=== PATIENT | female | born 1975 | race Caucasian/White ===

== ENCOUNTER 2018-11-29 12:35 | Emergency (ER) | payer SELFPAY ==
[~2018-11-29] VITALS: Ht 162.6 cm; Wt 76.2 kg
--- OUTSIDE RECORDS SUMMARY | 2018-11-29 12:41 | XMS REPORT | Referral Summary ---
Author Author [facility] Organization [facility] Address Unknown Phone Unavailable Care Team Providers Care Power Plant Supervisor Name Role Phone No PCP, Pt States PCP Encounter VC Date(s): 12/06/17 - 12/06/17 [facility] [address] [place] [address] Discharge Disposition: 07-Left Without Being Seen Vital Signs No data available for this section Problem List Condition Effective Dates Status Health Status Informant Diabetes(Confirmed) Active Hyperlipidemia(Confi Active rmed) Allergies, Adverse Reactions, Alerts No Known Allergies Medications Aleve mg, Oral, q8hr, 0 Refill(s) Start Date: 04/30/14 Status: Ordered Ativan 1 mg oral tablet 1 mg 1 tabs, Oral, TID, as needed for anxiety, # 10 tabs, 0 Refill(s) Start Date: 12/06/17 Stop Date: 12/15/17 Status: Ordered gabapentin Oral, 0 Refill(s) Start Date: 08/29/17 Status: Ordered ibuprofen 800 mg, 0 Refill(s) Start Date: 04/30/14 Status: Ordered methadone Oral, 0 Refill(s) Start Date: 08/29/17 Status: Ordered Naprosyn 250 mg oral tablet 250 mg 1 tabs, Oral, BID, as needed for pain, # 20 tabs, 0 Refill(s) Start Date: 03/09/17 Status: Ordered promethazine 25 mg oral tablet 25 mg 1 tabs, Oral, q6hr, # 12 Each, 0 Refill(s) Start Date: 03/09/17 Status: Ordered promethazine 25 mg oral tablet 25 mg 1 tabs, Oral, QID, as needed for nausea/vomiting, # 15 tabs, 0 Refill(s) Start Date: 08/29/17 Status: Ordered Results No data available for this section Immunizations No data available for this section Procedures Procedure Date Related Diagnosis Body Site Status Cholecystectomy Completed Hysterectomy Completed Left lumpectomy - cancerous Completed Melanoma Removals - several Completed Social History Social History Type Response Smoking Status Never (less than 100 in lifetime) entered on: 11/08/17 Assessment and Plan No data available for this section
--- OUTSIDE RECORDS SUMMARY | 2018-11-29 12:41 | XMS REPORT | Referral Summary ---
Author Author [facility] Organization Via [facility] Address Unknown Phone Unavailable Care Team Providers Care Aquatics Instructor Name Role Phone No PCP, Pt States PCP Encounter VC Date(s): 03/09/18 - 03/09/18 [facility] [address] [place] [address]- Encounter Diagnosis Anxiety (Discharge Diagnosis) - 03/09/18 Discharge Disposition: 01-Home or Self Care Attending Physician: Devin Zamora DO Admitting Physician: Devin Zamora DO Vital Signs Most recent to 1 oldest [Reference Range]: Temperature Oral 37 degC [35.8-37.3 degC] (03/09/18 2:02 AM) Peripheral Pulse 83 bpm Rate [60-100 bpm] (03/09/18 4:05 AM) Respiratory Rate 18 br/min [14-20 br/min] (03/09/18 4:05 AM) Blood Pressure 121/72 mmHg [90-140/60-90 mmHg] (03/09/18 4:05 AM) SpO2 98 % (03/09/18 4:05 AM) Problem List Condition Effective Dates Status Health Status Informant Diabetes(Confirmed) Active Hyperlipidemia(Confi Active rmed) Allergies, Adverse Reactions, Alerts No Known Allergies Medications Aleve mg, Oral, q8hr, 0 Refill(s) Start Date: 04/30/14 Status: Ordered gabapentin Oral, 0 Refill(s) Start [...]
--- OUTSIDE RECORDS SUMMARY | 2018-11-29 12:41 | XMS REPORT | Referral Summary ---
Author Author [facility] Organization [facility] Address Unknown Phone Unavailable Care Team Providers Care Alcohol Law Enforcement Agent Name Role Phone No PCP, Pt States PCP Encounter VC Date(s): 08/29/17 - 08/29/17 [facility] [address] [place] [address] Discharge Diagnosis: Viral illness Discharge Diagnosis: Myalgia Discharge Disposition: 01-Home or Self Care Attending Physician: Mario Starkey MD Admitting Physician: Mario Starkey MD Vital Signs Most recent to 1 oldest [Reference Range]: Temperature Oral 36.1 degC [35.8-37.3 degC] (08/29/17 6:50 AM) Peripheral Pulse 75 bpm Rate [60-100 bpm] (08/29/17 6:50 AM) Heart Rate Monitored 56 bpm [60-100 bpm] *LOW* (08/29/17 12:30 PM) Respiratory Rate 16 br/min [14-20 br/min] (08/29/17 12:30 PM) Blood Pressure 99/63 mmHg [90-140/60-90 mmHg] (08/29/17 1:00 PM) Mean Arterial 79 mmHg Pressure, Cuff (08/29/17 1:00 PM) SpO2 94 % (08/29/17 12:30 PM) Problem List Condition Effective Dates Status Health Status Informant Diabetes(Confirmed) Active Hyperlipidemia(Confi Active rmed) Allergies, Adverse Reactions, Alerts No Known Allergies Medications Aleve mg, Oral, q8hr, 0 Refill(s) Start Date: 04/30/14 Status: Ordered gabapentin Oral, 0 Refill(s) Start Date: 08/29/17 Status: Ordered ibuprofen 800 mg, 0 Refill(s) Start Date: 8/13/14 Status: Ordered methadone Oral, 0 Refill(s) Start Date: 08/29/17 Status: Ordered Naprosyn 250 mg oral tablet 250 mg 1 tabs, Oral, BID, as needed for pain, # 20 tabs, 0 Refill(s) Start Date: 03/09/17 Status: Ordered Naprosyn 500 mg oral tablet 500 mg 1 tabs, Oral, BID, # 20 tabs, 0 Refill(s) Start Date: 08/29/17 Stop Date: 09/16/17 Status: Ordered promethazine 25 mg oral tablet 25 mg 1 tabs, Oral, q6hr, # 12 Each, 0 Refill(s) Start Date: 03/09/17 Status: Ordered promethazine 25 mg oral tablet 25 mg 1 tabs, Oral, QID, as needed for nausea/vomiting, # 15 tabs, 0 Refill(s) Start Date: 08/29/17 Status: Ordered Results Hematology Most recent to 1 oldest [Reference Range]: WBC [4.8-10.8 6.1 10*3/uL 10*3/uL] (08/29/17 7:21 AM) RBC [4.00-5.20] 4.74 (08/29/17 7:21 AM) Hgb [12.0-16.0 13.3 gm/dL gm/dL] (08/29/17 7:21 AM) Hct [37.0-47.0 %] 38.8 % (08/29/17 7:21 AM) MCV [82.0-99.0 fL] 81.9 fL *LOW* (08/29/17 7:21 AM) MCH [27.0-32.0 pg] 28.1 pg (08/29/17 7:21 AM) MCHC [32.0-36.0 34.3 gm/dL gm/dL] (08/29/17 7:21 AM) RDW [11.5-14.5 %] 12.7 % (08/29/17 7:21 AM) Platelet [150-400 260 10*3/uL 10*3/uL] (08/29/17 7:21 AM) MPV [9.4-12.4 fL] 9.1 fL *LOW* (08/29/17 7:21 AM) Immature 0.2 % Granulocytes (08/29/17 AM) [0.0-1.0 %] Neutrophils [51-75 63 % %] (08/29/17 AM) Lymphocytes [20-46 27 % %] (08/29/17 AM) Monocytes [4-11 %] 7 % (08/29/17 AM) Eosinophils [0-4 %] 2 % (08/29/17) Basophils [0-2 %] 0 % (08/29/17 AM) Neutro Absolute 3.87 [1.90-7.00] (08/29/17 AM) Lymph Absolute 1.67 [0.80-3.30] (08/29/17 AM) Shack[place]ord Absolute 0.44 [0.30-1.00] (08/29/17 AM) Eos Absolute 0.10 [0.00-0.50] (08/29/17 AM) Baso Absolute 0.02 [0.00-0.20] (08/29/17 AM) Nucleated RBC 0.0 /100 WBC Automated [0 /100 (08/29/17) WBC] Chemistry Most recent to 1 oldest [Reference Range]: Sodium Lvl [136-144 137 mEq/L mEq/L] (08/29/17 AM) Potassium Lvl 3.4 mEq/L [3.6-5.1 mEq/L] *LOW* (08/29/17 AM) Chloride [99-109 101 mEq/L mEq/L] (08/29/17 AM) CO2 [22-32 mEq/L] 26 mEq/L (08/29/17 AM) AGAP [3-20 mEq/L] 10 mEq/L (08/29/17 AM) BUN [4-20 mg/dL] 11 mg/dL (08/29/17 AM) Glucose Lvl [70-100 125 mg/dL mg/dL] *HI* (08/29/17 AM) Creatinine Lvl 0.82 mg/dL [0.44-1.03 mg/dL] (12/12/17 7:21 AM) eGFR [>60 mL/min] >60 mL/min 1 (08/29/17 7:21 AM) Calcium Lvl 9.5 mg/dL [8.6-10.0 mg/dL] (08/29/17 7:21 AM) Albumin Lvl [3.5-4.8 3.9 gm/dL gm/dL] (08/29/17 7:21 AM) Total Protein 7.3 gm/dL [6.1-7.9 gm/dL] (08/29/17 7:21 AM) Globulin [1.9-4.3 3.4 gm/dL gm/dL] (08/29/17 7:21 AM) ALT [14-54 U/L] 110 U/L *HI* (08/29/17 7:21 AM) AST [15-41 U/L] 70 U/L *HI* (08/29/17 7:21 AM) Alk Phos [26-104 99 U/L U/L] (08/29/17 7:21 AM) Bili Total [0.2-1.2 1.7 mg/dL 2 mg/dL] *HI* (08/29/17 7:21 AM) Lipase Lvl [8-48 27 U/L U/L] (08/29/17 7:21 AM) 1Result Comment: Multiply eGFR results by 1.21 for race. 2Result Comment: Naproxen, specifically the metabolite O-desmethylnaproxen, may cause spurious elevation in Total Bilirubin levels. Urinalysis Most recent to 1 oldest [Reference Range]: UA Color Anju *ABN* (08/29/17 7:21 AM) UA Appear Sl Cloudy (08/29/17 7:21 AM) UA pH [5.0-8.0] 5.0 (08/29/17 7:21 AM) UA Leuk Est Pos 1+ [Negative] *ABN* (08/29/17 7:21 AM) UA Nitrite Negative [Negative] (08/29/17 7:21 AM) UA Protein Pos 1+ [Negative] *ABN* (08/29/17 7:21 AM) UA Glucose Negative [Negative] (08/29/17 7:21 AM) UA Ketones Negative [Negative] (08/29/17 7:21 AM) UA Urobilinogen >=4.0 mg/dL [<1.0 mg/dL] (08/29/17 7:21 AM) UA Bili [Negative] Negative (08/29/17 7:21 AM) UA Blood [Negative] Negative (08/29/17 7:21 AM) UA Spec Grav 1.030 [1.003-1.030] (08/29/17 7:21 AM) Type Catheter (08/29/17 7:21 AM) UA WBC [0-4] 5-10 *ABN* (08/29/17 7:21 AM) Epithelial Cells 0-2 (08/29/17 7:21 AM) UA Bacteria Occasional *ABN* (08/29/17 7:21 AM) UA Mucous Present (08/29/17 7:21 AM) Microbiology Reports TEST: Cerebrospinal Fluid Culture and Smear STATUS: Order in Progress BODY SITE: SOURCE: Cerebrospinal Fluid COLLECTED DATE/TIME: 08/29/17 11:09 AM Gram Smear No white blood cells No microorganisms observed OIF=Oil Immersion Field LPF=Low Power Field TEST: Rapid Strep Group A STATUS: Auth (Verified) BODY SITE: SOURCE: Throat COLLECTED DATE/TIME: 08/29/17 7:53 AM Rapid Strep Group A Negative Immunizations No data available for this section Procedures Procedure Date Related Diagnosis Body Site Cholecystectomy Hysterectomy Left lumpectomy - cancerous Melanoma Removals - several Social History Social History Type Response Smoking Status Never smoker entered on: 02/05/16 Assessment and Plan No data available for this section
--- OUTSIDE RECORDS SUMMARY | 2018-11-29 12:41 | XMS REPORT | Referral Summary ---
Author Author [facility] Organization [facility] Address Unknown Phone Unavailable Care Team Providers Care It Specialist Name Role Phone No PCP, Pt States PCP Encounter VC Date(s): 03/09/17 - 03/09/17 [facility] [address] [place] [address] [phone] Discharge Diagnosis: Cough Discharge Diagnosis: Body aches Discharge Disposition: 01-Home or Self Care Attending Physician: Doni Mike MD Admitting Physician: Doni Mike MD Vital Signs Most recent to 1 oldest [Reference Range]: Temperature Oral 36.9 degC [35.8-37.3 degC] (03/09/17 9:47 AM) Peripheral Pulse 88 bpm Rate [60-100 bpm] (03/09/17 9:47 AM) Respiratory Rate 20 br/min [14-20 br/min] (03/09/17 9:47 AM) Blood Pressure 127/85 mmHg [90-140/60-90 mmHg] (03/09/17 9:47 AM) SpO2 94 % (03/09/17 9:47 AM) Problem List Condition Effective Dates Status Health Status Informant Diabetes(Confirmed) Active Hyperlipidemia(Confi Active rmed) Allergies, Adverse Reactions, Alerts No Known Allergies Medications Aleve mg, Oral, q8hr, 0 Refill(s) Start Date: 04/30/14 Status: Ordered ibuprofen 800 mg, 0 Refill(s) Start Date: 04/30/14 Status: Ordered Naprosyn 250 mg oral tablet 250 mg 1 tabs, Oral, BID, as needed for pain, # 20 tabs, 0 Refill(s) Start Date: 03/09/17 Status: Ordered promethazine 25 mg oral tablet 25 mg 1 tabs, Oral, q6hr, # 12 Each, 0 Refill(s) Start Date: 03/09/17 Status: Ordered Results Chemistry Most recent to 1 oldest [Reference Range]: Sodium Venous 141 mEq/L [136-144 mEq/L] (03/09/17 10:34 AM) Potassium Venous 3.9 mEq/L 1 [3.6-5.1 mEq/L] (03/09/17 10:34 AM) Calcium Ionized 1.15 mmol/L Venous [1.19-1.41 *LOW* mmol/L] (03/09/17 10:34 AM) Total CO2 Venous 27 mEq/L [25-29 mEq/L] (03/09/17 10:34 AM) HGB Venous NPT 13.3 gm/dL [12.0-16.0 gm/dL] (03/09/17 10:34 AM) HCT Venous 39.0 % [37.0-47.0 %] (03/09/17 10:34 AM) Glucose Venous 113 mg/dL [70-100 mg/dL] *HI* (03/09/17 10:34 AM) BUN Venous [4-20] 6 (03/09/17 10:34 AM) Creatinine Venous 0.7 mg/dL [0.4-1.0 mg/dL] (03/09/17 10:34 AM) Venous CL [99-109 105 mEq/L mEq/L] (03/09/17 10:34 AM) Anion [place], Camilo [3-20 9 mEq/L mEq/L] (03/09/17 10:34 AM) Screen, Negative Urine NPT (03/09/17 10:23 AM) 1Result Comment: This test was performed on a whole blood specimen. The presence or absence of hemolysis cannot be assessed. Hemolysis can falsely elevate potassium levels. Normals are for venous specimens only. Urinalysis Most recent to 1 oldest [Reference Range]: UA Color Straw (03/09/17 10:33 AM) UA Appear Clear (03/09/17 10:33 AM) UA pH [5.0-8.0] 5.0 (03/09/17 10:33 AM) UA Leuk Est Negative [Negative] (03/09/17 10:33 AM) UA Nitrite Negative [Negative] (03/09/17 10:33 AM) UA Protein Negative [Negative] (03/09/17 10:33 AM) UA Glucose Negative [Negative] (03/09/17 10:33 AM) UA Ketones Negative [Negative] (03/09/17 10:33 AM) UA Urobilinogen Negative [<1.0] (03/09/17 10:33 AM) UA Bili [Negative] Negative (03/09/17 10:33 AM) UA Blood [Negative] Negative (03/09/17 10:33 AM) UA Spec Grav 1.010 [1.003-1.030] (03/09/17 10:33 AM) Type Voided (03/09/17 10:33 AM) Immunizations No data available for this section Procedures Procedure Date Related Diagnosis Body Site Cholecystectomy Hysterectomy Left lumpectomy - cancerous Melanoma Removals - several Social History Social History Type Response Smoking Status Never smoker Assessment and Plan No data available for this section
--- OUTSIDE RECORDS SUMMARY | 2018-11-29 12:41 | XMS REPORT | Referral Summary ---
Author Author [facility] Organization [facility] Address Unknown Phone Unavailable Care Team Providers Care Ground Crew Supervisor Name Role Phone No PCP, Pt States PCP Encounter VC Date(s): 12/06/17 - 12/06/17 [facility] [address] [place] [address] Encounter Diagnosis Panic disorder (Discharge Diagnosis) - 12/06/17 Discharge Disposition: 01-Home or Self Care Attending Physician: Mario Starkey MD Admitting Physician: Mario Starkey MD Vital Signs Most recent to 1 oldest [Reference Range]: Temperature Oral 36.5 degC [35.8-37.3 degC] (12/06/17 5:48 AM) Peripheral Pulse 112 bpm Rate [60-100 bpm] *HI* (12/06/17 5:48 AM) Respiratory Rate 26 br/min [14-20 br/min] *HI* (12/06/17 5:48 AM) Blood Pressure 122/80 mmHg [90-140/60-90 mmHg] (12/06/17 5:48 AM) SpO2 99 % (12/06/17 5:48 AM) Problem List Condition Effective Dates Status [...] lifetime) entered on: 11/08/17 Assessment and Plan Extracted from: Title: TCC - TCM Referral Author: Antoinette Cary RN Date: 12/06/17 Referral to [facility] Referral Source: ED Patient Information: D/C Date: 12/06/17 Primary Diagnosis: Panic attack Initial TCM Appointment/Provider: Clinic deferred TCM Phone Calls:Date Attempted Contacted: Yes/No Comments 12/06/17 Yes Spoke with patient's daughter Kimmy [phone] per voice mail request. Advised we do not treat mental health d/o, advised [facility], offered to send information. She stated that would be good, confirmed street address.
--- OUTSIDE RECORDS SUMMARY | 2018-11-29 12:41 | XMS REPORT | Referral Summary ---
Author Author [facility] Organization [facility] Address Unknown Phone Unavailable Care Team Providers Care Indian Nanny Name Role Phone No PCP, Pt States PCP Encounter VC Date(s): 11/08/17 - 11/08/17 [facility] [address] [place] [address] Encounter Diagnosis Panic attacks (Discharge Diagnosis) - 11/08/17 Anxiety (Discharge Diagnosis) - 11/08/17 Discharge Disposition: 01-Home or Self Care Attending Physician: Ryan Ruvalcaba DO Admitting Physician: Ryan Ruvalcaba DO Vital Signs Most recent to 1 oldest [Reference Range]: Temperature Oral 37.4 degC [35.8-37.3 degC] *HI* (11/08/17 5:58 AM) Temperature Tympanic 36.4 degC [36.6-38.1 degC] *LOW* (11/08/17 9:49 AM) Peripheral Pulse 106 bpm Rate [60-100 bpm] *HI* (11/08/17 5:58 AM) Heart Rate Monitored 50 bpm [60-100 bpm] *LOW* (11/08/17 9:40 AM) Respiratory Rate 24 br/min [14-20 br/min] *HI* (11/08/17 5:58 AM) Blood Pressure 126/82 mmHg [90-140/60-90 mmHg] (11/08/17 6:20 AM) Mean Arterial 98 mmHg Pressure, Cuff (11/08/17 6:20 AM) SpO2 93 % (11/08/17 9:40 AM) Problem List Condition Effective Dates Status Health Status Informant Diabetes(Confirmed) Active Hyperlipidemia(Confi Active rmed) Allergies, Adverse Reactions, Alerts No Known Allergies Medications Aleve mg, Oral, q8hr, 0 Refill(s) Start Date: 8/13/14 Status: Ordered gabapentin Oral, 0 Refill(s) Start [...]
--- OUTSIDE RECORDS SUMMARY | 2018-11-29 12:42 | XMS REPORT ---
Author Author MIGRATION, PROVIDER Organization Unknown Address Unknown Phone Unavailable Care Team Providers Care Envelope Sealer Name Role Phone MIGRATION, PROVIDER Unavailable Unavailable PROBLEMS Unknown Problems ALLERGIES No Information ENCOUNTERS Encounter Location Date Diagnosis [facility] [address] [place] [address] [id number] Mar, [facility] [address] [place] [address] [id number] Feb, [facility] [address] [place] [address] [id number] January, [facility] [address] [place] [address] [phone] Dec, [facility] [address] [place] [address] [id number] Nov, [facility] [address] [place] [address] [phone] Oct, [facility] [address] [place] [address] [id number] Sep, [facility] [address] [place] [address] [phone] Sep, [facility] [address] [place] [address] [id number] Aug, [facility] [address] [place] [address] [id number] Jun, [facility] [address] [place] [address] [id number] May, [facility] [address] [place] [address] [phone] May, [facility] [address] [place] [address] [phone] Apr, [facility] [address] [place] [address] [phone] Mar, IMMUNIZATIONS No Known Immunizations SOCIAL HISTORY Never Assessed REASON FOR VISIT [place] [place] CARE VITAL SIGNS MEDICATIONS Unknown Medications RESULTS No Results PROCEDURES Procedure Date Ordered Result Body Site [facility] [place] 2014-10-15 N/A INSTRUCTIONS MEDICATIONS ADMINISTERED No Known Medications
--- OUTSIDE RECORDS SUMMARY | 2018-11-29 12:42 | XMS REPORT ---
Author Author MIGRATION, PROVIDER Organization Unknown Address Unknown Phone Unavailable Care Team Providers Care Fisher Oyster Name Role Phone MIGRATION, PROVIDER Unavailable Unavailable PROBLEMS Unknown Problems ALLERGIES No Information ENCOUNTERS Encounter Location Date Diagnosis [facility] [address] [place] [address] [id number] Mar, [facility] [address] [place] [address] [id number] Feb, [facility] [address] [place] [address] [id number] January, [facility] [address] [place] [address] [phone] Dec, [facility] [address] [place] [address] [id number] Nov, [facility] [address] [place] [address] [id number] Oct, [facility] [address] [place] [address] [id number] Sep, [facility] [address] [place] [address] [id number] Sep, [facility] [address] [place] [address] [id number] Aug, [facility] [address] [place] [address] [id number] Jun, [facility] [address] [place] [address] [id number] May, [facility] [address] [place] [address] [id number] May, [facility] [address] [place] [address] [id number] Apr, [facility] [address] [place] [address] [id number] Mar, IMMUNIZATIONS No Known Immunizations SOCIAL HISTORY Never Assessed [place] [place] VITAL SIGNS MEDICATIONS Unknown Medications RESULTS No Results PROCEDURES Procedure Date Ordered Result Body Site [facility] [place] 2014-09-22 N/A INSTRUCTIONS MEDICATIONS ADMINISTERED No Known Medications
--- OUTSIDE RECORDS SUMMARY | 2018-11-29 12:42 | XMS REPORT ---
Author Author MIGRATION, PROVIDER Organization Unknown Address Unknown Phone Unavailable Care Team Providers Care Crossing Watchman Name Role Phone MIGRATION, PROVIDER Unavailable Unavailable PROBLEMS Unknown Problems ALLERGIES No Information ENCOUNTERS Encounter Location Date Diagnosis [facility] [address] [place] [address] [id number] Mar, [facility] [address] [place] [address] [id number] Feb, [facility] [address] [place] [address] [id number] January, [facility] [address] [place] [address] [id number] Dec, [facility] [address] [place] [address] [id number] Nov, [facility] [address] [place] [address] [id number] Oct, [facility] [address] [place] [address] [id number] Sep, [facility] [address] [place] [address] [id number] Sep, [facility] [address] [place] [address] [id number] Aug, [facility] [address] [place] [address] [id number] Jun, [facility] [address] [place] [address] [phone] May, [facility] [address] [place] [address] [id number] May, [facility] [address] [place] [address] [id number] Apr, [facility] [address] [place] [address] [phone] Mar, IMMUNIZATIONS No Known Immunizations SOCIAL HISTORY Never Assessed REASON FOR VISIT [place] [place] CARE VITAL SIGNS MEDICATIONS Unknown Medications RESULTS No Results PROCEDURES Procedure Date Ordered Result Body Site [facility] [place] 2015-01-09 N/A INSTRUCTIONS MEDICATIONS ADMINISTERED No Known Medications
--- OUTSIDE RECORDS SUMMARY | 2018-11-29 12:42 | XMS REPORT ---
Author Author MIGRATION, PROVIDER Organization Unknown Address Unknown Phone Unavailable Care Team Providers Care Meat Soaker Name Role Phone MIGRATION, PROVIDER Unavailable Unavailable PROBLEMS Unknown Problems ALLERGIES No Information ENCOUNTERS Encounter Location Date Diagnosis [facility] [address] [place] [address] [id number] Mar, [facility] [address] [place] [address] [id number] Feb, [facility] [address] [place] [address] [id number] January, [facility] [address] [place] [address] [id number] Dec, [facility] [address] [place] [address] [id number] Nov, [facility] [address] [place] [address] [phone] Oct, [facility] [address] [place] [address] [id number] Sep, [facility] [address] [place] [address] [id number] Sep, [facility] [address] [place] [address] [id number] Aug, [facility] [address] [place] [address] [id number] Jun, [facility] [address] [place] [address] [id number] May, [facility] [address] [place] [address] [id number] May, [facility] [address] [place] [address] [phone] Apr, [facility] [address] [place] [address] [id number] Mar, IMMUNIZATIONS No Known Immunizations SOCIAL HISTORY Never Assessed REASON FOR VISIT [facility] [place] PLAN OF CARE VITAL SIGNS MEDICATIONS Unknown Medications RESULTS No Results PROCEDURES Procedure Date Ordered Result Body Site [facility] 2014-06-16 N/A INSTRUCTIONS MEDICATIONS ADMINISTERED No Known Medications
--- OUTSIDE RECORDS SUMMARY | 2018-11-29 12:42 | XMS REPORT ---
Author Author MIGRATION, PROVIDER Organization Unknown Address Unknown Phone Unavailable Care Team Providers Care Turnaround Engineer Name Role Phone MIGRATION, PROVIDER Unavailable Unavailable PROBLEMS Unknown Problems ALLERGIES No Information ENCOUNTERS Encounter Location Date Diagnosis [facility] [address] [place] [address] [phone] Mar, [facility] [address] [place] [address] [phone] Feb, [facility] [address] [place] [address] [phone] January, [facility] [address] [place] [address] [phone] Dec, [facility] [address] [place] [address] [phone] Nov, [facility] [address] [place] [address] [phone] Oct, [facility] [address] [place] [address] [id number] Sep, [facility] [address] [place] [address] [id number] Sep, [facility] [address] [place] [address] [id number] Aug, [facility] [address] [place] [address] [phone] Jun, [facility] [address] [place] [address] [phone] May, [facility] [address] [place] [address] [phone] May, [facility] [address] [place] [address] [phone] Apr, [facility] [address] [place] [address] [phone] Mar, IMMUNIZATIONS No Known Immunizations SOCIAL HISTORY Never Assessed REASON FOR VISIT [facility] [place] PLAN OF CARE VITAL SIGNS MEDICATIONS Unknown Medications RESULTS No Results PROCEDURES Procedure Date Ordered Result Body Site [facility]ICAL [facility], [facility] 2015-03-25 N/A INSTRUCTIONS MEDICATIONS ADMINISTERED No Known Medications
--- OUTSIDE RECORDS SUMMARY | 2018-11-29 12:42 | XMS REPORT | Continuity of Care Document ---
Author Author Rosario Kemp MD Organization [facility] [address] [facility] [place] [address] Phone Care Team Providers Care Guest Relations Receptionist Name Role Phone [facility], . PP Unavailable Payers Payer name Insurance type Covered libertarian ID Authorization(s) Unknown Problems Condition Effective Dates (start - stop) Clinical Status Carpal Tunnel Syndrome - *[place] Family History Family Member Diagnosis Age At Onset Status Sister (Unknown) Diabetes Yes Mother (Unknown) Cancer - thyroid Yes Sister (Unknown) Heart disease Yes Mother (Unknown) Hypertension Yes Social History Social History Element Description Quantity Unknown Allergies, Adverse Reactions, Alerts Substance Reaction Severity Status Unknown Medications Medication Instructions Dosage Effective Dates (start - stop) Status Lortab 5 mg-500 mg tablet take 1 tablet by oral route every 4 - 6 hours as needed for pain 0 - Active Immunizations Vaccine Date Status Comments Unknown Results Test Name Date and Time Measure Units Reference Range Abnormal Flag Comments Unknown Vital Signs Date / Time: Height Weight Pulse Rate Blood Pressure Temperature /14:15:00 64.00 in 158.00 lbs Procedures Procedure Date Unknown Encounters Encounter Location Date Patient Visit [facility] Advance Directives Directive Effective Date Unknown
--- OUTSIDE RECORDS SUMMARY | 2018-11-29 12:42 | XMS REPORT ---
Author Author MIGRATION, PROVIDER Organization Unknown Address Unknown Phone Unavailable Care Team Providers Care Observer Gravity Prospecting Name Role Phone MIGRATION, PROVIDER Unavailable Unavailable PROBLEMS Unknown Problems ALLERGIES No Information ENCOUNTERS Encounter Location Date Diagnosis [facility] [address] [place] [address] [phone] Mar, [facility] [address] [place] [address] [id number] Feb, [facility] [address] [place] [address] [phone] January, [facility] [address] [place] [address] [phone] Dec, [facility] [address] [place] [address] [id number] Nov, [facility] [address] [place] [address] [id number] Oct, [facility] [address] [place] [address] [phone] Sep, [facility] [address] [place] [address] [phone] Sep, [facility] [address] [place] [address] [phone] Aug, [facility] [address] [place] [address] [phone] Jun, [facility] [address] [place] [address] [phone] May, [facility] [address] [place] [address] [phone] May, [facility] [address] [place] [address] [phone] Apr, [facility] [address] [place] [address] [phone] Mar, IMMUNIZATIONS No Known Immunizations SOCIAL HISTORY Never Assessed REASON FOR VISIT EMR-[facility] [place] PLAN OF CARE VITAL SIGNS MEDICATIONS Unknown Medications RESULTS No Results PROCEDURES Procedure Date Ordered Result Body Site [facility], [facility] 2014-07-10 N/A INSTRUCTIONS MEDICATIONS ADMINISTERED No Known Medications
--- OUTSIDE RECORDS SUMMARY | 2018-11-29 12:42 | XMS REPORT ---
Author Author MIGRATION, PROVIDER Organization Unknown Address Unknown Phone Unavailable Care Team Providers Care Physical Chemistry Professor Name Role Phone MIGRATION, PROVIDER Unavailable Unavailable PROBLEMS Unknown Problems ALLERGIES No Information ENCOUNTERS Encounter Location Date Diagnosis [facility] [address] [place] [address] [id number] Mar, [facility] [address] [place] [address] [phone] Feb, [facility] [address] [place] [address] [phone] January, [facility] [address] [place] [address] [phone] Dec, [facility] [address] [place] [address] [phone] Nov, [facility] [address] [place] [address] [phone] Oct, [facility] [address] [place] [address] [phone] Sep, [facility] [address] [place] [address] [phone] Sep, [facility] [address] [place] [address] [phone] Aug, [facility] [address] [place] [address] [phone] Jun, [facility] [address] [place] [address] [phone] May, [facility] [address] [place] [address] [phone] May, [facility] [address] [place] [address] [phone] Apr, [facility] [address] [place] [address] [phone] Mar, IMMUNIZATIONS No Known Immunizations SOCIAL HISTORY Never Assessed REAS[place] FOR VISIT [place] [place] VITAL SIGNS MEDICATIONS Unknown Medications RESULTS No Results PROCEDURES Procedure Date Ordered Result Body Site [facility], [facility] 2014-11-14 N/A INSTRUCTIONS MEDICATIONS ADMINISTERED No Known Medications
--- OUTSIDE RECORDS SUMMARY | 2018-11-29 12:42 | XMS REPORT ---
Author Author MIGRATION, PROVIDER Organization Unknown Address Unknown Phone Unavailable Care Team Providers Care City Distribution Clerk Name Role Phone MIGRATION, PROVIDER Unavailable Unavailable PROBLEMS Unknown Problems ALLERGIES No Information ENCOUNTERS Encounter Location Date Diagnosis [facility] [address] [place] [address] [phone] Mar, [facility] [address] [place] [address] [id number] Feb, [facility] [address] [place] [address] [phone] January, [facility] [address] [place] [address] [id number] Dec, [facility] [address] [place] [address] [phone] Nov, [facility] [address] [place] [address] [phone] Oct, [facility] [address] [place] [address] [phone] Sep, [facility] [address] [place] [address] [phone] Sep, [facility] [address] [place] [address] [phone] Aug, [facility] [address] [place] [address] [phone] Jun, [facility] [address] [place] [address] [phone] May, [facility] [address] [place] [address] [phone] May, [facility] [address] [place] [address] [phone] Apr, [facility] [address] [place] [address] [phone] Mar, IMMUNIZATIONS No Known Immunizations SOCIAL HISTORY Never Assessed REAS[place] FOR V[place]IT [place] [place] VITAL SIGNS MEDICATIONS Unknown Medications RESULTS No Results PROCEDURES Procedure Date Ordered Result Body Site [facility] [place] 2014-06-17 N/A INSTRUCTIONS MEDICATIONS ADMINISTERED No Known Medications
--- OUTSIDE RECORDS SUMMARY | 2018-11-29 12:42 | XMS REPORT ---
Author Author MIGRATION, PROVIDER Organization Unknown Address Unknown Phone Unavailable Care Team Providers Care Coke Loader Name Role Phone MIGRATION, PROVIDER Unavailable Unavailable PROBLEMS Unknown Problems ALLERGIES No Information ENCOUNTERS Encounter Location Date Diagnosis [facility] [address] [place] [address] [id number] Mar, [facility] [address] [place] [address] [phone] Feb, [facility] [address] [place] [address] [phone] January, [facility] [address] [place] [address] [phone] Dec, [facility] [address] [place] [address] [phone] Nov, [facility] [address] [place] [address] [phone] Oct, [facility] [address] [place] [address] [phone] Sep, [facility] [address] [place] [address] [phone] Sep, [facility] [address] [place] [address] [phone] Aug, [facility] [address] [place] [address] [phone] Jun, [facility] [address] [place] [address] [phone] May, [facility] [address] [place] [address] [phone] May, [facility] [address] [place] [address] [phone] Apr, [facility] [address] [place] [address] [phone] Mar, IMMUNIZATIONS No Known Immunizations SOCIAL HISTORY Never Assessed REASON FOR VISIT EMR-[facility] PLAN OF CARE VITAL SIGNS MEDICATIONS Unknown Medications RESULTS No Results PROCEDURES Procedure Date Ordered Result Body Site [facility]ICAL [facility], [facility] 2014-09-08 N/A INSTRUCTIONS MEDICATIONS ADMINISTERED No Known Medications
--- OUTSIDE RECORDS SUMMARY | 2018-11-29 12:43 | XMS REPORT | Continuity of Care Document ---
Author Author [facility] Address Unknown Phone Unavailable Allergies Active Description Code Type Severity Reaction Onset Reported/Identified Relationship to Patient Clinical Status Yes No Known Allergies Drug Allergy N/A N/A 05/04/2013 Yes No Known Drug Allergies Drug Allergy N/A N/A 05/04/2013 Yes No Known Food Allergies Food Allergy N/A N/A 05/04/2013 Yes No Known Allergies NKMA N/A N/A 04/30/2014 Yes No Known Allergies No Known Allergies Drug Allergy Unknown N/A 2015 Medications Medication Packaging Start Date Stop Date Route Dosage Sig ibuprofen(ibuprofen) 04/30/2014 800 mg 800 mg naproxen(Aleve) 04/30/2014 Oral mg mg, Oral, q8hr ondansetron(Zofran) 2 mL 201603/09/2017 IV Push 4 mg 4 mg=2 mL, IV Push, Once ketorolac(Toradol) 1 mL 03/09/2017 03/09/2017 IV Push 15 mg 15 mg=1 mL, IV Push, Once promethazine(promethazine 25 mg oral tablet) 1 tabs 03/09/2017 Oral 25 mg 25 mg=1 tabs, Oral, q6hr, 12 Each, 0 Refill(s) naproxen(Naprosyn 250 mg oral tablet) 1 tabs 03/09/2017 Oral 250 mg 250 mg=1 tabs, Oral, BID, PRN: as needed for pain, 20 tabs, 0 Refill(s) ondansetron(Zofran) 2 mL 201608/29/2017 IV Push 4 mg 4 mg=2 mL, IV Push, q30min, PRN: Nausea or Vomiting methadone(methadone) 08/29/2017 Oral Oral, 0 Refill( s) gabapentin(gabapentin) 2016 Oral Oral, 0 Refill(s) metoclopramide(metoclopramide) 2 mL 08/29/2017 08/29/2017 IV Push 10 mg 10 mg=2 mL, IV Push, Once diphenhydrAMINE(diphenhydrAMINE) 0.5 mL 08/29/2017 08/29/2017 IV Push 25 mg 25 mg=0.5 mL, IV Push, Once HYDROmorphone(Dilaudid) 1 mL 201608/29/2017 IV Push 1 mg 1 mg=1 mL, IV Push, Once, PRN: Pain promethazine(promethazine 25 mg oral tablet) 1 tabs 08/29/2017 Oral 25 mg 25 mg=1 tabs, Oral, QID, PRN: as needed for nausea/vomiting, 15 tabs, 0 Refill(s) naproxen(Naprosyn 500 mg oral tablet) 1 tabs 08/29/2017 09/16/2017 Oral 500 mg 500 mg=1 tabs, Oral, BID, 20 tabs, 0 Refill(s) LORazepam(Ativan) 1 mL 12/06/2017 12/06/2017 IntraMuscular 2 mg 2 mg=1 mL, IntraMuscular, Once LORazepam(Ativan 1 mg oral tablet) 1 tabs 12/06/2017 12/15/2017 Oral 1 mg 1 mg=1 tabs, Oral, TID, PRN: as needed for anxiety, 10 tabs, 0 Refill(s) acetaminophen(acetaminophen) 2 tabs 05/27/2018 05/27/2018 Oral 1,000 mg 1,000 mg=2 tabs, Oral, Once albuterol(ProAir HFA 90 mcg/inh inhalation aerosol) 1 puffs 05/27/2018 Inhalation 1 puffs, Inhalation, q4hr, use with spacer chamber , PRN: as needed for wheezing, 8.5 g, 0 Refill(s) azithromycin(azithromycin 250 mg oral tablet) 1 tabs 05/27/2018 06/01/2018 Oral 250 mg 250 mg=1 tabs, Oral, Daily, for 5 days, 2 tabs PO day 1, 1 tab/day after that, 6 tabs, 0 Refill(s) acetaminophen(acetaminophen 500 mg oral tablet) 2 tabs 05/27/2018 06/01/2018 Oral 1,000 mg max 4 grams/ 24 hours, X 5 days, # 24 tabs, 0 Refill(s) 1,000 mg=2 tabs, Oral, TID, for 5 days, PRN: Pain max 4 grams/ 24 hours, 24 tabs, 0 Refill(s) ipratropium-albuterol(DuoNeb 0.5 mg-2.5 mg/3 mL inhalation solution ) 3 mL 05/27/2018 05/27/2018 NEB 3 mL, NEB, Once HYDROcodone-acetaminophen([place] 5 mg-325 mg oral tablet) 1 tabs 05/27/2018 05/27/2018 Oral 1 tabs, Oral, Once Problems Date Dx Coded Attending Type Code Diagnosis Diagnosed By 03/20/2013 Riki Presley DO Final 079.99 VIRAL INFECTION NOS 03/20/2013 Riki Presley DO Final 250.00 DM2/NOS UNCOMP NSU 03/20/2013 Riki Presley DO Admitting 786.2 COUGH 05/04/2013 Devin Zamora DO Final 250.00 DM2/NOS UNCOMP NSU 05/04/2013 Devin Zamora DO Final 338.19 ACUTE PAIN NEC 05/04/2013 Devin Zamora DO Final 338.29 CHRONIC PAIN NEC 05/04/2013 Devin Zamora DO Final 724.2 LUMBAGO 05/04/2013 Devin Zamora DO 724.5 BACKACHE NOS 08/30/2013 Festus PUCKETT, Catherine Y A 729.5 PAIN IN LIMB 08/02/2014 Jones Gan MD 008.45 INTESTINAL INFECTION DUE TO CLOSTRIDIUM DIFFICILE 08/02/2014 Jones Gan MD 272.1 PURE HYPERGLYCERIDEMIA 08/02/2014 Jones Gan MD 272.4 HYPERLIPIDEMIA NEC/NOS 08/02/2014 Jones Gan MD 789.09 08/02/2014 Jones Gan MD V10.90 PERSONAL HISTORY OF UNSPECIFIED MALIGNANT NEOPLASM 09/08/2014 [employer], [id number] V71.09 OBSERVATION OF OTHER SUSPECTED MENTAL CONDITION 03/14/2017 Mike Howard Final E11.9 Type 2 diabetes mellitus without complications 03/14/2017 Mike Howard Final K50.90 Crohn''s disease, unspecified, without complications 03/14/2017 Mike Howard Final R05 Cough 03/14/2017 Mike Howard Reason R50.9 Fever, unspecified 03/14/2017 Mike Howard Final R52 Pain, unspecified 03/14/2017 Rashid,Doni Final Z90.49 Acquired absence of other specified parts of digestive tract 03/14/2017 Rashid,Doni Final Z90.710 Acquired absence of both cervix and uterus 08/30/2017 Vayda,, Mario Final B34.9 Viral infection, unspecified 08/30/2017 Vayda,, Mario Final E11.9 Type 2 diabetes mellitus without complications 08/30/2017 Vayda,, Mario Final E78.5 Hyperlipidemia, unspecified 08/30/2017 Vayda,, Mario Final M79.1 Myalgia 08/30/2017 Vayda,, Mario Reason R68.83 Chills (without fever) 08/30/2017 Vayda,, Mario Final Z79.891 jail (current) use of opiate analgesic 08/30/2017 Vayda,, Mario Final Z90.49 Acquired absence of other specified parts of digestive tract 11/09/2017 Ryan Ruvalcaba Final E11.9 Type 2 diabetes mellitus without complications 11/09/2017 Ryan Ruvalcaba Final E78.5 Hyperlipidemia, unspecified 11/09/2017 Ryan Ruvalcaba Reason F41.0 Panic disorder [episodic paroxysmal anxiety] 11/09/2017 Ryan Ruvalcaba Final Z85.820 Personal history of malignant melanoma of skin 11/09/2017 Ryan Ruvalcaba Final Z90.49 Acquired absence of other specified parts of digestive tract 11/09/2017 Ryan Ruvalcaba Final Z90.710 Acquired absence of both cervix and uterus 12/07/2017 Mike Howard Reason R69 Illness, unspecified 12/14/2017 Vayda,, Mario Final E11.9 Type 2 diabetes mellitus without complications 12/14/2017 Vayda,, Mario Final E78.5 Hyperlipidemia, unspecified 12/14/2017 Vayda,, Mario Reason F41.0 Panic disorder [episodic paroxysmal anxiety] 12/14/2017 Vayda,, Mario Final I10 Essential (primary) hypertension 12/14/2017 Vayda,, Mario Final Z90.49 Acquired absence of other specified parts of digestive tract 12/14/2017 Vayda,, Mario Final Z90.710 Acquired absence of both cervix and uterus 03/12/2018 Zamora Jacob Final E11.9 Type 2 diabetes mellitus without complications 03/12/2018 Zamora Jacob Reason F41.9 Anxiety disorder, unspecified 05/30/2018 Rashid,Doni Final E11.9 Type 2 diabetes mellitus without complications 05/30/2018 Rashid,Doni Final E78.5 Hyperlipidemia, unspecified 05/30/2018 Rashid,Doni Final I10 Essential (primary) hypertension 05/30/2018 Rashid,Doni Final J18.9 Pneumonia, unspecified organism 05/30/2018 Rashid,Doni Final J20.9 Acute bronchitis, unspecified 05/30/2018 Rashid,, Doni Final J32.9 Chronic sinusitis, unspecified 05/30/2018 Rashid,Doni Reason R05 Cough 05/30/2018 Rashid,Doni Final Z90.49 Acquired absence of other specified parts of digestive tract 05/30/2018 Rashid,Doni Final Z90.710 Acquired absence of both cervix and uterus Procedures Code Description Performed By Performed On 86.59 CLOSURE SKIN SUBCUTANEOUS NEC [employer]pilart Flo [place] B 08/01/2013 [id number] [facility], MAINTENANCE 09/13/2014 <section xmlns="urn:hl7-org:v3" xmlns:xsi="http://www.w3.org/2001/ XMLSchema-instance"> <templateId root="[id number]" /> < templateId root="[id number]" /> <code codeSystemName= "LOINC" codeSystem="[id number]" code="88080-3" displayName="Results" /> <title>Results</title> <text> <table> <thead> <tr> <th>Test</th> <th>Result</th> <th>Range</th> </tr> </thead> <tbody> <tr> <th colspan="10">CBC W/DIFF - 08/02 10:45</th> </tr> <tr> <td>EOSINOPHIL #</td> <td>0.2 k/cumm</td> <td>0.1-0.5</td> </tr> <tr> <td>EOSINOPHIL %</td> <td>2 %</td> <td>2-4</td> </tr> <tr> <td>GRANULOCYTE #</td> <td>5.0 k/cumm</td > <td>2.0-9.0</td> </tr> <tr> <td>GRANULOCYTE &# 37;</td> <td>58 %</td> <td>50-75</td> </tr> <tr> <td>LYMPHOCYTE #</td> <td>2.9 k/cumm</td> <td> 1.0-4.0</td> </tr> <tr> <td>LYMPHOCYTE %</td> <td>34 %</td> <td>20-30</td> </tr> <tr> < td>MEAN CELL HGB</td> <td>28.0 pg</td> <td>27.0-33.0</td> </tr> <tr> <td>MEAN CELL HGB CONCENTRATION</td> <td >34.3 g/dL</td> <td>32.0-37.0</td> </tr> <tr> < td>MEAN CELL VOLUME</td> <td>81.5 fl</td> <td>80.0-100.0</td> </tr> <tr> <td>MONOCYTE #</td> <td>0.6 k/cumm</ td> <td>0.1-1.0</td> </tr> <tr> <td>MONOCYTE &# 37;</td> <td>6 %</td> <td>4-6</td> </tr> <tr > <td>RED BLOOD CELL</td> <td>4.65 m/cumm</td> <td> 4.00-6.00</td> </tr> <tr> <td>RED CELL DISTRIBUTION WIDTH </td> <td>13.1 %</td> <td>11.0-15.6</td> </tr> <tr> <td>WHITE BLOOD CELL</td> <td>8.6 k/cumm</td> <td>5.0-10.0</td> </tr> <tr> <td>HEMOGLOBIN</td> <td>13.0 gm/dL</td> <td>12.0-16.0</td> </tr> <tr> <td>HEMATOCRIT</td> <td>37.9 %</td> <td>37.0-47.0< /td> </tr> <tr> <td>PLATELET COUNT</td> <td>252 k/cumm</td> <td>150-450</td> </tr> <tr> < colspan="10">URINALYSIS, ROUTINE - 08/02/14 10:45</th> </tr> <tr> <td>UA LEUKOCYTE ESTERASE DIPSTICK</td> <td>NEGATIVE </td> <td>NEGATIVE</td> </tr> <tr> <td>UA NITRITE DIPSTICK</td> <td>NEGATIVE </td> <td>NEGATIVE</td> </tr > <tr> <td>UA PROTEIN DIPSTICK</td> <td>NEGATIVE </td> <td>NEGATIVE</td> </tr> <tr> <td>UA GLUCOSE DIPSTICK</td> <td>NEGATIVE </td> <td>NEGATIVE</td> </tr > <tr> <td>UA KETONE DIPSTICK</td> <td>NEGATIVE </td> <td>NEGATIVE</td> </tr> <tr> <td>UA UROBILINOGEN DIPSTICK</td> <td>NORMAL </td> <td>NORMAL</td> </tr> <tr> <td>UA BILIRUBIN DIPSTICK</td> <td> NEGATIVE </td> <td>NEGATIVE</td> </tr> <tr> <td> UA BLOOD DIPSTICK</td> <td>NEGATIVE </td> <td>NEGATIVE</td> </tr> <tr> <td>UA SPECIFIC GRAVITY</td> <td> 1.020 </td> <td>1.015-1.025</td> </tr> <tr> <td> UR PH</td> <td>5.0 </td> <td>5.0-7.0</td> </tr> <tr> <th colspan="10">METABOLIC PANEL, COMPREHN - 08/02/14 10:45</th> </tr> <tr> <td>POTASSIUM</td> <td>3.7 mmol/L</td > <td>3.5-5.3</td> </tr> <tr> <td>EST GFR (MDRD) </td> <td>> 60 mL/min</td> <td>> 59</td> </tr> <tr> <td>ANION GAP</td> <td>12 mmol/L</td> <td> 5-15</td> </tr> <tr> <td>EST CrCl (CG)</td> <td> > 60 mL/min</td> <td>> 59</td> </tr> <tr> <td>GLUCOSE</td> <td>146 mg/dL</td> <td>70-99</td> </tr > <tr> <td>CALCIUM</td> <td>8.6 mg/dL</td> <td >8.5-10.1</td> </tr> <tr> <td>BLOOD UREA NITROGEN</td> <td>7 mg/dL</td> <td>7-20</td> </tr> <tr> <td>CREATININE</td> <td>1.0 mg/dL</td> <td>0.6-1.0</td> </tr> <tr> <td>SODIUM</td> <td>142 mmol/L</td> <td>135-148</td> </tr> <tr> <td>CHLORIDE</td> <td>104 mmol/L</td> <td>98-110</td> </tr> <tr> <td>AST/SGOT</td> <td>30 Units/L</td> <td>10-37</td> </tr> <tr> <td>ALT/SGPT</td> <td>53 Units/L</td> <td>< 66</td> </tr> <tr> <td>CARBON DIOXIDE</ td> <td>26 mmol/L</td> <td>21-32</td> </tr> <tr > <td>TOTAL PROTEIN</td> <td>6.7 gm/dL</td> <td>6.4- 8.2</td> </tr> <tr> <td>ALBUMIN</td> <td>3.3 gm/ dL</td> <td>3.4-5.0</td> </tr> <tr> <td>BILI TOTAL</td> <td>0.7 mg/dL</td> <td>0.0-1.0</td> </tr> <tr> <td>ALKALINE PHOSPHATASE TOTAL</td> <td>96 IU/L</td > <td>45-117</td> </tr> <tr> <th colspan="10"> LIPASE - 08/02/14 10:45</th> </tr> <tr> <td>LIPASE</td> <td>107 Units/L</td> <td>73-393</td> </tr> <tr> <th colspan="10">C REACTIVE PROTEIN - 08/02/14 10:45</th> </tr > <tr> <td>C REACTIVE PROTEIN</td> <td>2.8 mg/L</td> <td>< 8.0</td> </tr> <tr> <th colspan="10"> CAMPYLOBACTER ANTIGEN - 08/02/14 10:50</th> </tr> <tr> < td>Microbiology</td> <td> </td> <td /> </tr> <tr > <th colspan="10">STOOL LEUKOCYTES - 08/02/14 10:50</th> </tr> <tr> <td>Microbiology</td> <td> </td> <td /> </tr> <tr> <th colspan="10">CLOSTRIDIUM DIFFICILE DNA - 08/02/14 10:50</th> </tr> <tr> <td>Microbiology</td> <td> </td> <td /> </tr> <tr> <th colspan= "10">THYROID STIM HORMONE (TSH) - 08/02/14 10:54</th> </tr> <tr> <td>THYROID STIM HORMONE (TSH)</td> <td>1.56 uIU/mL</td> <td>0.34-4.82</td> </tr> <tr> <th colspan="10">SED RATE - 08/02/14 10:54</th> </tr> <tr> <td>SED RATE</td> <td>11 mm/hr</td> <td>0-15</td> </tr> <tr> <th colspan="10">CBC W/DIFF - 08/03/14 05:48</th> </tr> <tr> <td>COMMENT</td> <td>REVIEWED </td> <td /> </ tr> <tr> <td>GRANULOCYTE #</td> <td>8.8 k/cumm</td> <td>2.0-9.0</td> </tr> <tr> <td>GRANULOCYTE %< /td> <td>77 %</td> <td>50-75</td> </tr> <tr > <td>LYMPHOCYTE #</td> <td>1.9 k/cumm</td> <td>1.0- 4.0</td> </tr> <tr> <td>LYMPHOCYTE %</td> < td>16 %</td> <td>20-30</td> </tr> <tr> <td> MEAN CELL HGB</td> <td>27.1 pg</td> <td>27.0-33.0</td> </tr> <tr> <td>MEAN CELL HGB CONCENTRATION</td> <td> 33.0 g/dL</td> <td>32.0-37.0</td> </tr> <tr> <td >MEAN CELL VOLUME</td> <td>82.0 fl</td> <td>80.0-100.0</td> </tr> <tr> <td>MONOCYTE #</td> <td>0.7 k/cumm</td > <td>0.1-1.0</td> </tr> <tr> <td>MONOCYTE % </td> <td>6 %</td> <td>4-6</td> </tr> <tr> <td>RED BLOOD CELL</td> <td>4.51 m/cumm</td> <td>4.00 -6.00</td> </tr> <tr> <td>RED CELL DISTRIBUTION WIDTH</td > <td>12.8 %</td> <td>11.0-15.6</td> </tr> < tr> <td>WHITE BLOOD CELL</td> <td>11.5 k/cumm</td> < td>5.0-10.0</td> </tr> <tr> <td>HEMOGLOBIN</td> <td>12.2 gm/dL</td> <td>12.0-16.0</td> </tr> <tr> <td>HEMATOCRIT</td> <td>37.0 %</td> <td>37.0-47.0</td> </tr> <tr> <td>PLATELET COUNT</td> <td>255 k/ cumm</td> <td>150-400</td> </tr> <tr> <th colspan="10">RENAL FUNCTION PANEL - 08/03/14 05:48</th> </tr> <tr > <td>POTASSIUM</td> <td>4.8 mmol/L</td> <td>3.5-5.3< /td> </tr> <tr> <td>EST GFR (MDRD)</td> <td>&gt ; 60 mL/min</td> <td>> 59</td> </tr> <tr> <td >ANION GAP</td> <td>7 mmol/L</td> <td>5-15</td> </tr> <tr> <td>EST CrCl (CG)</td> <td>> 60 mL/min</td> <td>> 59</td> </tr> <tr> <td>GLUCOSE</td> <td>135 mg/dL</td> <td>70-99</td> </tr> <tr> <td>CALCIUM</td> <td>8.8 mg/dL</td> <td>8.5-10.1</td> </tr> <tr> <td>BLOOD UREA NITROGEN</td> <td>4 mg/dL< /td> <td>7-20</td> </tr> <tr> <td>CREATININE</td > <td>0.8 mg/dL</td> <td>0.6-1.0</td> </tr> <tr > <td>SODIUM</td> <td>143 mmol/L</td> <td>135-148</td > </tr> <tr> <td>CHLORIDE</td> <td>110 mmol/L</ td> <td>98-110</td> </tr> <tr> <td>CARBON DIOXIDE</td> <td>26 mmol/L</td> <td>21-32</td> </tr> <tr> <td>ALBUMIN</td> <td>3.0 gm/dL</td> <td> 3.4-5.0</td> </tr> <tr> <td>PHOSPHORUS</td> <td> 2.5 mg/dL</td> <td>2.5-4.9</td> </tr> <tr> <th colspan="10">MAGNESIUM - 08/03/14 05:48</th> </tr> <tr> < td>MAGNESIUM</td> <td>1.5 mg/dL</td> <td>1.8-2.4</td> < /tr> <tr> <th colspan="10">AB SACCHAROMYCES CEREVISIAE - 05:48</th> </tr> <tr> <td>INTERPRETATION</td> <td>TEST NOT PERFORMED </td> <td /> </tr> <tr> <td>AB SACCHAROMYCES CEREVISIAE</td> <td>TEST NOT PERFORMED </td> <td>< 20</td> </tr> <tr> <td>AB SACCHAROMYCES CEREVISIAE</td> <td>TEST NOT PERFORMED </td> <td>< 20</td> </tr> <tr> < colspan="10">MRSA SURVEILLANCE SCREEN - 08/04/14 14:05</th> </tr> <tr> <td>Microbiology</td> <td> </td> <td /> </tr> <tr> < colspan= "10"> Screen, Urine NPT - 03/09/17 10:23</th> </tr> <tr> <td> Screen, Urine NPT</td> <td>Negative NA</td> <td /> </tr> <tr> <th colspan="10">Urinalysis with reflex microscopic - 03/09/17 10:33</th> </tr> <tr> <td>Appearance</td> <td>Clear NA</td> <td /> </tr> <tr> <td>Bilirubin</td> <td>Negative NA</td> <td> Negative</td> </tr> <tr> <td>Blood</td> <td> Negative NA</td> <td>Negative</td> </tr> <tr> < td>Color</td> <td>Straw NA</td> <td /> </tr> <tr > <td>Glucose, Urine</td> <td>Negative </td> <td> Negative</td> </tr> <tr> <td>Ketones</td> <td> Negative </td> <td>Negative</td> </tr> <tr> <td> Leukocyte Esterase</td> <td>Negative NA</td> <td>Negative</td > </tr> <tr> <td>Nitrites</td> <td>Negative NA</ td> <td>Negative</td> </tr> <tr> <td>pH</td> <td>5.0 NA</td> <td>5.0-8.0</td> </tr> <tr> <td>Protein</td> <td>Negative NA</td> <td>Negative</td> </tr> <tr> <td>Specific [place]</td> <td>1.010 NA </td> <td>1.003-1.030</td> </tr> <tr> <td>UA Collection type</td> <td>Voided NA</td> <td /> </tr> <tr> <td>Urobilinogen</td> <td>Negative mg/dL</td> <td><1.0</td> </tr> <tr> <th colspan="10">Chem 8 NPT - 03/09/17 10:34</th> </tr> <tr> <td>Anion Gap</td> <td>9 mEq/L</td> <td>3-20</td> </tr> <tr> <td>BUN Venous</td> <td>6 mg/dl</td> <td>4-20</td> </tr> <tr> <td>Calcium Ionized Venous</td> <td>1.15 mmol/L</td> <td>1.19-1.41</td> </tr> <tr> <td> Creatinine Venous</td> <td>0.7 mg/dL</td> <td>0.4-1.0</td> </tr> <tr> <td>Glucose Venous</td> <td>113 mg/dL</ td> <td>70-100</td> </tr> <tr> <td>Potassium, WB </td> <td>3.9 mEq/L</td> <td>3.6-5.1</td> </tr> <tr> <td>Sodium Venous</td> <td>141 mEq/L</td> <td> 136-144</td> </tr> <tr> <td>Total CO2 Venous</td> <td>27 mEq/L</td> <td>25-29</td> </tr> <tr> < td>Venous CL</td> <td>105 mEq/L</td> <td>99-109</td> </ tr> <tr> <td>HCT Venous</td> <td>39.0 %</td> <td>37.0-47.0</td> </tr> <tr> <td>HGB Venous NPT</td > <td>13.3 g/dL</td> <td>12.0-16.0</td> </tr> < tr> <th colspan="10">CBC With Platelet and Differential - 08/29/17 07: 21</th> </tr> <tr> <td>Absolute Basophils</td> < td>0.02 10*3/uL</td> <td>0.00-0.20</td> </tr> <tr> <td>Absolute Eosinophils</td> <td>0.10 10*3/uL</td> <td> 0.00-0.50</td> </tr> <tr> <td>Absolute Lymphocytes</td> <td>1.67 10*3/uL</td> <td>0.80-3.30</td> </tr> < tr> <td>Absolute Monocytes</td> <td>0.44 10*3/uL</td> <td>0.30-1.00</td> </tr> <tr> <td>Absolute Neutrophils< /td> <td>3.87 10*3/uL</td> <td>1.90-7.00</td> </tr> <tr> <td>Basophils</td> <td>0 %</td> <td>0-2 </td> </tr> <tr> <td>Eosinophils</td> <td>2 &#37 ;</td> <td>0-4</td> </tr> <tr> <td>HCT</td> <td>38.8 %</td> <td>37.0-47.0</td> </tr> <tr> <td>HGB</td> <td>13.3 g/dL</td> <td>12.0-16.0</td> </tr> <tr> <td>Immature Granulocytes</td> <td> 0.2 %</td> <td>0.0-1.0</td> </tr> <tr> <td> Lymphocytes</td> <td>27 %</td> <td>20-46</td> </tr > <tr> <td>MCH</td> <td>28.1 pg</td> <td>27.0- 32.0</td> </tr> <tr> <td>MCHC</td> <td>34.3 g/dL </td> <td>32.0-36.0</td> </tr> <tr> <td>MCV</td > <td>81.9 fL</td> <td>82.0-99.0</td> </tr> <tr > <td>Monocytes</td> <td>7 %</td> <td>4-11</td> </tr> <tr> <td>MPV</td> <td>9.1 fL</td> <td>9.4-12.4</td> </tr> <tr> <td>Neutrophils</td> <td>63 %</td> <td>51-75</td> </tr> <tr> <td>Nucleated RBC Automated</td> <td>0.0 /100 WBC</td> <td / > </tr> <tr> <td>Platelet Count</td> <td>260 K/ uL</td> <td>150-400</td> </tr> <tr> <td>RBC</td > <td>4.74 10*6/uL</td> <td>4.00-5.20</td> </tr> <tr> <td>RDW</td> <td>12.7 %</td> <td>11.5-14.5 </td> </tr> <tr> <td>WBC</td> <td>6.1 K/uL</td> <td>4.8-10.8</td> </tr> <tr> < colspan="10"> Urinalysis with reflex microscopic - 08/29/17 07:21</th> </tr> <tr > <td>Appearance</td> <td>Sl Cloudy NA</td> <td /> </tr> <tr> <td>Bilirubin</td> <td>Negative NA</td > <td>Negative</td> </tr> <tr> <td>Blood</td> <td>Negative NA</td> <td>Negative</td> </tr> <tr > <td>Color</td> <td>Anju NA</td> <td /> </tr > <tr> <td>Glucose, Urine</td> <td>Negative </td> <td>Negative</td> </tr> <tr> <td>Ketones</td> <td>Negative </td> <td>Negative</td> </tr> <tr> <td>Leukocyte Esterase</td> <td>Pos 1+ NA</td> <td> Negative</td> </tr> <tr> <td>Nitrites</td> <td> Negative NA</td> <td>Negative</td> </tr> <tr> < td>pH</td> <td>5.0 NA</td> <td>5.0-8.0</td> </tr> <tr> <td>Protein</td> <td>Pos 1+ NA</td> <td> Negative</td> </tr> <tr> <td>Specific [place]</td> <td>1.030 NA</td> <td>1.003-1.030</td> </tr> <tr> <td>UA Collection type</td> <td>Catheter NA</td> <td / > </tr> <tr> <td>Urobilinogen</td> <td>4.0 mg/dL </td> <td><1.0</td> </tr> <tr> <th colspan= "10">Urine Microscopic - 08/29/17 07:21</th> </tr> <tr> < td>Bacteria</td> <td>Occasional NA</td> <td /> </tr> <tr> <td>Epithelial Cells</td> <td>0 /HPF</td> <td /> </tr> <tr> <td>Urine Mucus</td> <td> Present NA</td> <td /> </tr> <tr> <td>WBC, Urine </td> <td>5 /HPF</td> <td>0-4</td> </tr> <tr> <th colspan="10">Comprehensive Metabolic Panel (CMP) - 08/29/17 07:21</ th> </tr> <tr> <td>Albumin</td> <td>3.9 g/dL</td > <td>3.5-4.8</td> </tr> <tr> <td>Alkaline Phosphatase</td> <td>99 U/L</td> <td>26-104</td> </tr> <tr> <td>ALT (SGPT)</td> <td>110 U/L</td> <td >14-54</td> </tr> <tr> <td>Anion Gap</td> <td> 10 mEq/L</td> <td>3-20</td> </tr> <tr> <td>AST ( SGOT)</td> <td>70 U/L</td> <td>15-41</td> </tr> <tr> <td>Bilirubin Total</td> <td>1.7 mg/dL</td> <td> 0.2-1.2</td> </tr> <tr> <td>BUN</td> <td>11 mg/ dL</td> <td>4-20</td> </tr> <tr> <td>Calcium</td > <td>9.5 mg/dL</td> <td>8.6-10.0</td> </tr> <tr > <td>Chloride</td> <td>101 mEq/L</td> <td>99-109</td > </tr> <tr> <td>CO2</td> <td>26 mEq/L</td> <td>22-32</td> </tr> <tr> <td>Creatinine</td> <td>0.82 mg/dL</td> <td>0.44-1.03</td> </tr> <tr> <td>Globulin</td> <td>3.4 g/dL</td> <td>1.9-4.3</td> </tr> <tr> <td>Glucose</td> <td>125 mg/dL</td> <td>70-100</td> </tr> <tr> <td>Potassium</td> <td>3.4 mEq/L</td> <td>3.6-5.1</td> </tr> <tr> <td>Protein</td> <td>7.3 g/dL</td> <td>6.1-7.9</td> </tr> <tr> <td>Sodium</td> <td>137 mEq/L</td> <td>136-144</td> </tr> <tr> <th colspan="10"> Lipase - 08/29/17 07:21</th> </tr> <tr> <td>Lipase</td> <td>27 U/L</td> <td>8-48</td> </tr> <tr> <th colspan="10">eGFR - 08/29/17 07:21</th> </tr> <tr> <td>eGFR</td> <td>>60 mL/min</td> <td>>60</td> </tr> <tr> <th colspan="10">Glucose, CSF - 08/29/17 11:09</th> </tr> <tr> <td>Glucose, CSF</td> <td>62 mg/dL</ td> <td>40-70</td> </tr> <tr> <th colspan="10"> Protein, CSF - 08/29/17 11:09</th> </tr> <tr> <td>Protein , CSF</td> <td>20 mg/dL</td> <td>15-45</td> </tr> <tr> <th colspan="10">CSF Cell Count with Differential - 08/29/17 11 :09</th> </tr> <tr> <td>Appearance, CSF</td> <td >Clear NA</td> <td /> </tr> <tr> <td>Color, CSF< /td> <td>Colorless NA</td> <td /> </tr> <tr> <td>Color, CSF Post Centrifugation</td> <td>Colorless NA</td> <td /> </tr> <tr> <td>Volume, CSF</td> < td>4.2 mL</td> <td /> </tr> <tr> <td> Mononuclear Cells, CSF</td> <td>90 %</td> <td /> </ tr> <tr> <td>Polynuclear Cells, CSF</td> <td>10 %</ td> <td /> </tr> <tr> <td>RBC, CSF</td> <td>1 /mm3</td> <td /> </tr> <tr> <td>WBC, CSF </td> <td>1 /mm3</td> <td>0-10</td> </tr> <tr> <th colspan="10">COMPREHENSIVE METABOLIC PANEL - 12/11/17 13:33</th> </tr> <tr> <td>GLUCOSE</td> <td>75 mg/dL</td> <td>65-99</td> </tr> <tr> <td>UREA NITROGEN (BUN)< /td> <td>12 mg/dL</td> <td>7-25</td> </tr> <tr> <td>CREATININE</td> <td>0.84 mg/dL</td> <td>0.50- 1.10</td> </tr> <tr> <td>eGFR NON-AFR. CAMEROONIAN</td> <td>86 mL/min/1.73m2</td> <td>> OR=60</td> </tr> <tr> <td>eGFR </td> <td>100 mL/min/1.73m2</ td> <td>> OR=60</td> </tr> <tr> <td>BUN/ CREATININE RATIO</td> <td>NOT APPLICABLE (calc)</td> <td>6-22< /td> </tr> <tr> <td>SODIUM</td> <td>139 mmol/L</ td> <td>135-146</td> </tr> <tr> <td>POTASSIUM</ td> <td>4.3 mmol/L</td> <td>3.5-5.3</td> </tr> < tr> <td>CHLORIDE</td> <td>101 mmol/L</td> <td>98-110< /td> </tr> <tr> <td>CARBON DIOXIDE</td> <td>30 mmol/L</td> <td>20-31</td> </tr> <tr> <td> CALCIUM</td> <td>9.7 mg/dL</td> <td>8.6-10.2</td> </tr > <tr> <td>PROTEIN, TOTAL</td> <td>7.0 g/dL</td> <td>6.1-8.1</td> </tr> <tr> <td>ALBUMIN</td> <td>4.4 g/dL</td> <td>3.6-5.1</td> </tr> <tr> <td>GLOBULIN</td> <td>2.6 g/dL (calc)</td> <td>1.9-3.7</td> </tr> <tr> <td>ALBUMIN/GLOBULIN RATIO</td> <td> 1.7 (calc)</td> <td>1.0-2.5</td> </tr> <tr> <td> BILIRUBIN, TOTAL</td> <td>0.8 mg/dL</td> <td>0.2-1.2</td> </tr> <tr> <td>ALKALINE PHOSPHATASE</td> <td>88 U/L </td> <td>33-115</td> </tr> <tr> <td>AST</td> <td>14 U/L</td> <td>10-30</td> </tr> <tr> <td>ALT</td> <td>14 U/L</td> <td>6-29</td> </tr> <tr> <th colspan="10">VITAMIN D, 25-HYDROXY, LC/MS/MS - 12/11/17 13:33</th> </tr> <tr> <td>VITAMIN D,25-OH,TOTAL,IA</td> <td>19 ng/mL</td> <td>30-100</td> </tr> <tr> <th colspan="10">CBC (H/H, RBC, INDICES, WBC, PLT) - 12/11/17 13:33</th> </tr> <tr> <td>WHITE BLOOD CELL COUNT</td> <td> 8.5 Thousand/uL</td> <td>3.8-10.8</td> </tr> <tr> <td>RED BLOOD CELL COUNT</td> <td>4.62 Million/uL</td> <td> 3.80-5.10</td> </tr> <tr> <td>HEMOGLOBIN</td> < td>12.9 g/dL</td> <td>11.7-15.5</td> </tr> <tr> <td>HEMATOCRIT</td> <td>38.2 %</td> <td>35.0-45.0</td> </tr> <tr> <td>MCV</td> <td>82.7 fL</td> <td>80.0-100.0</td> </tr> <tr> <td>MCH</td> <td> 27.9 pg</td> <td>27.0-33.0</td> </tr> <tr> <td> MCHC</td> <td>33.8 g/dL</td> <td>32.0-36.0</td> </tr> <tr> <td>RDW</td> <td>13.4 %</td> <td>11.0 -15.0</td> </tr> <tr> <td>PLATELET COUNT</td> < td>313 Thousand/uL</td> <td>140-400</td> </tr> <tr> <td>MPV</td> <td>11.4 fL</td> <td>7.5-12.5</td> </ tr> <tr> <th colspan="10">TSH W/REFLEX TO FT4 - 12/11/17 13:33</ th> </tr> <tr> <td>TSH W/REFLEX TO FT4</td> <td> 1.78 mIU/L</td> <td>NRG</td> </tr> <tr> <th colspan="10">LIPID PANEL - 12/11/17 13:33</th> </tr> <tr> <td>CHOLESTEROL, TOTAL</td> <td>227 mg/dL</td> <td><200</ td> </tr> <tr> <td>HDL CHOLESTEROL</td> <td>28 mg/dL</td> <td>>50</td> </tr> <tr> <td> TRIGLYCERIDES</td> <td>959 mg/dL</td> <td><150</td> </tr> <tr> <td>LDL-CHOLESTEROL</td> <td> mg/dL (calc)</ td> <td>NRG</td> </tr> <tr> <td>CHOL/HDLC RATIO< /td> <td>8.1 (calc)</td> <td><5.0</td> </tr> <tr> <td>NON HDL CHOLESTEROL</td> <td>199 mg/dL (calc)</td> <td><130</td> </tr> </tbody> </table> </text> <entry > <organizer moodCode="EVN" classCode="BATTERY"> <templateId root= "2.16.840.1.550111.10.20.22.4.1" /> <id nullFlavor="NA" /> <code codeSystem="local" code="CBCD" displayName="CBC W/DIFF" /> <statusCode code ="completed" /> <component> <observation moodCode="EVN" classCode= "OBS"> <templateId root="840.1.486559.10..4.2" /> < id nullFlavor="NA" /> <code codeSystem="local" code="EO#" displayName= "EOSINOPHIL #" /> <statusCode code="completed" /> < effectiveTime value="" /> <value unit="k/cumm" xsi:type="PQ " value="0.2" /> <referenceRange> <observationRange> <text>0.1-0.5</text> </observationRange> </ referenceRange> </observation> </component> <component> <observation moodCode="EVN" classCode="OBS"> <templateId root= "11.03.840.1.680511.07.07.22.4.2" /> <id nullFlavor="NA" /> < code codeSystem="local" code="EO%" displayName="EOSINOPHIL %" /> <statusCode code="completed" /> <effectiveTime value="" /> <value unit="%" xsi:type="PQ" value="2" /> < referenceRange> <observationRange> <text>2-4</text> </observationRange> </referenceRange> </observation> </component> <component> <observation moodCode="EVN" classCode= "OBS"> <templateId root="11.03.840.1.492904.10.22.4.2" /> < id nullFlavor="NA" /> <code codeSystem="local" code="GR#" displayName= "GRANULOCYTE #" /> <statusCode code="completed" /> < effectiveTime value="259929636931" /> <value unit="k/cumm" xsi:type="PQ " value="5.0" /> <referenceRange> <observationRange> <text>2.0-9.0</text> </observationRange> </ referenceRange> </observation> </component> <component> <observation moodCode="EVN" classCode="OBS"> <templateId root= "11.03.840.1.043166.10.22.4.2" /> <id nullFlavor="NA" /> < code codeSystem="local" code="GR%" displayName="GRANULOCYTE %" /> <statusCode code="completed" /> <effectiveTime value="694464919692 " /> <value unit="%" xsi:type="PQ" value="58" /> < referenceRange> <observationRange> <text>50-75</text> </observationRange> </referenceRange> </observation> </component> <component> <observation moodCode="EVN" classCode= "OBS"> <templateId root="11.03.840.1.325331.07.07.22.4.2" /> < id nullFlavor="NA" /> <code codeSystem="local" code="LY#" displayName= "LYMPHOCYTE #" /> <statusCode code="completed" /> < effectiveTime value="472086452007" /> <value unit="k/cumm" xsi:type="PQ " value="2.9" /> <referenceRange> <observationRange> <text>1.0-4.0</text> </observationRange> </ referenceRange> </observation> </component> <component> <observation moodCode="EVN" classCode="OBS"> <templateId root= "11.03.840.1.239606.1022.4.2" /> <id nullFlavor="NA" /> < code codeSystem="local" code="LY%" displayName="LYMPHOCYTE %" /> <statusCode code="completed" /> <effectiveTime value="645600228343" /> <value unit="%" xsi:type="PQ" value="34" /> < interpretationCode codeSystem="local" code="*" /> <referenceRange> <observationRange> <text>20-30</text> </ observationRange> </referenceRange> </observation> </ component> <component> <observation moodCode="EVN" classCode="OBS"> <templateId root="216.840.1.364186.10.20.22.4.2" /> <id nullFlavor="NA" /> <code codeSystem="local" code="MCH" displayName= "MEAN CELL HGB" /> <statusCode code="completed" /> < effectiveTime value="082379740584" /> <value unit="pg" xsi:type="PQ" value="28.0" /> <referenceRange> <observationRange> <text>27.0-33.0</text> </observationRange> </ referenceRange> </observation> </component> <component> <observation moodCode="EVN" classCode="OBS"> <templateId root= "16.840.1.230143.10.20.22.4.2" /> <id nullFlavor="NA" /> < code codeSystem="local" code="MCHC" displayName="MEAN CELL HGB CONCENTRATION" / > <statusCode code="completed" /> <effectiveTime value= "913856690862" /> <value unit="g/dL" xsi:type="PQ" value="34.3" /> <referenceRange> <observationRange> <text>32.0- 37.0</text> </observationRange> </referenceRange> </ observation> </component> <component> <observation moodCode= "EVN" classCode="OBS"> <templateId root="11.03.840.1.982582.07.07.22.4.2 " /> <id nullFlavor="NA" /> <code codeSystem="local" code="MCV " displayName="MEAN CELL VOLUME" /> <statusCode code="completed" /> <effectiveTime value="495443062961" /> <value unit="fl" xsi:type ="PQ" value="81.5" /> <referenceRange> <observationRange> <text>80.0-100.0</text> </observationRange> </ referenceRange> </observation> </component> <component> <observation moodCode="EVN" classCode="OBS"> <templateId root= "11.03.840.1.966600.07.07.22.4.2" /> <id nullFlavor="NA" /> < code codeSystem="local" code="MO#" displayName="MONOCYTE #" /> < statusCode code="completed" /> <effectiveTime value="414929933808" /> <value unit="k/cumm" xsi:type="PQ" value="0.6" /> < referenceRange> <observationRange> <text>0.1-1.0</text> </observationRange> </referenceRange> </observation > </component> <component> <observation moodCode="EVN" classCode="OBS"> <templateId root="11.03.840.1.958146.07.07.22.4.2" /> <id nullFlavor="NA" /> <code codeSystem="local" code="MO% " displayName="MONOCYTE %" /> <statusCode code="completed" /> <effectiveTime value="014157371534" /> <value unit="%" xsi: type="PQ" value="6" /> <referenceRange> <observationRange> <text>4-6</text> </observationRange> </ referenceRange> </observation> </component> <component> <observation moodCode="EVN" classCode="OBS"> <templateId root= "216.840.1.129078.10.22.4.2" /> <id nullFlavor="NA" /> < code codeSystem="local" code="RBC" displayName="RED BLOOD CELL" /> < statusCode code="completed" /> <effectiveTime value="144929591644" /> <value unit="m/cumm" xsi:type="PQ" value="4.65" /> < referenceRange> <observationRange> <text>4.00-6.00</text > </observationRange> </referenceRange> </observation > </component> <component> <observation moodCode="EVN" classCode="OBS"> <templateId root="216.840.1.867415.07.07.22.4.2" /> <id nullFlavor="NA" /> <code codeSystem="local" code="RDW" displayName="RED CELL DISTRIBUTION WIDTH" /> <statusCode code= "completed" /> <effectiveTime value="421763189126" /> <value unit="%" xsi:type="PQ" value="13.1" /> <referenceRange> <observationRange> <text>11.0-15.6</text> </ observationRange> </referenceRange> </observation> </ component> <component> <observation moodCode="EVN" classCode="OBS"> <templateId root="216.840.1.688850.10..4.2" /> <id nullFlavor="NA" /> <code codeSystem="local" code="WBC" displayName= "WHITE BLOOD CELL" /> <statusCode code="completed" /> < effectiveTime value="674956595372" /> <value unit="k/cumm" xsi:type="PQ " value="8.6" /> <referenceRange> <observationRange> <text>5.0-10.0</text> </observationRange> </ referenceRange> </observation> </component> <component> <observation moodCode="EVN" classCode="OBS"> <templateId root= "216.840.1.917534.10...4.2" /> <id nullFlavor="NA" /> < code codeSystem="local" code="HGBT" displayName="HEMOGLOBIN" /> < statusCode code="completed" /> <effectiveTime value="339287829947" /> <value unit="gm/dL" xsi:type="PQ" value="13.0" /> < referenceRange> <observationRange> <text>12.0-16.0</text > </observationRange> </referenceRange> </observation > </component> <component> <observation moodCode="EVN" classCode="OBS"> <templateId root="11.03.840.1.051701...4.2" /> <id nullFlavor="NA" /> <code codeSystem="local" code="HCTT" displayName="HEMATOCRIT" /> <statusCode code="completed" /> < effectiveTime value="298326127365" /> <value unit="%" xsi:type="PQ " value="37.9" /> <referenceRange> <observationRange> <text>37.0-47.0</text> </observationRange> </ referenceRange> </observation> </component> <component> <observation moodCode="EVN" classCode="OBS"> <templateId root= "11.03.840.1.461054.10.20.22.4.2" /> <id nullFlavor="NA" /> < code codeSystem="local" code="PLT" displayName="PLATELET COUNT" /> < statusCode code="completed" /> <effectiveTime value="760608170639" /> <value unit="k/cumm" xsi:type="PQ" value="252" /> < referenceRange> <observationRange> <text>150-450</text> </observationRange> </referenceRange> </observation > </component> </organizer> </entry> <entry> <organizer moodCode= "EVN" classCode="BATTERY"> <templateId root="216.840.1.368252.10...4.1 " /> <id nullFlavor="NA" /> <code codeSystem="local" code="UA" displayName="URINALYSIS, ROUTINE" /> <statusCode code="completed" /> < component> <observation moodCode="EVN" classCode="OBS"> < templateId root="216.840.1.149491.10...4.2" /> <id nullFlavor="NA " /> <code codeSystem="local" code="LEUESU" displayName="UA LEUKOCYTE ESTERASE DIPSTICK" /> <statusCode code="completed" /> < effectiveTime value="191756607623" /> <value unit="" xsi:type="PQ" value="NEGATIVE" /> <referenceRange> <observationRange> <text>NEGATIVE</text> </observationRange> </ referenceRange> </observation> </component> <component> <observation moodCode="EVN" classCode="OBS"> <templateId root= "216.840.1.323978.10...4.2" /> <id nullFlavor="NA" /> < code codeSystem="local" code="NITRIU" displayName="UA NITRITE DIPSTICK" /> <statusCode code="completed" /> <effectiveTime value="771781688932 " /> <value unit="" xsi:type="PQ" value="NEGATIVE" /> < referenceRange> <observationRange> <text>NEGATIVE</text > </observationRange> </referenceRange> </observation > </component> <component> <observation moodCode="EVN" classCode="OBS"> <templateId root="11.03.840.1.136607.10.4.2" /> <id nullFlavor="NA" /> <code codeSystem="local" code="PROTEIU " displayName="UA PROTEIN DIPSTICK" /> <statusCode code="completed" /> <effectiveTime value="298386059108" /> <value unit="" xsi: type="PQ" value="NEGATIVE" /> <referenceRange> < observationRange> <text>NEGATIVE</text> </ observationRange> </referenceRange> </observation> </ component> <component> <observation moodCode="EVN" classCode="OBS"> <templateId root="840.1.004286.07.07.22.4.2" /> <id nullFlavor="NA" /> <code codeSystem="local" code="DGLUU" displayName= "UA GLUCOSE DIPSTICK" /> <statusCode code="completed" /> < effectiveTime value="657306458129" /> <value unit="" xsi:type="PQ" value="NEGATIVE" /> <referenceRange> <observationRange> <text>NEGATIVE</text> </observationRange> </ referenceRange> </observation> </component> <component> <observation moodCode="EVN" classCode="OBS"> <templateId root= "840.1.354022.10..4.2" /> <id nullFlavor="NA" /> < code codeSystem="local" code="KETONU" displayName="UA KETONE DIPSTICK" /> <statusCode code="completed" /> <effectiveTime value="998903152912 " /> <value unit="" xsi:type="PQ" value="NEGATIVE" /> < referenceRange> <observationRange> <text>NEGATIVE</text > </observationRange> </referenceRange> </observation > </component> <component> <observation moodCode="EVN" classCode="OBS"> <templateId root="11.03.840.1.824408.07.07.22.4.2" /> <id nullFlavor="NA" /> <code codeSystem="local" code="UROBILU " displayName="UA UROBILINOGEN DIPSTICK" /> <statusCode code="completed " /> <effectiveTime value="956208136857" /> <value unit="" xsi :type="PQ" value="NORMAL" /> <referenceRange> < observationRange> <text>NORMAL</text> </observationRange > </referenceRange> </observation> </component> < component> <observation moodCode="EVN" classCode="OBS"> < templateId root="11.03.840.1.337737.07.07.22.4.2" /> <id nullFlavor="NA " /> <code codeSystem="local" code="BILU" displayName="UA BILIRUBIN DIPSTICK" /> <statusCode code="completed" /> <effectiveTime value="301056053168" /> <value unit="" xsi:type="PQ" value="NEGATIVE" / > <referenceRange> <observationRange> <text> NEGATIVE</text> </observationRange> </referenceRange> </observation> </component> <component> <observation moodCode ="EVN" classCode="OBS"> <templateId root= "11.03.840.1.905469.07.07.22.4.2" /> <id nullFlavor="NA" /> < code codeSystem="local" code="[place]" displayName="UA BLOOD DIPSTICK" /> < statusCode code="completed" /> <effectiveTime value="864513612821" /> <value unit="" xsi:type="PQ" value="NEGATIVE" /> < referenceRange> <observationRange> <text>NEGATIVE</text > </observationRange> </referenceRange> </observation > </component> <component> <observation moodCode="EVN" classCode="OBS"> <templateId root="2.16.840.1.632425.10..22.4.2" /> <id nullFlavor="NA" /> <code codeSystem="local" code="SPGRU" displayName="UA SPECIFIC GRAVITY" /> <statusCode code="completed" /> <effectiveTime value="305862097652" /> <value unit="" xsi:type= "PQ" value="1.020" /> <referenceRange> <observationRange> <text>1.015-1.025</text> </observationRange> </ referenceRange> </observation> </component> <component> <observation moodCode="EVN" classCode="OBS"> <templateId root= "2.16.840.1.812720.10..22.4.2" /> <id nullFlavor="NA" /> < code codeSystem="local" code="JAMEEL" displayName="UR PH" /> <statusCode code="completed" /> <effectiveTime value="016965521803" /> < value unit="" xsi:type="PQ" value="5.0" /> <referenceRange> <observationRange> <text>5.0-7.0</text> </ observationRange> </referenceRange> </observation> </ component> </organizer> </entry> <entry> <organizer moodCode="EVN" classCode="BATTERY"> <templateId root="840.1.775386.07.07.22.4.1" /> <id nullFlavor="NA" /> <code codeSystem="local" code="METABC" displayName="METABOLIC PANEL, COMPREHN" /> <statusCode code="completed" /> <component> <observation moodCode="EVN" classCode="OBS"> < templateId root="840.1.495973.07.07.22.4.2" /> <id nullFlavor="NA " /> <code codeSystem="local" code="K" displayName="POTASSIUM" /> <statusCode code="completed" /> <effectiveTime value="194264772429 " /> <value unit="mmol/L" xsi:type="PQ" value="3.7" /> < referenceRange> <observationRange> <text>3.5-5.3</text> </observationRange> </referenceRange> </observation > </component> <component> <observation moodCode="EVN" classCode="OBS"> <templateId root="840.1.824134.07.07.22.4.2" /> <id nullFlavor="NA" /> <code codeSystem="local" code="eGFR" displayName="EST GFR (MDRD)" /> <statusCode code="completed" /> <effectiveTime value="181025690069" /> <value unit="mL/min" xsi:type ="PQ" value="> 60" /> <referenceRange> <observationRange > <text>> 59</text> </observationRange> </ referenceRange> </observation> </component> <component> <observation moodCode="EVN" classCode="OBS"> <templateId root= "11.03.840.1.878974.07.07.22.4.2" /> <id nullFlavor="NA" /> < code codeSystem="local" code="GAP" displayName="ANION GAP" /> < statusCode code="completed" /> <effectiveTime value="581409751945" /> <value unit="mmol/L" xsi:type="PQ" value="12" /> < referenceRange> <observationRange> <text>5-15</text> </observationRange> </referenceRange> </observation> </component> <component> <observation moodCode="EVN" classCode= "OBS"> <templateId root="2.16.840.1.393843.10...4.2" /> < id nullFlavor="NA" /> <code codeSystem="local" code="eCrCl" displayName ="EST CrCl (CG)" /> <statusCode code="completed" /> < effectiveTime value="286133526116" /> <value unit="mL/min" xsi:type="PQ " value="> 60" /> <referenceRange> <observationRange> <text>> 59</text> </observationRange> </ referenceRange> </observation> </component> <component> <observation moodCode="EVN" classCode="OBS"> <templateId root= "2.16.840.1.086556.10...4.2" /> <id nullFlavor="NA" /> < code codeSystem="local" code="GLU" displayName="GLUCOSE" /> < statusCode code="completed" /> <effectiveTime value="784693316949" /> <value unit="mg/dL" xsi:type="PQ" value="146" /> < interpretationCode codeSystem="local" code="*" /> <referenceRange> <observationRange> <text>70-99</text> </ observationRange> </referenceRange> </observation> </ component> <component> <observation moodCode="EVN" classCode="OBS"> <templateId root="216.840.1.216067.10..22.4.2" /> <id nullFlavor="NA" /> <code codeSystem="local" code="CA" displayName= "CALCIUM" /> <statusCode code="completed" /> <effectiveTime value="131011481135" /> <value unit="mg/dL" xsi:type="PQ" value="8.6" / > <referenceRange> <observationRange> <text>8.5 -10.1</text> </observationRange> </referenceRange> </ observation> </component> <component> <observation moodCode= "EVN" classCode="OBS"> <templateId root="16.840.1.901700...4.2 " /> <id nullFlavor="NA" /> <code codeSystem="local" code="BUN " displayName="BLOOD UREA NITROGEN" /> <statusCode code="completed" /> <effectiveTime value="727856982501" /> <value unit="mg/dL" xsi:type="PQ" value="7" /> <referenceRange> < observationRange> <text>7-20</text> </observationRange> </referenceRange> </observation> </component> < component> <observation moodCode="EVN" classCode="OBS"> < templateId root="11.03.840.1.096251.10..22.4.2" /> <id nullFlavor="NA " /> <code codeSystem="local" code="CREAT" displayName="CREATININE" /> <statusCode code="completed" /> <effectiveTime value= "974721147338" /> <value unit="mg/dL" xsi:type="PQ" value="1.0" /> <referenceRange> <observationRange> <text>0.6-1.0< /text> </observationRange> </referenceRange> </ observation> </component> <component> <observation moodCode= "EVN" classCode="OBS"> <templateId root="216.840.1.416869.10..22.4.2 " /> <id nullFlavor="NA" /> <code codeSystem="local" code="NA " displayName="SODIUM" /> <statusCode code="completed" /> < effectiveTime value="699475299645" /> <value unit="mmol/L" xsi:type="PQ " value="142" /> <referenceRange> <observationRange> <text>135-148</text> </observationRange> </ referenceRange> </observation> </component> <component> <observation moodCode="EVN" classCode="OBS"> <templateId root= "11.03.840.1.651843.07.07.22.4.2" /> <id nullFlavor="NA" /> < code codeSystem="local" code="CL" displayName="CHLORIDE" /> < statusCode code="completed" /> <effectiveTime value="710266327452" /> <value unit="mmol/L" xsi:type="PQ" value="104" /> < referenceRange> <observationRange> <text>98-110</text> </observationRange> </referenceRange> </observation> </component> <component> <observation moodCode="EVN" classCode ="OBS"> <templateId root="11.03.840.1.426070...4.2" /> < id nullFlavor="NA" /> <code codeSystem="local" code="AST" displayName= "AST/SGOT" /> <statusCode code="completed" /> <effectiveTime value="970108948263" /> <value unit="Units/L" xsi:type="PQ" value="30" /> <referenceRange> <observationRange> <text>10 -37</text> </observationRange> </referenceRange> </ observation> </component> <component> <observation moodCode= "EVN" classCode="OBS"> <templateId root="16.840.1.227042.10..22.4.2 " /> <id nullFlavor="NA" /> <code codeSystem="local" code="ALT " displayName="ALT/SGPT" /> <statusCode code="completed" /> < effectiveTime value="376277962644" /> <value unit="Units/L" xsi:type= "PQ" value="53" /> <referenceRange> <observationRange> <text>< 66</text> </observationRange> </ referenceRange> </observation> </component> <component> <observation moodCode="EVN" classCode="OBS"> <templateId root= "840.1.277713.10..4.2" /> <id nullFlavor="NA" /> < code codeSystem="local" code="CO2" displayName="CARBON DIOXIDE" /> < statusCode code="completed" /> <effectiveTime value="290962745332" /> <value unit="mmol/L" xsi:type="PQ" value="26" /> < referenceRange> <observationRange> <text>21-32</text> </observationRange> </referenceRange> </observation> </component> <component> <observation moodCode="EVN" classCode= "OBS"> <templateId root="11.03.840.1.956767.10.2022.4.2" /> < id nullFlavor="NA" /> <code codeSystem="local" code="TP" displayName= "TOTAL PROTEIN" /> <statusCode code="completed" /> < effectiveTime value="099621047568" /> <value unit="gm/dL" xsi:type="PQ " value="6.7" /> <referenceRange> <observationRange> <text>6.4-8.2</text> </observationRange> </ referenceRange> </observation> </component> <component> <observation moodCode="EVN" classCode="OBS"> <templateId root= "16.840.1.955064.10.20.22.4.2" /> <id nullFlavor="NA" /> < code codeSystem="local" code="ALB" displayName="ALBUMIN" /> < statusCode code="completed" /> <effectiveTime value="802834848498" /> <value unit="gm/dL" xsi:type="PQ" value="3.3" /> < interpretationCode codeSystem="local" code="*" /> <referenceRange> <observationRange> <text>3.4-5.0</text> </ observationRange> </referenceRange> </observation> </ component> <component> <observation moodCode="EVN" classCode="OBS"> <templateId root="16.840.1.050717.10.20.22.4.2" /> <id nullFlavor="NA" /> <code codeSystem="local" code="BILTOT" displayName= "BILI TOTAL" /> <statusCode code="completed" /> < effectiveTime value="864369277338" /> <value unit="mg/dL" xsi:type="PQ " value="0.7" /> <referenceRange> <observationRange> <text>0.0-1.0</text> </observationRange> </ referenceRange> </observation> </component> <component> <observation moodCode="EVN" classCode="OBS"> <templateId root= "2.16.840.1.779046.10..22.4.2" /> <id nullFlavor="NA" /> < code codeSystem="local" code="ALKP" displayName="ALKALINE PHOSPHATASE TOTAL" /> <statusCode code="completed" /> <effectiveTime value= "424806315399" /> <value unit="IU/L" xsi:type="PQ" value="96" /> <referenceRange> <observationRange> <text>45-117</ text> </observationRange> </referenceRange> </ observation> </component> </organizer> </entry> <entry> <organizer moodCode="EVN" classCode="BATTERY"> <templateId root= "216.840.1.411608.10...4.1" /> <id nullFlavor="NA" /> <code codeSystem="local" code="LIP" displayName="LIPASE" /> <statusCode code= "completed" /> <component> <observation moodCode="EVN" classCode= "OBS"> <templateId root="216.840.1.412039.10..22.4.2" /> < id nullFlavor="NA" /> <code codeSystem="local" code="LIP" displayName= "LIPASE" /> <statusCode code="completed" /> <effectiveTime value="946287325466" /> <value unit="Units/L" xsi:type="PQ" value="107 " /> <referenceRange> <observationRange> <text> 73-393</text> </observationRange> </referenceRange> < /observation> </component> </organizer> </entry> <entry> < organizer moodCode="EVN" classCode="BATTERY"> <templateId root= "216.840.1.629958.10..22.4.1" /> <id nullFlavor="NA" /> <code codeSystem="local" code="CRP" displayName="C REACTIVE PROTEIN" /> < statusCode code="completed" /> <component> <observation moodCode= "EVN" classCode="OBS"> <templateId root="216.840.1.618640.10..22.4.2 " /> <id nullFlavor="NA" /> <code codeSystem="local" code="CRP " displayName="C REACTIVE PROTEIN" /> <statusCode code="completed" /> <effectiveTime value="594400260948" /> <value unit="mg/L" xsi: type="PQ" value="2.8" /> <referenceRange> <observationRange > <text>< 8.0</text> </observationRange> </ referenceRange> </observation> </component> </organizer> </entry > <entry> <organizer moodCode="EVN" classCode="BATTERY"> <templateId root="16.840.1.945202.10..22.4.1" /> <id nullFlavor="NA" /> <code codeSystem="local" code="AROLDO" displayName="CAMPYLOBACTER ANTIGEN" /> < statusCode code="completed" /> <component> <observation moodCode= "EVN" classCode="OBS"> <templateId root="16.840.1.339019.10..22.4.2 " /> <id nullFlavor="NA" /> <code codeSystem="local" code="MB " displayName="Microbiology" /> <statusCode code="completed" /> <effectiveTime value="704410021237" /> <value xsi:type="ST" value="< pre><b>CAMPYLOBACTER ANTIGEN - STOOL CULTURE - E. COLI SHIGA-LIKE TOXIN</b> See BelowCAMPYLOBACTER ANTIGEN(F) Yovani Date/Time: 08/02/2014 10:50 Clemencia Date/Time: 08/04/2014 09:55SOURCE: STOOLSPEC DESC: CAMPYLOBACTER ANTIGENNEGATIVESAINT ALPHONSUS EAGLE [id number] [place], [place] [id number] BelowSTOOL CULTURE(F) Yovani Date/Time: 08/02/2014 10: 50 Clemencia Date/Time: 08/04/2014 09:55SOURCE: STOOLSPEC DESC: NO BURKE OR SHIGNEGATIVE FOR SALMONELLA AND SHIGELLANO E. COLI 0157NO E. COLI 0157:H7 ISOLATEDSAINT ALPHONSUS EAGLE [phone] [place], [place] [address]Qkb BelowE. COLI SHIGA-LIKE TOXIN(F) Yovani Date/Time: 08/02/2014 10: 50 Clemencia Date/Time: 08/04/2014 09:55SOURCE: STOOLSPEC DESC: SHIGA-TOXIN 1NEGATIVESHIGA-TOXIN 2NEGATIVESAINT ALPHONSUS EAGLE [id number] [place] [address]</pre>" /> <referenceRange> <observationRange> <text /> </observationRange> </referenceRange> </observation> </component> </ organizer> </entry> <entry> <organizer moodCode="EVN" classCode="BATTERY"> <templateId root="[id number]" /> <id nullFlavor= "NA" /> <code codeSystem="local" code="STWBC" displayName="STOOL LEUKOCYTES " /> <statusCode code="completed" /> <component> <observation moodCode="EVN" classCode="OBS"> <templateId root= "2.16.840.1.657100.10..22.4.2" /> <id nullFlavor="NA" /> < code codeSystem="local" code="MB" displayName="Microbiology" /> < statusCode code="completed" /> <effectiveTime value="[id number]" /> <value xsi:type="ST" value="<pre><b>STOOL LEUKOCYTES</b> See BelowSTOOL LEUKOCYTES(F) Yovani Date/Time: 08/02/2014 10:50 Clemencia Date/Time: 08/02/2014 21:05SOURCE: STOOLSPEC DESC: LIQUIDSTWBC RESULT (Abnormal)MANY NEUTROPHILS SEEN (Abnormal)[facility] - [phone] [place] [address]</pre>" /> <referenceRange> <observationRange> <text /> </observationRange > </referenceRange> </observation> </component> </ organizer> </entry> <entry> <organizer moodCode="EVN" classCode="BATTERY"> <templateId root="2.16.840.1.231378.10.20.22.4.1" /> <id nullFlavor= "NA" /> <code codeSystem="local" code="CDTOX" displayName="CLOSTRIDIUM DIFFICILE DNA" /> <statusCode code="completed" /> <component> < observation moodCode="EVN" classCode="OBS"> <templateId root= "2.16.840.1.751319.10.20.22.4.2" /> <id nullFlavor="NA" /> < code codeSystem="local" code="MB" displayName="Microbiology" /> < statusCode code="completed" /> <effectiveTime value="[id number]" /> <value xsi:type="ST" value="<pre><b>CLOSTRIDIUM DIFFICILE DNA</b> See BelowCLOSTRIDIUM DIFFICILE DNA(F) Yovani Date/Time: 08/02/2014 10:50 Clemencia Date/Time: 08/03/2014 08:07SOURCE: STOOLSPEC DESC: LIQUIDRESULT CALLED TO JACQUELINE BY BRODY AT 0807, 08/03/14.C.DIFFICILE TOXIN ( Abnormal)POSITIVE FOR CLOSTRIDIUM DIFFICILE TOXIN B GENE BY PCR (Abnormal) [id number] PRESUMPTIVE NEGATIVECALL POSITIVES, RCT T WQA (Abnormal)CONTACT PRECAUTIONS SHOULD BE IMPLEMENTED (Abnormal)[facility] - [phone] [place] [address]</pre>" /> <referenceRange> < observationRange> <text /> </observationRange> </referenceRange> </observation> </component> </organizer> </ entry> <entry> <organizer moodCode="EVN" classCode="BATTERY"> < templateId root="16.840.1.282736.10..22.4.1" /> <id nullFlavor="NA" /> <code codeSystem="local" code="TSH" displayName="THYROID STIM HORMONE (TSH )" /> <statusCode code="completed" /> <component> <observation moodCode="EVN" classCode="OBS"> <templateId root= "11.03.840.1.432606.10...4.2" /> <id nullFlavor="NA" /> < code codeSystem="local" code="TSH" displayName="THYROID STIM HORMONE (TSH)" /> <statusCode code="completed" /> <effectiveTime value= "809692200337" /> <value unit="uIU/mL" xsi:type="PQ" value="1.56" /> <referenceRange> <observationRange> <text>0.34- 4.82</text> </observationRange> </referenceRange> </ observation> </component> </organizer> </entry> <entry> <organizer moodCode="EVN" classCode="BATTERY"> <templateId root= "11.03.840.1.063506.10..22.4.1" /> <id nullFlavor="NA" /> <code codeSystem="local" code="SED" displayName="SED RATE" /> <statusCode code= "completed" /> <component> <observation moodCode="EVN" classCode= "OBS"> <templateId root="16.840.1.938437.10.4.2" /> < id nullFlavor="NA" /> <code codeSystem="local" code="SED" displayName= "SED RATE" /> <statusCode code="completed" /> <effectiveTime value="016487961082" /> <value unit="mm/hr" xsi:type="PQ" value="11" / > <referenceRange> <observationRange> <text>0- 15</text> </observationRange> </referenceRange> </ observation> </component> </organizer> </entry> <entry> <organizer moodCode="EVN" classCode="BATTERY"> <templateId root= "216.840.1.291348.10.4.1" /> <id nullFlavor="NA" /> <code codeSystem="local" code="CBCD" displayName="CBC W/DIFF" /> <statusCode code ="completed" /> <component> <observation moodCode="EVN" classCode= "OBS"> <templateId root="216.840.1.666479...4.2" /> < id nullFlavor="NA" /> <code codeSystem="local" code="CBCCOM" displayName="COMMENT" /> <statusCode code="completed" /> < effectiveTime value="528971651767" /> <value unit="" xsi:type="PQ" value="REVIEWED" /> <referenceRange> <observationRange> <text /> </observationRange> </referenceRange> </observation> </component> <component> <observation moodCode="EVN" classCode="OBS"> <templateId root= "216.840.1.695726.07.07.224.2" /> <id nullFlavor="NA" /> < code codeSystem="local" code="GR#" displayName="GRANULOCYTE #" /> < statusCode code="completed" /> <effectiveTime value="668963445873" /> <value unit="k/cumm" xsi:type="PQ" value="8.8" /> < referenceRange> <observationRange> <text>2.0-9.0</text> </observationRange> </referenceRange> </observation > </component> <component> <observation moodCode="EVN" classCode="OBS"> <templateId root="16.840.1.437450.10.22.4.2" /> <id nullFlavor="NA" /> <code codeSystem="local" code="GR% " displayName="GRANULOCYTE %" /> <statusCode code="completed" /> <effectiveTime value="012976367886" /> <value unit="%" xsi: type="PQ" value="77" /> <interpretationCode codeSystem="local" code="* " /> <referenceRange> <observationRange> <text> 50-75</text> </observationRange> </referenceRange> </ observation> </component> <component> <observation moodCode= "EVN" classCode="OBS"> <templateId root="16.840.1.435875.10..4.2 " /> <id nullFlavor="NA" /> <code codeSystem="local" code="LY# " displayName="LYMPHOCYTE #" /> <statusCode code="completed" /> <effectiveTime value="872623486923" /> <value unit="k/cumm" xsi:type ="PQ" value="1.9" /> <referenceRange> <observationRange> <text>1.0-4.0</text> </observationRange> </ referenceRange> </observation> </component> <component> <observation moodCode="EVN" classCode="OBS"> <templateId root= "11.03.840.1.108024.10..4.2" /> <id nullFlavor="NA" /> < code codeSystem="local" code="LY%" displayName="LYMPHOCYTE %" /> <statusCode code="completed" /> <effectiveTime value="" /> <value unit="%" xsi:type="PQ" value="16" /> < interpretationCode codeSystem="local" code="*" /> <referenceRange> <observationRange> <text>20-30</text> </ observationRange> </referenceRange> </observation> </ component> <component> <observation moodCode="EVN" classCode="OBS"> <templateId root="11.03.840.1.804181.07.07.22.4.2" /> <id nullFlavor="NA" /> <code codeSystem="local" code="MCH" displayName= "MEAN CELL HGB" /> <statusCode code="completed" /> < effectiveTime value="" /> <value unit="pg" xsi:type="PQ" value="27.1" /> <referenceRange> <observationRange> <text>27.0-33.0</text> </observationRange> </ referenceRange> </observation> </component> <component> <observation moodCode="EVN" classCode="OBS"> <templateId root= "11.03.840.1.532783.10.22.4.2" /> <id nullFlavor="NA" /> < code codeSystem="local" code="MCHC" displayName="MEAN CELL HGB CONCENTRATION" / > <statusCode code="completed" /> <effectiveTime value= "932401166889" /> <value unit="g/dL" xsi:type="PQ" value="33.0" /> <referenceRange> <observationRange> <text>32.0- 37.0</text> </observationRange> </referenceRange> </ observation> </component> <component> <observation moodCode= "EVN" classCode="OBS"> <templateId root="11.03.840.1.298667.07.07.22.4.2 " /> <id nullFlavor="NA" /> <code codeSystem="local" code="MCV " displayName="MEAN CELL VOLUME" /> <statusCode code="completed" /> <effectiveTime value="" /> <value unit="fl" xsi:type ="PQ" value="82.0" /> <referenceRange> <observationRange> <text>80.0-100.0</text> </observationRange> </ referenceRange> </observation> </component> <component> <observation moodCode="EVN" classCode="OBS"> <templateId root= "840.1.811409.07.07.22.4.2" /> <id nullFlavor="NA" /> < code codeSystem="local" code="MO#" displayName="MONOCYTE #" /> < statusCode code="completed" /> <effectiveTime value="" /> <value unit="k/cumm" xsi:type="PQ" value="0.7" /> < referenceRange> <observationRange> <text>0.1-1.0</text> </observationRange> </referenceRange> </observation > </component> <component> <observation moodCode="EVN" classCode="OBS"> <templateId root="11.03.840.1.626299.07.07.22.4.2" /> <id nullFlavor="NA" /> <code codeSystem="local" code="MO% " displayName="MONOCYTE %" /> <statusCode code="completed" /> <effectiveTime value="" /> <value unit="%" xsi: type="PQ" value="6" /> <referenceRange> <observationRange> <text>4-6</text> </observationRange> </ referenceRange> </observation> </component> <component> <observation moodCode="EVN" classCode="OBS"> <templateId root= "216.840.1.362077.10..22.4.2" /> <id nullFlavor="NA" /> < code codeSystem="local" code="RBC" displayName="RED BLOOD CELL" /> < statusCode code="completed" /> <effectiveTime value="686553965573" /> <value unit="m/cumm" xsi:type="PQ" value="4.51" /> < referenceRange> <observationRange> <text>4.00-6.00</text > </observationRange> </referenceRange> </observation > </component> <component> <observation moodCode="EVN" classCode="OBS"> <templateId root="16.840.1.914770.10...4.2" /> <id nullFlavor="NA" /> <code codeSystem="local" code="RDW" displayName="RED CELL DISTRIBUTION WIDTH" /> <statusCode code= "completed" /> <effectiveTime value="770724444411" /> <value unit="%" xsi:type="PQ" value="12.8" /> <referenceRange> <observationRange> <text>11.0-15.6</text> </ observationRange> </referenceRange> </observation> </ component> <component> <observation moodCode="EVN" classCode="OBS"> <templateId root="216.840.1.729921.10.20.22.4.2" /> <id nullFlavor="NA" /> <code codeSystem="local" code="WBC" displayName= "WHITE BLOOD CELL" /> <statusCode code="completed" /> < effectiveTime value="" /> <value unit="k/cumm" xsi:type="PQ " value="11.5" /> <interpretationCode codeSystem="local" code="*" /> <referenceRange> <observationRange> <text>5.0- 10.0</text> </observationRange> </referenceRange> </ observation> </component> <component> <observation moodCode= "EVN" classCode="OBS"> <templateId root="2.16.840.1.656975.10..22.4.2 " /> <id nullFlavor="NA" /> <code codeSystem="local" code= "HGBT" displayName="HEMOGLOBIN" /> <statusCode code="completed" /> <effectiveTime value="" /> <value unit="gm/dL" xsi: type="PQ" value="12.2" /> <referenceRange> <observationRange > <text>12.0-16.0</text> </observationRange> </ referenceRange> </observation> </component> <component> <observation moodCode="EVN" classCode="OBS"> <templateId root= "2.16.840.1.994524.10..22.4.2" /> <id nullFlavor="NA" /> < code codeSystem="local" code="HCTT" displayName="HEMATOCRIT" /> < statusCode code="completed" /> <effectiveTime value="" /> <value unit="%" xsi:type="PQ" value="37.0" /> < referenceRange> <observationRange> <text>37.0-47.0</text > </observationRange> </referenceRange> </observation > </component> <component> <observation moodCode="EVN" classCode="OBS"> <templateId root="11.03.840.1.511479.10...4.2" /> <id nullFlavor="NA" /> <code codeSystem="local" code="PLT" displayName="PLATELET COUNT" /> <statusCode code="completed" /> <effectiveTime value="085932960804" /> <value unit="k/cumm" xsi:type ="PQ" value="255" /> <referenceRange> <observationRange> <text>150-400</text> </observationRange> </ referenceRange> </observation> </component> </organizer> </entry > <entry> <organizer moodCode="EVN" classCode="BATTERY"> <templateId root="11.03.840.1.084405.10...4.1" /> <id nullFlavor="NA" /> <code codeSystem="local" code="RENAL" displayName="RENAL FUNCTION PANEL" /> < statusCode code="completed" /> <component> <observation moodCode= "EVN" classCode="OBS"> <templateId root="16.840.1.586534.10..22.4.2 " /> <id nullFlavor="NA" /> <code codeSystem="local" code="K" displayName="POTASSIUM" /> <statusCode code="completed" /> < effectiveTime value="285930811505" /> <value unit="mmol/L" xsi:type="PQ " value="4.8" /> <referenceRange> <observationRange> <text>3.5-5.3</text> </observationRange> </ referenceRange> </observation> </component> <component> <observation moodCode="EVN" classCode="OBS"> <templateId root= "11.03.840.1.976654.22.4.2" /> <id nullFlavor="NA" /> < code codeSystem="local" code="eGFR" displayName="EST GFR (MDRD)" /> < statusCode code="completed" /> <effectiveTime value="526578678460" /> <value unit="mL/min" xsi:type="PQ" value="> 60" /> < referenceRange> <observationRange> <text>> 59</text> </observationRange> </referenceRange> </observation > </component> <component> <observation moodCode="EVN" classCode="OBS"> <templateId root="2.16.840.1.088186....4.2" /> <id nullFlavor="NA" /> <code codeSystem="local" code="GAP" displayName="ANION GAP" /> <statusCode code="completed" /> < effectiveTime value="628164996001" /> <value unit="mmol/L" xsi:type="PQ " value="7" /> <referenceRange> <observationRange> <text>5-15</text> </observationRange> </referenceRange > </observation> </component> <component> <observation moodCode="EVN" classCode="OBS"> <templateId root= "2.16.840.1.973079.10..22.4.2" /> <id nullFlavor="NA" /> < code codeSystem="local" code="eCrCl" displayName="EST CrCl (CG)" /> < statusCode code="completed" /> <effectiveTime value="622163545279" /> <value unit="mL/min" xsi:type="PQ" value="> 60" /> < referenceRange> <observationRange> <text>> 59</text> </observationRange> </referenceRange> </observation > </component> <component> <observation moodCode="EVN" classCode="OBS"> <templateId root="16.840.1.937141.10..22.4.2" /> <id nullFlavor="NA" /> <code codeSystem="local" code="GLU" displayName="GLUCOSE" /> <statusCode code="completed" /> < effectiveTime value="" /> <value unit="mg/dL" xsi:type="PQ " value="135" /> <interpretationCode codeSystem="local" code="*" /> <referenceRange> <observationRange> <text>70-99</ text> </observationRange> </referenceRange> </ observation> </component> <component> <observation moodCode= "EVN" classCode="OBS"> <templateId root="11.03.840.1.803343...4.2 " /> <id nullFlavor="NA" /> <code codeSystem="local" code="CA " displayName="CALCIUM" /> <statusCode code="completed" /> < effectiveTime value="970040774778" /> <value unit="mg/dL" xsi:type="PQ " value="8.8" /> <referenceRange> <observationRange> <text>8.5-10.1</text> </observationRange> </ referenceRange> </observation> </component> <component> <observation moodCode="EVN" classCode="OBS"> <templateId root= "11.03.840.1.860479.10..22.4.2" /> <id nullFlavor="NA" /> < code codeSystem="local" code="BUN" displayName="BLOOD UREA NITROGEN" /> <statusCode code="completed" /> <effectiveTime value="592582284468" / > <value unit="mg/dL" xsi:type="PQ" value="4" /> < interpretationCode codeSystem="local" code="*" /> <referenceRange> <observationRange> <text>7-20</text> </ observationRange> </referenceRange> </observation> </ component> <component> <observation moodCode="EVN" classCode="OBS"> <templateId root="11.03.840.1.262646.10..4.2" /> <id nullFlavor="NA" /> <code codeSystem="local" code="CREAT" displayName= "CREATININE" /> <statusCode code="completed" /> < effectiveTime value="415409661035" /> <value unit="mg/dL" xsi:type="PQ " value="0.8" /> <referenceRange> <observationRange> <text>0.6-1.0</text> </observationRange> </ referenceRange> </observation> </component> <component> <observation moodCode="EVN" classCode="OBS"> <templateId root= "840.1.264103.07.07.22.4.2" /> <id nullFlavor="NA" /> < code codeSystem="local" code="NA" displayName="SODIUM" /> <statusCode code="completed" /> <effectiveTime value="053959713761" /> < value unit="mmol/L" xsi:type="PQ" value="143" /> <referenceRange> <observationRange> <text>135-148</text> </ observationRange> </referenceRange> </observation> </ component> <component> <observation moodCode="EVN" classCode="OBS"> <templateId root="11.03.840.1.232527.22.4.2" /> <id nullFlavor="NA" /> <code codeSystem="local" code="CL" displayName= "CHLORIDE" /> <statusCode code="completed" /> <effectiveTime value="771228289480" /> <value unit="mmol/L" xsi:type="PQ" value="110" /> <referenceRange> <observationRange> <text>98 -110</text> </observationRange> </referenceRange> </ observation> </component> <component> <observation moodCode= "EVN" classCode="OBS"> <templateId root="216.840.1.568080.07.07.22.4.2 " /> <id nullFlavor="NA" /> <code codeSystem="local" code="CO2 " displayName="CARBON DIOXIDE" /> <statusCode code="completed" /> <effectiveTime value="" /> <value unit="mmol/L" xsi: type="PQ" value="26" /> <referenceRange> <observationRange> <text>21-32</text> </observationRange> </ referenceRange> </observation> </component> <component> <observation moodCode="EVN" classCode="OBS"> <templateId root= "216.840.1.560517.07.07.22.4.2" /> <id nullFlavor="NA" /> < code codeSystem="local" code="ALB" displayName="ALBUMIN" /> < statusCode code="completed" /> <effectiveTime value="" /> <value unit="gm/dL" xsi:type="PQ" value="3.0" /> < interpretationCode codeSystem="local" code="*" /> <referenceRange> <observationRange> <text>3.4-5.0</text> </ observationRange> </referenceRange> </observation> </ component> <component> <observation moodCode="EVN" classCode="OBS"> <templateId root="216.840.1.190778.07.07.22.4.2" /> <id nullFlavor="NA" /> <code codeSystem="local" code="PHOS" displayName= "PHOSPHORUS" /> <statusCode code="completed" /> < effectiveTime value="686144538015" /> <value unit="mg/dL" xsi:type="PQ " value="2.5" /> <referenceRange> <observationRange> <text>2.5-4.9</text> </observationRange> </ referenceRange> </observation> </component> </organizer> </entry > <entry> <organizer moodCode="EVN" classCode="BATTERY"> <templateId root="16.840.1.260977.07.07.224.1" /> <id nullFlavor="NA" /> <code codeSystem="local" code="MAG" displayName="MAGNESIUM" /> <statusCode code= "completed" /> <component> <observation moodCode="EVN" classCode= "OBS"> <templateId root="16.840.1.818144.07.07.22.4.2" /> < id nullFlavor="NA" /> <code codeSystem="local" code="MAG" displayName= "MAGNESIUM" /> <statusCode code="completed" /> <effectiveTime value="449061403057" /> <value unit="mg/dL" xsi:type="PQ" value="1.5" / > <interpretationCode codeSystem="local" code="*" /> < referenceRange> <observationRange> <text>1.8-2.4</text> </observationRange> </referenceRange> </observation > </component> </organizer> </entry> <entry> <organizer moodCode= "EVN" classCode="BATTERY"> <templateId root="16.840.1.071502.07.07.22.4.1 " /> <id nullFlavor="NA" /> <code codeSystem="local" code="SACCHAB" displayName="AB SACCHAROMYCES CEREVISIAE" /> <statusCode code="completed" / > <component> <observation moodCode="EVN" classCode="OBS"> <templateId root="16.840.1.960949.10..4.2" /> <id nullFlavor="NA " /> <code codeSystem="local" code="I-SACCH" displayName= "INTERPRETATION" /> <statusCode code="completed" /> < effectiveTime value="735018252158" /> <value unit="" xsi:type="PQ" value="TEST NOT PERFORMED" /> <referenceRange> < observationRange> <text /> </observationRange> </referenceRange> </observation> </component> <component> <observation moodCode="EVN" classCode="OBS"> <templateId root= "840.1.561628.07.07.22.4.2" /> <id nullFlavor="NA" /> < code codeSystem="local" code="SACCHA" displayName="AB SACCHAROMYCES CEREVISIAE" /> <statusCode code="completed" /> <effectiveTime value= "744402955455" /> <value unit="" xsi:type="PQ" value="TEST NOT PERFORMED" /> <referenceRange> <observationRange> <text>< 20</text> </observationRange> </ referenceRange> </observation> </component> <component> <observation moodCode="EVN" classCode="OBS"> <templateId root= "11.03.840.1.022124.22.4.2" /> <id nullFlavor="NA" /> < code codeSystem="local" code="SACCHG" displayName="AB SACCHAROMYCES CEREVISIAE" /> <statusCode code="completed" /> <effectiveTime value= "984528547827" /> <value unit="" xsi:type="PQ" value="TEST NOT PERFORMED" /> <referenceRange> <observationRange> <text>< 20</text> </observationRange> </ referenceRange> </observation> </component> </organizer> </entry > <entry> <organizer moodCode="EVN" classCode="BATTERY"> <templateId root="216.840.1.311833.10.20.22.4.1" /> <id nullFlavor="NA" /> <code codeSystem="local" code="MRSAS" displayName="MRSA SURVEILLANCE SCREEN" /> < statusCode code="completed" /> <component> <observation moodCode= "EVN" classCode="OBS"> <templateId root="2.16.840.1.831513.10.20.22.4.2 " /> <id nullFlavor="NA" /> <code codeSystem="local" code="MB " displayName="Microbiology" /> <statusCode code="completed" /> <effectiveTime value="771701721174" /> <value xsi:type="ST" value="< pre><b>MRSA SURVEILLANCE SCREEN</b> See BelowMRSA SURVEILLANCE SCREEN(F) Yovani Date/Time: 08/04/2014 14:05 Clemencia Date/Time: 08/05/2014 12:22SOURCE: ANTERIOR NARESSPEC DESC: [id number] [place] [address] </pre>" /> <referenceRange> <observationRange> <text /> </observationRange> </referenceRange> </ observation> </component> </organizer> </entry> <entry> <organizer moodCode="EVN" classCode="BATTERY"> <templateId root= "2.16.840.1.071234.10.20.22.4.1" /> <id nullFlavor="NA" /> <code codeSystem="local" code="PREGN" displayName=" Screen, Urine NPT" /> <statusCode code="completed" /> <component> <observation moodCode ="EVN" classCode="OBS"> <templateId root= "216.840.1.687575.10..22.4.2" /> <id nullFlavor="NA" /> < code codeSystem="local" code="PREGN" displayName=" Screen, Urine NPT" / > <statusCode code="completed" /> <effectiveTime value= "385159980297" /> <value unit="NA" xsi:type="PQ" value="Negative" /> <referenceRange> <observationRange> <text /> </observationRange> </referenceRange> </observation> </component> </organizer> </entry> <entry> <organizer moodCode="EVN " classCode="BATTERY"> <templateId root="216.840.1.069444.10..22.4.1" / > <id nullFlavor="NA" /> <code codeSystem="local" code="UA" displayName="Urinalysis with reflex microscopic" /> <statusCode code= "completed" /> <component> <observation moodCode="EVN" classCode= "OBS"> <templateId root="216.840.1.115995.10..22.4.2" /> < id nullFlavor="NA" /> <code codeSystem="local" code="UAPP" displayName= "Appearance" /> <statusCode code="completed" /> < effectiveTime value="469706096957" /> <value unit="NA" xsi:type="PQ" value="Clear" /> <referenceRange> <observationRange> <text /> </observationRange> </referenceRange> </observation> </component> <component> <observation moodCode ="EVN" classCode="OBS"> <templateId root= "216.840.1.549654.10.22.4.2" /> <id nullFlavor="NA" /> < code codeSystem="local" code="UBIL" displayName="Bilirubin" /> < statusCode code="completed" /> <effectiveTime value="656705686038" /> <value unit="NA" xsi:type="PQ" value="Negative" /> < referenceRange> <observationRange> <text>Negative</text > </observationRange> </referenceRange> </observation > </component> <component> <observation moodCode="EVN" classCode="OBS"> <templateId root="216.840.1.786142.07.07.22.4.2" /> <id nullFlavor="NA" /> <code codeSystem="local" code="UBLD" displayName="Blood" /> <statusCode code="completed" /> < effectiveTime value="391025979396" /> <value unit="NA" xsi:type="PQ" value="Negative" /> <referenceRange> <observationRange> <text>Negative</text> </observationRange> </ referenceRange> </observation> </component> <component> <observation moodCode="EVN" classCode="OBS"> <templateId root= "16.840.1.728368.10.4.2" /> <id nullFlavor="NA" /> < code codeSystem="local" code="UCOLR" displayName="Color" /> < statusCode code="completed" /> <effectiveTime value="032179936523" /> <value unit="NA" xsi:type="PQ" value="Straw" /> < referenceRange> <observationRange> <text /> < /observationRange> </referenceRange> </observation> </ component> <component> <observation moodCode="EVN" classCode="OBS"> <templateId root="16.840.1.762446.10..4.2" /> <id nullFlavor="NA" /> <code codeSystem="local" code="UGLU" displayName= "Glucose, Urine" /> <statusCode code="completed" /> < effectiveTime value="062948348626" /> <value unit="" xsi:type="PQ" value="Negative" /> <referenceRange> <observationRange> <text>Negative</text> </observationRange> </ referenceRange> </observation> </component> <component> <observation moodCode="EVN" classCode="OBS"> <templateId root= "11.03.840.1.590288.07.07.22.4.2" /> <id nullFlavor="NA" /> < code codeSystem="local" code="UKET" displayName="Ketones" /> < statusCode code="completed" /> <effectiveTime value="932146829629" /> <value unit="" xsi:type="PQ" value="Negative" /> < referenceRange> <observationRange> <text>Negative</text > </observationRange> </referenceRange> </observation > </component> <component> <observation moodCode="EVN" classCode="OBS"> <templateId root="11.03.840.1.884444.10.4.2" /> <id nullFlavor="NA" /> <code codeSystem="local" code="ULEU" displayName="Leukocyte Esterase" /> <statusCode code="completed" /> <effectiveTime value="279836897672" /> <value unit="NA" xsi:type ="PQ" value="Negative" /> <referenceRange> <observationRange > <text>Negative</text> </observationRange> </ referenceRange> </observation> </component> <component> <observation moodCode="EVN" classCode="OBS"> <templateId root= "16.840.1.755110.10..4.2" /> <id nullFlavor="NA" /> < code codeSystem="local" code="UNIT" displayName="Nitrites" /> < statusCode code="completed" /> <effectiveTime value="836065062913" /> <value unit="NA" xsi:type="PQ" value="Negative" /> < referenceRange> <observationRange> <text>Negative</text > </observationRange> </referenceRange> </observation > </component> <component> <observation moodCode="EVN" classCode="OBS"> <templateId root="16.840.1.098577.10..4.2" /> <id nullFlavor="NA" /> <code codeSystem="local" code="UPH" displayName="pH" /> <statusCode code="completed" /> < effectiveTime value="974957481927" /> <value unit="NA" xsi:type="PQ" value="5.0" /> <referenceRange> <observationRange> <text>5.0-8.0</text> </observationRange> </ referenceRange> </observation> </component> <component> <observation moodCode="EVN" classCode="OBS"> <templateId root= "11.03.840.1.520265.10.22.4.2" /> <id nullFlavor="NA" /> < code codeSystem="local" code="UPRO" displayName="Protein" /> < statusCode code="completed" /> <effectiveTime value="363117368288" /> <value unit="NA" xsi:type="PQ" value="Negative" /> < referenceRange> <observationRange> <text>Negative</text > </observationRange> </referenceRange> </observation > </component> <component> <observation moodCode="EVN" classCode="OBS"> <templateId root="16.840.1.615522.07.07.22.4.2" /> <id nullFlavor="NA" /> <code codeSystem="local" code="USPG" displayName="Specific [place]" /> <statusCode code="completed" /> <effectiveTime value="977103803117" /> <value unit="NA" xsi:type= "PQ" value="1.010" /> <referenceRange> <observationRange> <text>1.003-1.030</text> </observationRange> </ referenceRange> </observation> </component> <component> <observation moodCode="EVN" classCode="OBS"> <templateId root= "11.03.840.1.755709.07.07.22.4.2" /> <id nullFlavor="NA" /> < code codeSystem="local" code="UTYP" displayName="UA Collection type" /> <statusCode code="completed" /> <effectiveTime value="615278275521" / > <value unit="NA" xsi:type="PQ" value="Voided" /> < referenceRange> <observationRange> <text /> < /observationRange> </referenceRange> </observation> </ component> <component> <observation moodCode="EVN" classCode="OBS"> <templateId root="16.840.1.767242.07.07.22.4.2" /> <id nullFlavor="NA" /> <code codeSystem="local" code="UURO" displayName= "Urobilinogen" /> <statusCode code="completed" /> < effectiveTime value="915950500528" /> <value unit="mg/dL" xsi:type="PQ " value="Negative" /> <referenceRange> <observationRange> <text><1.0</text> </observationRange> </ referenceRange> </observation> </component> </organizer> </entry > <entry> <organizer moodCode="EVN" classCode="BATTERY"> <templateId root="11.03.840.1.974330.10..22.4.1" /> <id nullFlavor="NA" /> <code codeSystem="local" code="VCHMN" displayName="Chem 8 NPT" /> <statusCode code="completed" /> <component> <observation moodCode="EVN" classCode="OBS"> <templateId root="11.03.840.1.372597.10..22.4.2" /> <id nullFlavor="NA" /> <code codeSystem="local" code="VAGAP" displayName="Anion Gap" /> <statusCode code="completed" /> < effectiveTime value="246622533536" /> <value unit="mEq/L" xsi:type="PQ " value="9" /> <referenceRange> <observationRange> <text>3-20</text> </observationRange> </referenceRange > </observation> </component> <component> <observation moodCode="EVN" classCode="OBS"> <templateId root= "11.03.840.1.319613.10..22.4.2" /> <id nullFlavor="NA" /> < code codeSystem="local" code="VBUNN" displayName="BUN Venous" /> < statusCode code="completed" /> <effectiveTime value="073052525736" /> <value unit="mg/dl" xsi:type="PQ" value="6" /> <referenceRange > <observationRange> <text>4-20</text> </ observationRange> </referenceRange> </observation> </ component> <component> <observation moodCode="EVN" classCode="OBS"> <templateId root="2.16.840.1.978074.10..4.2" /> <id nullFlavor="NA" /> <code codeSystem="local" code="VCANN" displayName= "Calcium Ionized Venous" /> <statusCode code="completed" /> < effectiveTime value="129539079804" /> <value unit="mmol/L" xsi:type="PQ " value="1.15" /> <interpretationCode codeSystem="local" code="*" /> <referenceRange> <observationRange> <text>1.19- 1.41</text> </observationRange> </referenceRange> </ observation> </component> <component> <observation moodCode= "EVN" classCode="OBS"> <templateId root="16.840.1.533141.07.07.224.2 " /> <id nullFlavor="NA" /> <code codeSystem="local" code= "VCREN" displayName="Creatinine Venous" /> <statusCode code="completed " /> <effectiveTime value="282328642762" /> <value unit="mg/dL " xsi:type="PQ" value="0.7" /> <referenceRange> < observationRange> <text>0.4-1.0</text> </ observationRange> </referenceRange> </observation> </ component> <component> <observation moodCode="EVN" classCode="OBS"> <templateId root="216.840.1.480109.07.07.22.4.2" /> <id nullFlavor="NA" /> <code codeSystem="local" code="VGLNN" displayName= "Glucose Venous" /> <statusCode code="completed" /> < effectiveTime value="744665174768" /> <value unit="mg/dL" xsi:type="PQ " value="113" /> <interpretationCode codeSystem="local" code="*" /> <referenceRange> <observationRange> <text>70-100< /text> </observationRange> </referenceRange> </ observation> </component> <component> <observation moodCode= "EVN" classCode="OBS"> <templateId root="16.840.1.277046.10..22.4.2 " /> <id nullFlavor="NA" /> <code codeSystem="local" code= "VKNN" displayName="Potassium, WB" /> <statusCode code="completed" /> <effectiveTime value="564600041261" /> <value unit="mEq/L" xsi :type="PQ" value="3.9" /> <referenceRange> <observationRange > <text>3.6-5.1</text> </observationRange> </ referenceRange> </observation> </component> <component> <observation moodCode="EVN" classCode="OBS"> <templateId root= "11.03.840.1.883841.10..22.4.2" /> <id nullFlavor="NA" /> < code codeSystem="local" code="VNANN" displayName="Sodium Venous" /> < statusCode code="completed" /> <effectiveTime value="174164895838" /> <value unit="mEq/L" xsi:type="PQ" value="141" /> < referenceRange> <observationRange> <text>136-144</text> </observationRange> </referenceRange> </observation > </component> <component> <observation moodCode="EVN" classCode="OBS"> <templateId root="11.03.840.1.400155.22.4.2" /> <id nullFlavor="NA" /> <code codeSystem="local" code="VTCNN" displayName="Total CO2 Venous" /> <statusCode code="completed" /> <effectiveTime value="833381536879" /> <value unit="mEq/L" xsi: type="PQ" value="27" /> <referenceRange> <observationRange> <text>25-29</text> </observationRange> </ referenceRange> </observation> </component> <component> <observation moodCode="EVN" classCode="OBS"> <templateId root= "2.16.840.1.396369.10...4.2" /> <id nullFlavor="NA" /> < code codeSystem="local" code="VCLN" displayName="Venous CL" /> < statusCode code="completed" /> <effectiveTime value="619899717302" /> <value unit="mEq/L" xsi:type="PQ" value="105" /> < referenceRange> <observationRange> <text>99-109</text> </observationRange> </referenceRange> </observation> </component> <component> <observation moodCode="EVN" classCode ="OBS"> <templateId root="2.16.840.1.199001.10..22.4.2" /> < id nullFlavor="NA" /> <code codeSystem="local" code="VHCNN" displayName ="HCT Venous" /> <statusCode code="completed" /> < effectiveTime value="613009829823" /> <value unit="%" xsi:type="PQ " value="39.0" /> <referenceRange> <observationRange> <text>37.0-47.0</text> </observationRange> </ referenceRange> </observation> </component> <component> <observation moodCode="EVN" classCode="OBS"> <templateId root= "2.16.840.1.029439.10.20.22.4.2" /> <id nullFlavor="NA" /> < code codeSystem="local" code="VHGNN" displayName="HGB Venous NPT" /> < statusCode code="completed" /> <effectiveTime value="960786111787" /> <value unit="g/dL" xsi:type="PQ" value="13.3" /> < referenceRange> <observationRange> <text>12.0-16.0</text > </observationRange> </referenceRange> </observation > </component> </organizer> </entry> <entry> <organizer moodCode= "EVN" classCode="BATTERY"> <templateId root="2.16.840.1.217723.10.20.22.4.1 " /> <id nullFlavor="NA" /> <code codeSystem="local" code="CBCWD" displayName="CBC With Platelet and Differential" /> <statusCode code= "completed" /> <component> <observation moodCode="EVN" classCode= "OBS"> <templateId root="2.16.840.1.988727.10.20.22.4.2" /> < id nullFlavor="NA" /> <code codeSystem="local" code="ABASR" displayName ="Absolute Basophils" /> <statusCode code="completed" /> < effectiveTime value="346063378889" /> <value unit="10*3/uL" xsi:type= "PQ" value="0.02" /> <referenceRange> <observationRange> <text>0.00-0.20</text> </observationRange> </ referenceRange> </observation> </component> <component> <observation moodCode="EVN" classCode="OBS"> <templateId root= "2.16.840.1.326860.10..22.4.2" /> <id nullFlavor="NA" /> < code codeSystem="local" code="AEOSR" displayName="Absolute Eosinophils" /> <statusCode code="completed" /> <effectiveTime value=" " /> <value unit="10*3/uL" xsi:type="PQ" value="0.10" /> < referenceRange> <observationRange> <text>0.00-0.50</text > </observationRange> </referenceRange> </observation > </component> <component> <observation moodCode="EVN" classCode="OBS"> <templateId root="216.840.1.803130...4.2" /> <id nullFlavor="NA" /> <code codeSystem="local" code="ALYMR" displayName="Absolute Lymphocytes" /> <statusCode code="completed" /> <effectiveTime value="" /> <value unit="10*3/uL" xsi:type="PQ" value="1.67" /> <referenceRange> < observationRange> <text>0.80-3.30</text> </ observationRange> </referenceRange> </observation> </ component> <component> <observation moodCode="EVN" classCode="OBS"> <templateId root="16.840.1.787450.10.20.22.4.2" /> <id nullFlavor="NA" /> <code codeSystem="local" code="AMONR" displayName= "Absolute Monocytes" /> <statusCode code="completed" /> < effectiveTime value="672024406152" /> <value unit="10*3/uL" xsi:type= "PQ" value="0.44" /> <referenceRange> <observationRange> <text>0.30-1.00</text> </observationRange> </ referenceRange> </observation> </component> <component> <observation moodCode="EVN" classCode="OBS"> <templateId root= "16.840.1.141386.10.2022.4.2" /> <id nullFlavor="NA" /> < code codeSystem="local" code="ASEGR" displayName="Absolute Neutrophils" /> <statusCode code="completed" /> <effectiveTime value="144300589931 " /> <value unit="10*3/uL" xsi:type="PQ" value="3.87" /> < referenceRange> <observationRange> <text>1.90-7.00</text > </observationRange> </referenceRange> </observation > </component> <component> <observation moodCode="EVN" classCode="OBS"> <templateId root="11.03.840.1.385388.07.07.22.4.2" /> <id nullFlavor="NA" /> <code codeSystem="local" code="BASOR" displayName="Basophils" /> <statusCode code="completed" /> < effectiveTime value="713325090952" /> <value unit="%" xsi:type="PQ " value="0" /> <referenceRange> <observationRange> <text>0-2</text> </observationRange> </referenceRange> </observation> </component> <component> <observation moodCode="EVN" classCode="OBS"> <templateId root= "11.03.840.1.277213.10.22.4.2" /> <id nullFlavor="NA" /> < code codeSystem="local" code="EOSR" displayName="Eosinophils" /> < statusCode code="completed" /> <effectiveTime value="528004845272" /> <value unit="%" xsi:type="PQ" value="2" /> <referenceRange > <observationRange> <text>0-4</text> </ observationRange> </referenceRange> </observation> </ component> <component> <observation moodCode="EVN" classCode="OBS"> <templateId root="216.840.1.246298.10.20.22.4.2" /> <id nullFlavor="NA" /> <code codeSystem="local" code="HCT" displayName="HCT " /> <statusCode code="completed" /> <effectiveTime value= "332636866355" /> <value unit="%" xsi:type="PQ" value="38.8" /> <referenceRange> <observationRange> <text>37.0- 47.0</text> </observationRange> </referenceRange> </ observation> </component> <component> <observation moodCode= "EVN" classCode="OBS"> <templateId root="16.840.1.617965.10..22.4.2 " /> <id nullFlavor="NA" /> <code codeSystem="local" code="HGB " displayName="HGB" /> <statusCode code="completed" /> < effectiveTime value="925030857291" /> <value unit="g/dL" xsi:type="PQ" value="13.3" /> <referenceRange> <observationRange> <text>12.0-16.0</text> </observationRange> </ referenceRange> </observation> </component> <component> <observation moodCode="EVN" classCode="OBS"> <templateId root= "216.840.1.004770.10.20.22.4.2" /> <id nullFlavor="NA" /> < code codeSystem="local" code="IMGA" displayName="Immature Granulocytes" /> <statusCode code="completed" /> <effectiveTime value=" " /> <value unit="%" xsi:type="PQ" value="0.2" /> < referenceRange> <observationRange> <text>0.0-1.0</text> </observationRange> </referenceRange> </observation > </component> <component> <observation moodCode="EVN" classCode="OBS"> <templateId root="16.840.1.858204.10..22.4.2" /> <id nullFlavor="NA" /> <code codeSystem="local" code="LYMPR" displayName="Lymphocytes" /> <statusCode code="completed" /> < effectiveTime value="" /> <value unit="%" xsi:type="PQ " value="27" /> <referenceRange> <observationRange> <text>20-46</text> </observationRange> </ referenceRange> </observation> </component> <component> <observation moodCode="EVN" classCode="OBS"> <templateId root= "16.840.1.516448.10..22.4.2" /> <id nullFlavor="NA" /> < code codeSystem="local" code="MCH" displayName="MCH" /> <statusCode code="completed" /> <effectiveTime value="620543025244" /> < value unit="pg" xsi:type="PQ" value="28.1" /> <referenceRange> <observationRange> <text>27.0-32.0</text> </ observationRange> </referenceRange> </observation> </ component> <component> <observation moodCode="EVN" classCode="OBS"> <templateId root="11.03.840.1.102444.22.4.2" /> <id nullFlavor="NA" /> <code codeSystem="local" code="MCHC" displayName= "MCHC" /> <statusCode code="completed" /> <effectiveTime value ="976494781159" /> <value unit="g/dL" xsi:type="PQ" value="34.3" /> <referenceRange> <observationRange> <text>32.0- 36.0</text> </observationRange> </referenceRange> </ observation> </component> <component> <observation moodCode= "EVN" classCode="OBS"> <templateId root="11.03.840.1.652070.07.07.22.4.2 " /> <id nullFlavor="NA" /> <code codeSystem="local" code="MCV " displayName="MCV" /> <statusCode code="completed" /> < effectiveTime value="014586244616" /> <value unit="fL" xsi:type="PQ" value="81.9" /> <interpretationCode codeSystem="local" code="*" /> <referenceRange> <observationRange> <text>82.0- 99.0</text> </observationRange> </referenceRange> </ observation> </component> <component> <observation moodCode= "EVN" classCode="OBS"> <templateId root="11.03.840.1.326087.1022.4.2 " /> <id nullFlavor="NA" /> <code codeSystem="local" code= "MONOR" displayName="Monocytes" /> <statusCode code="completed" /> <effectiveTime value="598461858937" /> <value unit="%" xsi: type="PQ" value="7" /> <referenceRange> <observationRange> <text>4-11</text> </observationRange> </ referenceRange> </observation> </component> <component> <observation moodCode="EVN" classCode="OBS"> <templateId root= "216.840.1.310942.10.22.4.2" /> <id nullFlavor="NA" /> < code codeSystem="local" code="MPV" displayName="MPV" /> <statusCode code="completed" /> <effectiveTime value="" /> < value unit="fL" xsi:type="PQ" value="9.1" /> <interpretationCode codeSystem="local" code="*" /> <referenceRange> < observationRange> <text>9.4-12.4</text> </ observationRange> </referenceRange> </observation> </ component> <component> <observation moodCode="EVN" classCode="OBS"> <templateId root="216.840.1.435347.104.2" /> <id nullFlavor="NA" /> <code codeSystem="local" code="SEGR" displayName= "Neutrophils" /> <statusCode code="completed" /> < effectiveTime value="" /> <value unit="%" xsi:type="PQ " value="63" /> <referenceRange> <observationRange> <text>51-75</text> </observationRange> </ referenceRange> </observation> </component> <component> <observation moodCode="EVN" classCode="OBS"> <templateId root= "216.840.1.640008.10.22.4.2" /> <id nullFlavor="NA" /> < code codeSystem="local" code="NRBCA" displayName="Nucleated RBC Automated" /> <statusCode code="completed" /> <effectiveTime value= "" /> <value unit="/100WBC" xsi:type="PQ" value="0.0" /> <referenceRange> <observationRange> <text /> </observationRange> </referenceRange> </observation> </component> <component> <observation moodCode="EVN" classCode= "OBS"> <templateId root="216.840.1.612432.10..22.4.2" /> < id nullFlavor="NA" /> <code codeSystem="local" code="PLT" displayName= "Platelet Count" /> <statusCode code="completed" /> < effectiveTime value="" /> <value unit="K/uL" xsi:type="PQ" value="260" /> <referenceRange> <observationRange> <text>150-400</text> </observationRange> </ referenceRange> </observation> </component> <component> <observation moodCode="EVN" classCode="OBS"> <templateId root= "11.03.840.1.388412.10.22.4.2" /> <id nullFlavor="NA" /> < code codeSystem="local" code="RBC" displayName="RBC" /> <statusCode code="completed" /> <effectiveTime value="" /> < value unit="10*6/uL" xsi:type="PQ" value="4.74" /> <referenceRange> <observationRange> <text>4.00-5.20</text> </ observationRange> </referenceRange> </observation> </ component> <component> <observation moodCode="EVN" classCode="OBS"> <templateId root="16.840.1.077047.10.20.22.4.2" /> <id nullFlavor="NA" /> <code codeSystem="local" code="RDW" displayName="RDW " /> <statusCode code="completed" /> <effectiveTime value= "835897004521" /> <value unit="%" xsi:type="PQ" value="12.7" /> <referenceRange> <observationRange> <text>11.5- 14.5</text> </observationRange> </referenceRange> </ observation> </component> <component> <observation moodCode= "EVN" classCode="OBS"> <templateId root="840.1.365211.1022.4.2 " /> <id nullFlavor="NA" /> <code codeSystem="local" code= "WBCIR" displayName="WBC" /> <statusCode code="completed" /> < effectiveTime value="545172512256" /> <value unit="K/uL" xsi:type="PQ" value="6.1" /> <referenceRange> <observationRange> <text>4.8-10.8</text> </observationRange> </ referenceRange> </observation> </component> </organizer> </entry > <entry> <organizer moodCode="EVN" classCode="BATTERY"> <templateId root="840.1.857285.22.4.1" /> <id nullFlavor="NA" /> <code codeSystem="local" code="UA" displayName="Urinalysis with reflex microscopic" / > <statusCode code="completed" /> <component> <observation moodCode="EVN" classCode="OBS"> <templateId root= "840.1.330727.102022.4.2" /> <id nullFlavor="NA" /> < code codeSystem="local" code="UAPP" displayName="Appearance" /> < statusCode code="completed" /> <effectiveTime value="" /> <value unit="NA" xsi:type="PQ" value="Sl Cloudy" /> < referenceRange> <observationRange> <text /> < /observationRange> </referenceRange> </observation> </ component> <component> <observation moodCode="EVN" classCode="OBS"> <templateId root="16.840.1.339362.07.07.22.4.2" /> <id nullFlavor="NA" /> <code codeSystem="local" code="UBIL" displayName= "Bilirubin" /> <statusCode code="completed" /> <effectiveTime value="" /> <value unit="NA" xsi:type="PQ" value="Negative " /> <referenceRange> <observationRange> <text> Negative</text> </observationRange> </referenceRange> </observation> </component> <component> <observation moodCode ="EVN" classCode="OBS"> <templateId root= "11.03.840.1.592305.07.07.22.4.2" /> <id nullFlavor="NA" /> < code codeSystem="local" code="UBLD" displayName="Blood" /> <statusCode code="completed" /> <effectiveTime value="" /> < value unit="NA" xsi:type="PQ" value="Negative" /> <referenceRange> <observationRange> <text>Negative</text> </ observationRange> </referenceRange> </observation> </ component> <component> <observation moodCode="EVN" classCode="OBS"> <templateId root="11.03.840.1.864330.22.4.2" /> <id nullFlavor="NA" /> <code codeSystem="local" code="UCOLR" displayName= "Color" /> <statusCode code="completed" /> <effectiveTime value="" /> <value unit="NA" xsi:type="PQ" value="Anju" / > <interpretationCode codeSystem="local" code="*" /> < referenceRange> <observationRange> <text /> < /observationRange> </referenceRange> </observation> </ component> <component> <observation moodCode="EVN" classCode="OBS"> <templateId root="11.03.840.1.937640.07.07.22.4.2" /> <id nullFlavor="NA" /> <code codeSystem="local" code="UGLU" displayName= "Glucose, Urine" /> <statusCode code="completed" /> < effectiveTime value="" /> <value unit="" xsi:type="PQ" value="Negative" /> <referenceRange> <observationRange> <text>Negative</text> </observationRange> </ referenceRange> </observation> </component> <component> <observation moodCode="EVN" classCode="OBS"> <templateId root= "11.03.840.1.423311.07.07.22.4.2" /> <id nullFlavor="NA" /> < code codeSystem="local" code="UKET" displayName="Ketones" /> < statusCode code="completed" /> <effectiveTime value="" /> <value unit="" xsi:type="PQ" value="Negative" /> < referenceRange> <observationRange> <text>Negative</text > </observationRange> </referenceRange> </observation > </component> <component> <observation moodCode="EVN" classCode="OBS"> <templateId root="11.03.840.1.886122.07.07.22.4.2" /> <id nullFlavor="NA" /> <code codeSystem="local" code="ULEU" displayName="Leukocyte Esterase" /> <statusCode code="completed" /> <effectiveTime value="" /> <value unit="NA" xsi:type ="PQ" value="Pos 1+" /> <interpretationCode codeSystem="local" code="* " /> <referenceRange> <observationRange> <text> Negative</text> </observationRange> </referenceRange> </observation> </component> <component> <observation moodCode ="EVN" classCode="OBS"> <templateId root= "216.840.1.500938.10..22.4.2" /> <id nullFlavor="NA" /> < code codeSystem="local" code="UNIT" displayName="Nitrites" /> < statusCode code="completed" /> <effectiveTime value="" /> <value unit="NA" xsi:type="PQ" value="Negative" /> < referenceRange> <observationRange> <text>Negative</text > </observationRange> </referenceRange> </observation > </component> <component> <observation moodCode="EVN" classCode="OBS"> <templateId root="2.16.840.1.052443.10..22.4.2" /> <id nullFlavor="NA" /> <code codeSystem="local" code="UPH" displayName="pH" /> <statusCode code="completed" /> < effectiveTime value="555373724687" /> <value unit="NA" xsi:type="PQ" value="5.0" /> <referenceRange> <observationRange> <text>5.0-8.0</text> </observationRange> </ referenceRange> </observation> </component> <component> <observation moodCode="EVN" classCode="OBS"> <templateId root= "216.840.1.199927.10..22.4.2" /> <id nullFlavor="NA" /> < code codeSystem="local" code="UPRO" displayName="Protein" /> < statusCode code="completed" /> <effectiveTime value="163557494827" /> <value unit="NA" xsi:type="PQ" value="Pos 1+" /> < interpretationCode codeSystem="local" code="*" /> <referenceRange> <observationRange> <text>Negative</text> </ observationRange> </referenceRange> </observation> </ component> <component> <observation moodCode="EVN" classCode="OBS"> <templateId root="16.840.1.734280...4.2" /> <id nullFlavor="NA" /> <code codeSystem="local" code="USPG" displayName= "Specific [place]" /> <statusCode code="completed" /> < effectiveTime value="" /> <value unit="NA" xsi:type="PQ" value="1.030" /> <referenceRange> <observationRange> <text>1.003-1.030</text> </observationRange> </ referenceRange> </observation> </component> <component> <observation moodCode="EVN" classCode="OBS"> <templateId root= "16.840.1.760775.10.22.4.2" /> <id nullFlavor="NA" /> < code codeSystem="local" code="UTYP" displayName="UA Collection type" /> <statusCode code="completed" /> <effectiveTime value="303104901001" / > <value unit="NA" xsi:type="PQ" value="Catheter" /> < referenceRange> <observationRange> <text /> < /observationRange> </referenceRange> </observation> </ component> <component> <observation moodCode="EVN" classCode="OBS"> <templateId root="216.840.1.216656.10.4.2" /> <id nullFlavor="NA" /> <code codeSystem="local" code="UURO" displayName= "Urobilinogen" /> <statusCode code="completed" /> < effectiveTime value="[id number]" /> <value unit="mg/dL" xsi:type="PQ " value="4.0" /> <referenceRange> <observationRange> <text><1.0</text> </observationRange> </ referenceRange> </observation> </component> </organizer> </entry > <entry> <organizer moodCode="EVN" classCode="BATTERY"> <templateId root="216.840.1.843825.10..22.4.1" /> <id nullFlavor="NA" /> <code codeSystem="local" code="UMIC" displayName="Urine Microscopic" /> < statusCode code="completed" /> <component> <observation moodCode= "EVN" classCode="OBS"> <templateId root="216.840.1.834222.10..22.4.2 " /> <id nullFlavor="NA" /> <code codeSystem="local" code= "UBAC" displayName="Bacteria" /> <statusCode code="completed" /> <effectiveTime value="974131975646" /> <value unit="NA" xsi:type= "PQ" value="Occasional" /> <interpretationCode codeSystem="local" code= "*" /> <referenceRange> <observationRange> < text /> </observationRange> </referenceRange> </ observation> </component> <component> <observation moodCode= "EVN" classCode="OBS"> <templateId root="216.840.1.235220.10.4.2 " /> <id nullFlavor="NA" /> <code codeSystem="local" code= "UEPI" displayName="Epithelial Cells" /> <statusCode code="completed" / > <effectiveTime value="" /> <value unit="/HPF" xsi:type="PQ" value="0" /> <referenceRange> < observationRange> <text /> </observationRange> </referenceRange> </observation> </component> <component> <observation moodCode="EVN" classCode="OBS"> <templateId root= "16.840.1.933762.07.07.22.4.2" /> <id nullFlavor="NA" /> < code codeSystem="local" code="UMUC" displayName="Urine Mucus" /> < statusCode code="completed" /> <effectiveTime value="" /> <value unit="NA" xsi:type="PQ" value="Present" /> < referenceRange> <observationRange> <text /> < /observationRange> </referenceRange> </observation> </ component> <component> <observation moodCode="EVN" classCode="OBS"> <templateId root="16.840.1.700442.10.4.2" /> <id nullFlavor="NA" /> <code codeSystem="local" code="UWBC" displayName= "WBC, Urine" /> <statusCode code="completed" /> < effectiveTime value="" /> <value unit="/HPF" xsi:type="PQ" value="5" /> <interpretationCode codeSystem="local" code="*" /> <referenceRange> <observationRange> <text>0-4</text> </observationRange> </referenceRange> </observation > </component> </organizer> </entry> <entry> <organizer moodCode= "EVN" classCode="BATTERY"> <templateId root="216.840.1.524391.10..22.4.1 " /> <id nullFlavor="NA" /> <code codeSystem="local" code="CMP" displayName="Comprehensive Metabolic Panel (CMP)" /> <statusCode code= "completed" /> <component> <observation moodCode="EVN" classCode= "OBS"> <templateId root="216.840.1.451918.10...4.2" /> < id nullFlavor="NA" /> <code codeSystem="local" code="ALB" displayName= "Albumin" /> <statusCode code="completed" /> <effectiveTime value="145318555465" /> <value unit="g/dL" xsi:type="PQ" value="3.9" / > <referenceRange> <observationRange> <text>3.5 -4.8</text> </observationRange> </referenceRange> </ observation> </component> <component> <observation moodCode= "EVN" classCode="OBS"> <templateId root="216.840.1.472188.10...4.2 " /> <id nullFlavor="NA" /> <code codeSystem="local" code="ALP " displayName="Alkaline Phosphatase" /> <statusCode code="completed" / > <effectiveTime value="854528561355" /> <value unit="U/L" xsi :type="PQ" value="99" /> <referenceRange> <observationRange > <text>26-104</text> </observationRange> </ referenceRange> </observation> </component> <component> <observation moodCode="EVN" classCode="OBS"> <templateId root= "16.840.1.462285.10..22.4.2" /> <id nullFlavor="NA" /> < code codeSystem="local" code="ALT" displayName="ALT (SGPT)" /> < statusCode code="completed" /> <effectiveTime value="" /> <value unit="U/L" xsi:type="PQ" value="110" /> < interpretationCode codeSystem="local" code="*" /> <referenceRange> <observationRange> <text>14-54</text> </ observationRange> </referenceRange> </observation> </ component> <component> <observation moodCode="EVN" classCode="OBS"> <templateId root="16.840.1.227765...4.2" /> <id nullFlavor="NA" /> <code codeSystem="local" code="AGAP" displayName= "Anion Gap" /> <statusCode code="completed" /> <effectiveTime value="" /> <value unit="mEq/L" xsi:type="PQ" value="10" / > <referenceRange> <observationRange> <text>3- 20</text> </observationRange> </referenceRange> </ observation> </component> <component> <observation moodCode= "EVN" classCode="OBS"> <templateId root="11.03.840.1.107321.10..22.4.2 " /> <id nullFlavor="NA" /> <code codeSystem="local" code="AST " displayName="AST (SGOT)" /> <statusCode code="completed" /> <effectiveTime value="" /> <value unit="U/L" xsi:type="PQ" value="70" /> <interpretationCode codeSystem="local" code="*" /> <referenceRange> <observationRange> <text>15-41</ text> </observationRange> </referenceRange> </ observation> </component> <component> <observation moodCode= "EVN" classCode="OBS"> <templateId root="16.840.1.165381.10..22.4.2 " /> <id nullFlavor="NA" /> <code codeSystem="local" code= "BILIT" displayName="Bilirubin Total" /> <statusCode code="completed" / > <effectiveTime value="752961619779" /> <value unit="mg/dL" xsi:type="PQ" value="1.7" /> <interpretationCode codeSystem="local" code="*" /> <referenceRange> <observationRange> <text>0.2-1.2</text> </observationRange> </referenceRange > </observation> </component> <component> <observation moodCode="EVN" classCode="OBS"> <templateId root= "11.03.840.1.430370...4.2" /> <id nullFlavor="NA" /> < code codeSystem="local" code="BUN" displayName="BUN" /> <statusCode code="completed" /> <effectiveTime value="894754078242" /> < value unit="mg/dL" xsi:type="PQ" value="11" /> <referenceRange> <observationRange> <text>4-20</text> </ observationRange> </referenceRange> </observation> </ component> <component> <observation moodCode="EVN" classCode="OBS"> <templateId root="16.840.1.927961.10..22.4.2" /> <id nullFlavor="NA" /> <code codeSystem="local" code="CA" displayName= "Calcium" /> <statusCode code="completed" /> <effectiveTime value="817902388187" /> <value unit="mg/dL" xsi:type="PQ" value="9.5" / > <referenceRange> <observationRange> <text>8.6 -10.0</text> </observationRange> </referenceRange> </ observation> </component> <component> <observation moodCode= "EVN" classCode="OBS"> <templateId root="11.03.840.1.462434.10.20.22.4.2 " /> <id nullFlavor="NA" /> <code codeSystem="local" code="CL " displayName="Chloride" /> <statusCode code="completed" /> < effectiveTime value="157181642157" /> <value unit="mEq/L" xsi:type="PQ " value="101" /> <referenceRange> <observationRange> <text>99-109</text> </observationRange> </ referenceRange> </observation> </component> <component> <observation moodCode="EVN" classCode="OBS"> <templateId root= "11.03.840.1.244968..22.4.2" /> <id nullFlavor="NA" /> < code codeSystem="local" code="CO2" displayName="CO2" /> <statusCode code="completed" /> <effectiveTime value="769241717502" /> < value unit="mEq/L" xsi:type="PQ" value="26" /> <referenceRange> <observationRange> <text>22-32</text> </ observationRange> </referenceRange> </observation> </ component> <component> <observation moodCode="EVN" classCode="OBS"> <templateId root="11.03.840.1.352391.07.07.22.4.2" /> <id nullFlavor="NA" /> <code codeSystem="local" code="CREAT" displayName= "Creatinine" /> <statusCode code="completed" /> < effectiveTime value="117457297589" /> <value unit="mg/dL" xsi:type="PQ " value="0.82" /> <referenceRange> <observationRange> <text>0.44-1.03</text> </observationRange> </ referenceRange> </observation> </component> <component> <observation moodCode="EVN" classCode="OBS"> <templateId root= "2.16.840.1.987763.07.07.22.4.2" /> <id nullFlavor="NA" /> < code codeSystem="local" code="GLOB" displayName="Globulin" /> < statusCode code="completed" /> <effectiveTime value="530173336252" /> <value unit="g/dL" xsi:type="PQ" value="3.4" /> < referenceRange> <observationRange> <text>1.9-4.3</text> </observationRange> </referenceRange> </observation > </component> <component> <observation moodCode="EVN" classCode="OBS"> <templateId root="2.16.840.1.679311.07.07.22.4.2" /> <id nullFlavor="NA" /> <code codeSystem="local" code="GLU" displayName="Glucose" /> <statusCode code="completed" /> < effectiveTime value="649048355805" /> <value unit="mg/dL" xsi:type="PQ " value="125" /> <interpretationCode codeSystem="local" code="*" /> <referenceRange> <observationRange> <text>70-100< /text> </observationRange> </referenceRange> </ observation> </component> <component> <observation moodCode= "EVN" classCode="OBS"> <templateId root="216.840.1.925867.10..4.2 " /> <id nullFlavor="NA" /> <code codeSystem="local" code="K" displayName="Potassium" /> <statusCode code="completed" /> < effectiveTime value="371039994566" /> <value unit="mEq/L" xsi:type="PQ " value="3.4" /> <interpretationCode codeSystem="local" code="*" /> <referenceRange> <observationRange> <text>3.6-5.1 </text> </observationRange> </referenceRange> </ observation> </component> <component> <observation moodCode= "EVN" classCode="OBS"> <templateId root="16.840.1.650819.07.07.22.4.2 " /> <id nullFlavor="NA" /> <code codeSystem="local" code="TP " displayName="Protein" /> <statusCode code="completed" /> < effectiveTime value="250808669450" /> <value unit="g/dL" xsi:type="PQ" value="7.3" /> <referenceRange> <observationRange> <text>6.1-7.9</text> </observationRange> </ referenceRange> </observation> </component> <component> <observation moodCode="EVN" classCode="OBS"> <templateId root= "16.840.1.893224.10..4.2" /> <id nullFlavor="NA" /> < code codeSystem="local" code="NA" displayName="Sodium" /> <statusCode code="completed" /> <effectiveTime value="291090583471" /> < value unit="mEq/L" xsi:type="PQ" value="137" /> <referenceRange> <observationRange> <text>136-144</text> </ observationRange> </referenceRange> </observation> </ component> </organizer> </entry> <entry> <organizer moodCode="EVN" classCode="BATTERY"> <templateId root="11.03.840.1.315137.10..22.4.1" /> <id nullFlavor="NA" /> <code codeSystem="local" code="LIPA" displayName="Lipase" /> <statusCode code="completed" /> <component> <observation moodCode="EVN" classCode="OBS"> <templateId root= "840.1.867975.10...4.2" /> <id nullFlavor="NA" /> < code codeSystem="local" code="LIPA" displayName="Lipase" /> < statusCode code="completed" /> <effectiveTime value="241066199739" /> <value unit="U/L" xsi:type="PQ" value="27" /> <referenceRange > <observationRange> <text>8-48</text> </ observationRange> </referenceRange> </observation> </ component> </organizer> </entry> <entry> <organizer moodCode="EVN" classCode="BATTERY"> <templateId root="11.03.840.1.572686.10...4.1" /> <id nullFlavor="NA" /> <code codeSystem="local" code="GFR" displayName ="eGFR" /> <statusCode code="completed" /> <component> < observation moodCode="EVN" classCode="OBS"> <templateId root= "11.03.840.1.682981.10..22.4.2" /> <id nullFlavor="NA" /> < code codeSystem="local" code="GFR" displayName="eGFR" /> <statusCode code="completed" /> <effectiveTime value="450201073568" /> < value unit="mL/min" xsi:type="PQ" value=">60" /> <referenceRange> <observationRange> <text>>60</text> </ observationRange> </referenceRange> </observation> </ component> </organizer> </entry> <entry> <organizer moodCode="EVN" classCode="BATTERY"> <templateId root="11.03.840.1.477508.10..22.4.1" /> <id nullFlavor="NA" /> <code codeSystem="local" code="CFGLU" displayName="Glucose, CSF" /> <statusCode code="completed" /> < component> <observation moodCode="EVN" classCode="OBS"> < templateId root="16.840.1.093393.10..22.4.2" /> <id nullFlavor="NA " /> <code codeSystem="local" code="CFGLU" displayName="Glucose, CSF" / > <statusCode code="completed" /> <effectiveTime value= "682749290085" /> <value unit="mg/dL" xsi:type="PQ" value="62" /> <referenceRange> <observationRange> <text>40-70</ text> </observationRange> </referenceRange> </ observation> </component> </organizer> </entry> <entry> <organizer moodCode="EVN" classCode="BATTERY"> <templateId root= "16.840.1.958895.10..22.4.1" /> <id nullFlavor="NA" /> <code codeSystem="local" code="CFP" displayName="Protein, CSF" /> <statusCode code="completed" /> <component> <observation moodCode="EVN" classCode="OBS"> <templateId root="16.840.1.077016.07.07.22.4.2" /> <id nullFlavor="NA" /> <code codeSystem="local" code="CFP" displayName="Protein, CSF" /> <statusCode code="completed" /> <effectiveTime value="313285892069" /> <value unit="mg/dL" xsi:type="PQ " value="20" /> <referenceRange> <observationRange> <text>15-45</text> </observationRange> </ referenceRange> </observation> </component> </organizer> </entry > <entry> <organizer moodCode="EVN" classCode="BATTERY"> <templateId root="16.840.1.236678.07.07.22.4.1" /> <id nullFlavor="NA" /> <code codeSystem="local" code="CCELL" displayName="CSF Cell Count with Differential" / > <statusCode code="completed" /> <component> <observation moodCode="EVN" classCode="OBS"> <templateId root= "16.840.1.056511.10..22.4.2" /> <id nullFlavor="NA" /> < code codeSystem="local" code="CFAPP" displayName="Appearance, CSF" /> < statusCode code="completed" /> <effectiveTime value="000195666732" /> <value unit="NA" xsi:type="PQ" value="Clear" /> < referenceRange> <observationRange> <text /> < /observationRange> </referenceRange> </observation> </ component> <component> <observation moodCode="EVN" classCode="OBS"> <templateId root="216.840.1.187615.10.4.2" /> <id nullFlavor="NA" /> <code codeSystem="local" code="CFCOL" displayName= "Color, CSF" /> <statusCode code="completed" /> < effectiveTime value="" /> <value unit="NA" xsi:type="PQ" value="Colorless" /> <referenceRange> <observationRange> <text /> </observationRange> </referenceRange> </observation> </component> <component> <observation moodCode="EVN" classCode="OBS"> <templateId root= "16.840.1.646002.07.07.22.4.2" /> <id nullFlavor="NA" /> < code codeSystem="local" code="CFCO" displayName="Color, CSF Post Centrifugation " /> <statusCode code="completed" /> <effectiveTime value= "" /> <value unit="NA" xsi:type="PQ" value="Colorless" /> <referenceRange> <observationRange> <text /> </observationRange> </referenceRange> </observation> </component> <component> <observation moodCode="EVN" classCode= "OBS"> <templateId root="16.840.1.113466.07.07.22.4.2" /> < id nullFlavor="NA" /> <code codeSystem="local" code="CFVOL" displayName ="Volume, CSF" /> <statusCode code="completed" /> < effectiveTime value="" /> <value unit="mL" xsi:type="PQ" value="4.2" /> <referenceRange> <observationRange> <text /> </observationRange> </referenceRange> < /observation> </component> <component> <observation moodCode= "EVN" classCode="OBS"> <templateId root="840.1.650998.10.2022.4.2 " /> <id nullFlavor="NA" /> <code codeSystem="local" code= "CFMO" displayName="Mononuclear Cells, CSF" /> <statusCode code= "completed" /> <effectiveTime value="" /> <value unit="%" xsi:type="PQ" value="90" /> <referenceRange> < observationRange> <text /> </observationRange> </referenceRange> </observation> </component> <component> <observation moodCode="EVN" classCode="OBS"> <templateId root= "840.1.399854.1022.4.2" /> <id nullFlavor="NA" /> < code codeSystem="local" code="CFPOL" displayName="Polynuclear Cells, CSF" /> <statusCode code="completed" /> <effectiveTime value= "" /> <value unit="%" xsi:type="PQ" value="10" /> <referenceRange> <observationRange> <text /> </observationRange> </referenceRange> </observation> </component> <component> <observation moodCode="EVN" classCode="OBS "> <templateId root="840.1.488550.10.22.4.2" /> <id nullFlavor="NA" /> <code codeSystem="local" code="CFRBC" displayName= "RBC, CSF" /> <statusCode code="completed" /> <effectiveTime value="" /> <value unit="/mm3" xsi:type="PQ" value="1" /> <interpretationCode codeSystem="local" code="*" /> < referenceRange> <observationRange> <text /> < /observationRange> </referenceRange> </observation> </ component> <component> <observation moodCode="EVN" classCode="OBS"> <templateId root="216.840.1.643952.22.4.2" /> <id nullFlavor="NA" /> <code codeSystem="local" code="CFWBC" displayName= "WBC, CSF" /> <statusCode code="completed" /> <effectiveTime value="624829675747" /> <value unit="/mm3" xsi:type="PQ" value="1" /> <referenceRange> <observationRange> <text>0-10< /text> </observationRange> </referenceRange> </ observation> </component> </organizer> </entry> <entry> <organizer moodCode="EVN" classCode="BATTERY"> <templateId root= "16.840.1.349891.22.4.1" /> <id nullFlavor="NA" /> <code codeSystem="local" code="88489" displayName="COMPREHENSIVE METABOLIC PANEL" /> <statusCode code="completed" /> <component> <observation moodCode="EVN" classCode="OBS"> <templateId root= "216.840.1.223550.10..22.4.2" /> <id nullFlavor="NA" /> < code codeSystem="local" code="08110413" displayName="GLUCOSE" /> < statusCode code="completed" /> <effectiveTime value="409065846045" /> <value unit="mg/dL" xsi:type="PQ" value="75" /> < referenceRange> <observationRange> <text>65-99</text> </observationRange> </referenceRange> </observation> </component> <component> <observation moodCode="EVN" classCode= "OBS"> <templateId root="16.840.1.493115.10.20.22.4.2" /> < id nullFlavor="NA" /> <code codeSystem="local" code="94138036" displayName="UREA NITROGEN (BUN)" /> <statusCode code="completed" /> <effectiveTime value="314257343690" /> <value unit="mg/dL" xsi: type="PQ" value="12" /> <referenceRange> <observationRange> <text>7-25</text> </observationRange> </ referenceRange> </observation> </component> <component> <observation moodCode="EVN" classCode="OBS"> <templateId root= "11.03.840.1.983509.10.2022.4.2" /> <id nullFlavor="NA" /> < code codeSystem="local" code="79423141" displayName="CREATININE" /> < statusCode code="completed" /> <effectiveTime value="553763604849" /> <value unit="mg/dL" xsi:type="PQ" value="0.84" /> < referenceRange> <observationRange> <text>0.50-1.10</text > </observationRange> </referenceRange> </observation > </component> <component> <observation moodCode="EVN" classCode="OBS"> <templateId root="11.03.840.1.004451.10.20.22.4.2" /> <id nullFlavor="NA" /> <code codeSystem="local" code="70071044 " displayName="eGFR NON-AFR. CAMEROONIAN" /> <statusCode code="completed" /> <effectiveTime value="408009304034" /> <value unit="mL/min/ 1.73m2" xsi:type="PQ" value="86" /> <referenceRange> < observationRange> <text>> OR=60</text> </ observationRange> </referenceRange> </observation> </ component> <component> <observation moodCode="EVN" classCode="OBS"> <templateId root="216.840.1.989803.10..4.2" /> <id nullFlavor="NA" /> <code codeSystem="local" code="85753517" displayName ="eGFR " /> <statusCode code="completed" /> < effectiveTime value="996057802159" /> <value unit="mL/min/1.73m2" xsi: type="PQ" value="100" /> <referenceRange> <observationRange > <text>> OR=60</text> </observationRange> < /referenceRange> </observation> </component> <component> <observation moodCode="EVN" classCode="OBS"> <templateId root= "11.03.840.1.841816.10..4.2" /> <id nullFlavor="NA" /> < code codeSystem="local" code="36557340" displayName="BUN/CREATININE RATIO" /> <statusCode code="completed" /> <effectiveTime value= "966272215046" /> <value unit="(calc)" xsi:type="PQ" value="NOT APPLICABLE" /> <referenceRange> <observationRange> <text>6-22</text> </observationRange> </referenceRange > </observation> </component> <component> <observation moodCode="EVN" classCode="OBS"> <templateId root= "16.840.1.003175.10..4.2" /> <id nullFlavor="NA" /> < code codeSystem="local" code="23540786" displayName="SODIUM" /> < statusCode code="completed" /> <effectiveTime value="686653619348" /> <value unit="mmol/L" xsi:type="PQ" value="139" /> < referenceRange> <observationRange> <text>135-146</text> </observationRange> </referenceRange> </observation > </component> <component> <observation moodCode="EVN" classCode="OBS"> <templateId root="216.840.1.083431.10.2022.4.2" /> <id nullFlavor="NA" /> <code codeSystem="local" code="64154031 " displayName="POTASSIUM" /> <statusCode code="completed" /> < effectiveTime value="657557853752" /> <value unit="mmol/L" xsi:type="PQ " value="4.3" /> <referenceRange> <observationRange> <text>3.5-5.3</text> </observationRange> </ referenceRange> </observation> </component> <component> <observation moodCode="EVN" classCode="OBS"> <templateId root= "11.03.840.1.956312.1022.4.2" /> <id nullFlavor="NA" /> < code codeSystem="local" code="44107084" displayName="CHLORIDE" /> < statusCode code="completed" /> <effectiveTime value="943184803707" /> <value unit="mmol/L" xsi:type="PQ" value="101" /> < referenceRange> <observationRange> <text>98-110</text> </observationRange> </referenceRange> </observation> </component> <component> <observation moodCode="EVN" classCode ="OBS"> <templateId root="216.840.1.505266.10.20.22.4.2" /> < id nullFlavor="NA" /> <code codeSystem="local" code="69540974" displayName="CARBON DIOXIDE" /> <statusCode code="completed" /> <effectiveTime value="301514517990" /> <value unit="mmol/L" xsi:type ="PQ" value="30" /> <referenceRange> <observationRange> <text>20-31</text> </observationRange> </ referenceRange> </observation> </component> <component> <observation moodCode="EVN" classCode="OBS"> <templateId root= "216.840.1.040908.10.20.22.4.2" /> <id nullFlavor="NA" /> < code codeSystem="local" code="84786621" displayName="CALCIUM" /> < statusCode code="completed" /> <effectiveTime value="546739657779" /> <value unit="mg/dL" xsi:type="PQ" value="9.7" /> < referenceRange> <observationRange> <text>8.6-10.2</text > </observationRange> </referenceRange> </observation > </component> <component> <observation moodCode="EVN" classCode="OBS"> <templateId root="16.840.1.977258.10.20.22.4.2" /> <id nullFlavor="NA" /> <code codeSystem="local" code="35245976 " displayName="PROTEIN, TOTAL" /> <statusCode code="completed" /> <effectiveTime value="030417270641" /> <value unit="g/dL" xsi:type ="PQ" value="7.0" /> <referenceRange> <observationRange> <text>6.1-8.1</text> </observationRange> </ referenceRange> </observation> </component> <component> <observation moodCode="EVN" classCode="OBS"> <templateId root= "216.840.1.957399.10.2022.4.2" /> <id nullFlavor="NA" /> < code codeSystem="local" code="15453966" displayName="ALBUMIN" /> < statusCode code="completed" /> <effectiveTime value="867136119339" /> <value unit="g/dL" xsi:type="PQ" value="4.4" /> < referenceRange> <observationRange> <text>3.6-5.1</text> </observationRange> </referenceRange> </observation > </component> <component> <observation moodCode="EVN" classCode="OBS"> <templateId root="16.840.1.470414.10.22.4.2" /> <id nullFlavor="NA" /> <code codeSystem="local" code="42758006 " displayName="GLOBULIN" /> <statusCode code="completed" /> < effectiveTime value="431060495755" /> <value unit="g/dL(calc)" xsi:type ="PQ" value="2.6" /> <referenceRange> <observationRange> <text>1.9-3.7</text> </observationRange> </ referenceRange> </observation> </component> <component> <observation moodCode="EVN" classCode="OBS"> <templateId root= "11.03.840.1.966134.10.20.22.4.2" /> <id nullFlavor="NA" /> < code codeSystem="local" code="38579073" displayName="ALBUMIN/GLOBULIN RATIO" /> <statusCode code="completed" /> <effectiveTime value= "538845316202" /> <value unit="(calc)" xsi:type="PQ" value="1.7" /> <referenceRange> <observationRange> <text>1.0-2.5 </text> </observationRange> </referenceRange> </ observation> </component> <component> <observation moodCode= "EVN" classCode="OBS"> <templateId root="16.840.1.808540.10.22.4.2 " /> <id nullFlavor="NA" /> <code codeSystem="local" code= "80643337" displayName="BILIRUBIN, TOTAL" /> <statusCode code= "completed" /> <effectiveTime value="366789282839" /> <value unit="mg/dL" xsi:type="PQ" value="0.8" /> <referenceRange> < observationRange> <text>0.2-1.2</text> </ observationRange> </referenceRange> </observation> </ component> <component> <observation moodCode="EVN" classCode="OBS"> <templateId root="11.03.840.1.508388.07.07.22.4.2" /> <id nullFlavor="NA" /> <code codeSystem="local" code="57709124" displayName ="ALKALINE PHOSPHATASE" /> <statusCode code="completed" /> < effectiveTime value="658880520031" /> <value unit="U/L" xsi:type="PQ" value="88" /> <referenceRange> <observationRange> <text>33-115</text> </observationRange> </referenceRange > </observation> </component> <component> <observation moodCode="EVN" classCode="OBS"> <templateId root= "11.03.840.1.217104...4.2" /> <id nullFlavor="NA" /> < code codeSystem="local" code="97786117" displayName="AST" /> < statusCode code="completed" /> <effectiveTime value="328205645151" /> <value unit="U/L" xsi:type="PQ" value="14" /> <referenceRange > <observationRange> <text>10-30</text> </ observationRange> </referenceRange> </observation> </ component> <component> <observation moodCode="EVN" classCode="OBS"> <templateId root="216.840.1.571859.10..22.4.2" /> <id nullFlavor="NA" /> <code codeSystem="local" code="10036286" displayName ="ALT" /> <statusCode code="completed" /> <effectiveTime value ="489448617007" /> <value unit="U/L" xsi:type="PQ" value="14" /> <referenceRange> <observationRange> <text>6-29</text > </observationRange> </referenceRange> </observation > </component> </organizer> </entry> <entry> <organizer moodCode= "EVN" classCode="BATTERY"> <templateId root="11.03.840.1.200420.10..22.4.1 " /> <id nullFlavor="NA" /> <code codeSystem="local" code="46388" displayName="VITAMIN D, 25-HYDROXY, LC/MS/MS" /> <statusCode code= "completed" /> <component> <observation moodCode="EVN" classCode= "OBS"> <templateId root="11.03.840.1.659460.10..22.4.2" /> < id nullFlavor="NA" /> <code codeSystem="local" code="54091652" displayName="VITAMIN D,25-OH,TOTAL,IA" /> <statusCode code="completed" /> <effectiveTime value="751984789076" /> <value unit="ng/mL" xsi:type="PQ" value="19" /> <interpretationCode codeSystem="local" code ="*" /> <referenceRange> <observationRange> < text>30-100</text> </observationRange> </referenceRange> </observation> </component> </organizer> </entry> <entry> < organizer moodCode="EVN" classCode="BATTERY"> <templateId root= "11.03.840.1.533464.10..22.4.1" /> <id nullFlavor="NA" /> <code codeSystem="local" code="1759" displayName="CBC (H/H, RBC, INDICES, WBC, PLT)" / > <statusCode code="completed" /> <component> <observation moodCode="EVN" classCode="OBS"> <templateId root= "216.840.1.216276.10..22.4.2" /> <id nullFlavor="NA" /> < code codeSystem="local" code="51233603" displayName="WHITE BLOOD CELL COUNT" /> <statusCode code="completed" /> <effectiveTime value= "805972282108" /> <value unit="Thousand/uL" xsi:type="PQ" value="8.5" / > <referenceRange> <observationRange> <text>3.8 -10.8</text> </observationRange> </referenceRange> </ observation> </component> <component> <observation moodCode= "EVN" classCode="OBS"> <templateId root="11.03.840.1.065311.10.20.22.4.2 " /> <id nullFlavor="NA" /> <code codeSystem="local" code= "77385711" displayName="RED BLOOD CELL COUNT" /> <statusCode code= "completed" /> <effectiveTime value="022765621105" /> <value unit="Million/uL" xsi:type="PQ" value="4.62" /> <referenceRange> <observationRange> <text>3.80-5.10</text> </ observationRange> </referenceRange> </observation> </ component> <component> <observation moodCode="EVN" classCode="OBS"> <templateId root="16.840.1.782951.10.20.22.4.2" /> <id nullFlavor="NA" /> <code codeSystem="local" code="35479673" displayName ="HEMOGLOBIN" /> <statusCode code="completed" /> < effectiveTime value="150788399916" /> <value unit="g/dL" xsi:type="PQ" value="12.9" /> <referenceRange> <observationRange> <text>11.7-15.5</text> </observationRange> </ referenceRange> </observation> </component> <component> <observation moodCode="EVN" classCode="OBS"> <templateId root= "11.03.840.1.596483.10.20.22.4.2" /> <id nullFlavor="NA" /> < code codeSystem="local" code="51831106" displayName="HEMATOCRIT" /> < statusCode code="completed" /> <effectiveTime value="219660678339" /> <value unit="%" xsi:type="PQ" value="38.2" /> < referenceRange> <observationRange> <text>35.0-45.0</text > </observationRange> </referenceRange> </observation > </component> <component> <observation moodCode="EVN" classCode="OBS"> <templateId root="11.03.840.1.220883.10.20.22.4.2" /> <id nullFlavor="NA" /> <code codeSystem="local" code="57015191 " displayName="MCV" /> <statusCode code="completed" /> < effectiveTime value="981130944982" /> <value unit="fL" xsi:type="PQ" value="82.7" /> <referenceRange> <observationRange> <text>80.0-100.0</text> </observationRange> </ referenceRange> </observation> </component> <component> <observation moodCode="EVN" classCode="OBS"> <templateId root= "216.840.1.548553.10..4.2" /> <id nullFlavor="NA" /> < code codeSystem="local" code="79383734" displayName="[facility]" /> < statusCode code="completed" /> <effectiveTime value="203375438930" /> <value unit="pg" xsi:type="PQ" value="27.9" /> <referenceRange > <observationRange> <text>27.0-33.0</text> < /observationRange> </referenceRange> </observation> </ component> <component> <observation moodCode="EVN" classCode="OBS"> <templateId root="216.840.1.923454.07.07.22.4.2" /> <id nullFlavor="NA" /> <code codeSystem="local" code="46655012" [facility]Name =[facility]" /> <statusCode code="completed" /> <effectiveTime value="337961783124" /> <value unit="g/dL" xsi:type="PQ" value="33.8" / > <referenceRange> <observationRange> <text> 32.0-36.0</text> </observationRange> </referenceRange> </observation> </component> <component> <observation moodCode="EVN" classCode="OBS"> <templateId root= "216.840.1.250590.07.07.22.4.2" /> <id nullFlavor="NA" /> < code codeSystem="local" code="63884598" displayName="RDW" /> < statusCode code="completed" /> <effectiveTime value="486220290251" /> <value unit="%" xsi:type="PQ" value="13.4" /> < referenceRange> <observationRange> <text>11.0-15.0</text > </observationRange> </referenceRange> </observation > </component> <component> <observation moodCode="EVN" classCode="OBS"> <templateId root="2.16.840.1.757974.07.07.22.4.2" /> <id nullFlavor="NA" /> <code codeSystem="local" code="32059892 " displayName="PLATELET COUNT" /> <statusCode code="completed" /> <effectiveTime value="783890083164" /> <value unit="Thousand/uL" xsi:type="PQ" value="313" /> <referenceRange> < observationRange> <text>140-400</text> </ observationRange> </referenceRange> </observation> </ component> <component> <observation moodCode="EVN" classCode="OBS"> <templateId root="2.16.840.1.929270...4.2" /> <id nullFlavor="NA" /> <code codeSystem="local" code="38752108" displayName ="MPV" /> <statusCode code="completed" /> <effectiveTime value ="781726663306" /> <value unit="fL" xsi:type="PQ" value="11.4" /> <referenceRange> <observationRange> <text>7.5-12.5< /text> </observationRange> </referenceRange> </ observation> </component> </organizer> </entry> <entry> <organizer moodCode="EVN" classCode="BATTERY"> <templateId root= "11.03.840.1.245720.10.4.1" /> <id nullFlavor="NA" /> <code codeSystem="local" code="17303" displayName="TSH W/REFLEX TO FT4" /> < statusCode code="completed" /> <component> <observation moodCode= "EVN" classCode="OBS"> <templateId root="840.1.661729.07.07.22.4.2 " /> <id nullFlavor="NA" /> <code codeSystem="local" code= "56479164" displayName="TSH W/REFLEX TO FT4" /> <statusCode code= "completed" /> <effectiveTime value="259286409132" /> <value unit="mIU/L" xsi:type="PQ" value="1.78" /> <referenceRange> <observationRange> <text>NRG</text> </observationRange> </referenceRange> </observation> </component> </ organizer> </entry> <entry> <organizer moodCode="EVN" classCode="BATTERY"> <templateId root="11.03.840.1.528866.07.07.22.4.1" /> <id nullFlavor= "NA" /> <code codeSystem="local" code="7600" displayName="LIPID PANEL" /> <statusCode code="completed" /> <component> <observation moodCode="EVN" classCode="OBS"> <templateId root= "11.03.840.1.343270.07.07.22.4.2" /> <id nullFlavor="NA" /> < code codeSystem="local" code="91647108" displayName="CHOLESTEROL, TOTAL" /> <statusCode code="completed" /> <effectiveTime value= "160073652954" /> <value unit="mg/dL" xsi:type="PQ" value="227" /> <interpretationCode codeSystem="local" code="*" /> < referenceRange> <observationRange> <text><200</text> </observationRange> </referenceRange> </observation > </component> <component> <observation moodCode="EVN" classCode="OBS"> <templateId root="2.16.840.1.513048.10.20.22.4.2" /> <id nullFlavor="NA" /> <code codeSystem="local" code="92686573 " displayName="HDL CHOLESTEROL" /> <statusCode code="completed" /> <effectiveTime value="310579620474" /> <value unit="mg/dL" xsi: type="PQ" value="28" /> <interpretationCode codeSystem="local" code="* " /> <referenceRange> <observationRange> <text> >50</text> </observationRange> </referenceRange> < /observation> </component> <component> <observation moodCode= "EVN" classCode="OBS"> <templateId root="2.16.840.1.840251.10.20.22.4.2 " /> <id nullFlavor="NA" /> <code codeSystem="local" code= "60628541" displayName="TRIGLYCERIDES" /> <statusCode code="completed" /> <effectiveTime value="679493534309" /> <value unit="mg/dL" xsi:type="PQ" value="959" /> <interpretationCode codeSystem="local" code="*" /> <referenceRange> <observationRange> <text><150</text> </observationRange> </referenceRange > </observation> </component> <component> <observation moodCode="EVN" classCode="OBS"> <templateId root= "16.840.1.739688.10.20.22.4.2" /> <id nullFlavor="NA" /> < code codeSystem="local" code="77660693" displayName="LDL-CHOLESTEROL" /> <statusCode code="completed" /> <effectiveTime value="955371080097" /> <value unit="mg/dL(calc)" xsi:type="PQ" value="" /> < referenceRange> <observationRange> <text>NRG</text> </observationRange> </referenceRange> </observation> </component> <component> <observation moodCode="EVN" classCode= "OBS"> <templateId root="11.03.840.1.136438.10..4.2" /> < id nullFlavor="NA" /> <code codeSystem="local" code="85674060" displayName="CHOL/HDLC RATIO" /> <statusCode code="completed" /> <effectiveTime value="445536575108" /> <value unit="(calc)" xsi: type="PQ" value="8.1" /> <interpretationCode codeSystem="local" code="* " /> <referenceRange> <observationRange> <text> <5.0</text> </observationRange> </referenceRange> </observation> </component> <component> <observation moodCode= "EVN" classCode="OBS"> <templateId root="11.03.840.1.064680.10.22.4.2 " /> <id nullFlavor="NA" /> <code codeSystem="local" code= "84229916" displayName="NON HDL CHOLESTEROL" /> <statusCode code= "completed" /> <effectiveTime value="095016646361" /> <value unit="mg/dL(calc)" xsi:type="PQ" value="199" /> <interpretationCode codeSystem="local" code="*" /> <referenceRange> < observationRange> <text><130</text> </ observationRange> </referenceRange> </observation> </ component> </organizer> </entry></section> Encounters ACCT No. Visit Date/Time Discharge Status Pt. Type Provider Facility Loc./Unit Complaint [id number] 09/08/2014 11:02:00 09/08/2014 23:59:59 [facility] Outpatient [facility] [id number] 12/11/2017 13:00:00 12/11/2017 23:59:59 [facility] [id number] 12/11/2017 13:00:00 Document Registration [id number] 05/04/2013 18:13:00 05/04/2013 21:24:00 DIS Emergency Devin Zamora DO [facility] [id number] 03/20/2013 05:10:00 03/20/2013 07:20:00 DIS Emergency Riki Presley DO [facility] 10/31/2014 18:31:04 ACT Document Registration [id number] 03/09/2017 09:46:00 Document Registration [id number] 05/27/2018 11:29:00 05/27/2018 14:28:00 DIS Emergency Mike Howard [facility] ED CCC x 2 wks [id number] 03/09/2018 02:02:00 03/09/2018 04:05:00 DIS Emergency Zamora Jacob [facility] ED anxiety [id number] 12/06/2017 05:45:00 12/06/2017 09:19:00 DIS Emergency Starkey James [facility] ED anxiety [id number] 12/06/2017 05:16:00 12/06/2017 05:33:00 DIS Emergency Mike Howard [facility] ED anxiety [id number] 11/08/2017 05:56:00 11/08/2017 11:57:00 DIS Emergency Ryan Ruvalcaba [facility] ED body pain, anxiety [id number] 08/29/2017 06:47:00 08/29/2017 13:24:00 DIS Emergency Starkey James [facility] ED Chills, N/V [id number] 03/09/2017 09:46:00 03/09/2017 11:14:00 DIS Emergency Mike Howard [facility] ED fever, chills, body ache [id number] 05/28/2018 05:16:39 Document Registration [id number] 12/07/2017 05:17:29 Document Registration [id number] 08/30/2017 05:18:20 Document Registration [id number] 03/10/2017 05:16:43 Document Registration [id number] 07/08/2015 09:32:22 Document Registration [id number] 09/30/2013 14:14:00 09/30/2013 23:59:59 [facility] Outpatient [id number] 11/14/2015 11:53:00 11/14/2015 12:15:00 DIS Emergency Secrist [facility] W.EDW [id number] 10/31/2014 17:44:00 10/31/2014 19:06:00 DIS Emergency Secrist [facility] W.EDW [id number] 08/02/2014 14:37:00 08/04/2014 15:49:00 DIS Inpatient Malik PUCKETT, Jones Buenrostro [facility] W.7TS [id number] 05/06/2014 00:00:00 05/06/2014 00:00:00 CAN Outpatient Jake PUCKETT, Tresa Ponce [facility] W.PTW [id number] 08/30/2013 16:11:00 08/30/2013 18:34:00 DIS Emergency Riki Barrett DO [facility] W.EDN [id number] 08/30/2013 12:33:00 08/30/2013 12:33:00 DIS Outpatient Festus PUCKETT, Catherine Heard [facility] LUIS A [id number] 08/01/2013 11:35:00 08/01/2013 12:02:00 [facility]ION[facility] Emergency Secrist Flo IRELAND [facility] TOBY
[2018-11-29 12:58] LABS: BILIRUBIN,URINE NEGATIVE (NEGATIVE); CLARITY,URINE CLEAR; COLOR,URINE YELLOW; GLUCOSE, URINE (UA) NEGATIVE (NEGATIVE); KETONES,URINE NEGATIVE (NEGATIVE); LEUKOCYTE ESTERASE ,URINE 2+ (NEGATIVE); NITRITE,URINE NEGATIVE (NEGATIVE); PH,URINE 7 (5-9); PROTEIN,URINE NEGATIVE (NEGATIVE); UROBILINOGEN,URINE NORMAL (NORMAL)
[2018-11-29 13:05] LABS: BACTERIA,URINE FEW /HPF; SQUAMOUS EPITHELIAL CELL,UR 0-2 /HPF
--- NOTE | 2018-11-29 13:15 | NUR ---
BLADDER SCAN DONE ORDERED, PT HAS 3ML,5ML, AND 5ML ON 3 SEPARTE SCANS
[2018-11-29] MEDS ORDERED: HYOSCYAMINE 0.125 MG (LEVSIN) TAB SL ONE (13:30)
--- NOTE | 2018-11-29 14:01 | ED GU-Female ---
General Chief Complaint: -Female Stated Complaint: BLADDER INFECTION Nursing Triage Note: PT CO OF URINARY TRACT INFECTION SX, PAIN, BURNING, AND LOW GRADE TEMP Nursing Sepsis Screen: No Definite Risk Source: patient Exam Limitations: no limitations History of Present Illness Date Seen by Provider: Nov 29, 2018 Time Seen by Provider: 12:39 Initial Comments This 43-year-old woman presents to the emergency room with pain and burning with urination both superficially and within the pelvis. She has had subjective fevers at home. She reports a bit symptoms for about 6 months. She has urinary frequency and sometimes does not feel as though she completes her void. She has procrastinated in being assessed due to lack of insurance. However, she was sent home from work today because symptoms were making her feel weak and dizzy. She is very nauseated at times. She denies any intercourse for the past 3 years. She feels similar to when she has had prior infections. She has had a slight vaginal discharge for about one week and yet wonders about yeast infection. She often takes warm showers and soaks her perineal region which helps the pain. She has not established with a local primary care provider. Allergies and Home Medications Allergies Coded Allergies: No Known Drug Allergies (Unverified , 11/29/18) Home Medications Cephalexin 500 Mg Capsule, 500 MG PO QID Prescribed by: JULES WELLS on 11/29/18 1402 Hyoscyamine Sulfate 0.375 Mg Tab.er.12h, 0.375 MG PO TID PRN for CRAMPS Prescribed by: JULES WELLS on 11/29/18 1402 Patient Home Medication List Home Medication List Reviewed: Yes Review of Systems Review of Systems Constitutional: see HPI EENTM: no symptoms reported Respiratory: no symptoms reported Cardiovascular: see HPI Gastrointestinal: see HPI Genitourinary: see HPI : No Musculoskeletal: no symptoms reported Skin: no symptoms reported Psychiatric/Neurological: No Symptoms Reported Endocrine: No Symptoms Reported Hematologic/Lymphatic: No Symptoms Reported Past Psxxtes-Fzzhcj-Njdazn Hx Patient Social History Alcohol Use: Denies Use Recreational Drug Use: No Smoking Status: Never a Smoker Recent Foreign Travel: No Contact w/Someone Who Travel: No Recent Infectious Disease Expo: No Recent Hopitalizations: No Past Medical History Surgeries: Yes ([facility]) Bladder Surgery (bladder suspension 2), Hysterectomy Respiratory: No Cardiac: No Neurological: No [employer] History: Hysterectomy Genitourinary: Yes (history of urinary tract infections) Gastrointestinal: No Musculoskeletal: No Endocrine: No HEENT: No Cancer: No Psychosocial: No Integumentary: No Physical Exam Vital Signs Vital Signs - First Documented 11/29/18 12:40 Temp 97.9 Pulse 66 Resp 18 B/P (MAP) 115/87 (96) Pulse Ox 99 Capillary Refill : Less Than 3 Seconds Height, Weight, BMI Height: 5'4.00" Weight: 168lbs. oz. 76.313076eo; BMI Method:Stated General Appearance: WD/WN, no apparent distress HEENT: PERRL/EOMI, normal ENT inspection, pharynx normal Neck: normal inspection Cardiovascular: regular rate, rhythm, no edema, no murmur Respiratory: lungs clear, normal breath sounds, no respiratory distress, no accessory muscle use Gastrointestinal: normal bowel sounds, soft, tenderness (suprapubic region) Extremities: normal inspection, no pedal edema Neurologic/Psychiatric: child nurse II-XII nml as tested, no motor/sensory deficits, alert, normal mood/affect, oriented x 3 Skin: normal color, warm/dry Progress/Results/Core Measures Suspected Sepsis Recent Fever Within 48 Hours: No Infection Criteria Present: None New/Unexplained Altered Menta: No Sepsis Screen: No Definite Risk SIRS Temperature:97.9 Pulse: 66 Respiratory Rate: 18 Blood Pressure 115 /87 Mean: 96 Results/Orders Lab Results Laboratory Tests Test 11/29/18 12:50 Range/Units Urine Color YELLOW Urine Clarity CLEAR Urine pH 7 5-9 Urine Specific [place] 1.010 L 1.016-1.022 Urine Protein NEGATIVE NEGATIVE Urine Glucose (UA) NEGATIVE NEGATIVE Urine Ketones NEGATIVE NEGATIVE Urine Nitrite NEGATIVE NEGATIVE Urine Bilirubin NEGATIVE NEGATIVE Urine Urobilinogen NORMAL NORMAL MG/DL Urine Leukocyte Esterase 2+ H NEGATIVE Urine RBC (Auto) NEGATIVE NEGATIVE Urine RBC NONE /HPF Urine WBC 10-25 H /HPF Urine Squamous Epithelial Cells 0-2 /HPF Urine Crystals NONE /LPF Urine Bacteria FEW H /HPF Urine Casts NONE /LPF Urine Mucus NEGATIVE /LPF Urine Culture Indicated YES My Orders Orders - JULES METZ MD Hyoscyamine Sl Tablet (Levsin Sl Tablet) (11/29/18 13:30) Medications Given in ED Current Medications Medications Dose Ordered Sig/Jody Route Start Time Stop Time Status Last Admin Dose Admin Hyoscyamine Sulfate 0.25 mg ONCE ONCE SL 11/29/18 13:30 11/29/18 13:31 DC 11/29/18 13:37 0.25 MG Vital Signs/I&O 11/29/18 11/29/18 12:40 14:12 Temp 97.9 97.9 Pulse 66 66 Resp 18 18 B/P (MAP) 115/87 (96) 115/87 (96) Pulse Ox 99 99 Capillary Refill : Less Than 3 Seconds Blood Pressure Mean: 96 Progress Note : Progress Note UA was suggestive of urinary tract infection. She is being treated with Keflex. Symptoms of pelvic discomfort were suspicious for possible urinary retention. Bladder scan revealed no residual urine. Levsin was given for bladder spasm which did improve her pain. I offered the patient further workup with imaging, labs, and pelvic exam. She declines these things at this time. She would like to trial it antibiotics and Levsin before committing to a larger workup. She will try to follow-up at [facility] for a women's health visit and for follow-up on her pelvic issues. Departure Impression Primary Impression: Urinary tract infection Qualified Codes: N39.0 - Urinary tract infection, site not specified Additional Impressions: Pelvic pain Pelvic cramping Disposition: 01 HOME, SELF-CARE Condition: Improved Departure-Patient Inst. Decision time for Depature: 13:56 Patient Instructions: Urinary Tract Infection, Adult (DC) Add. Discharge Instructions: Drink plenty of clear liquids. Complete your antibiotic as prescribed. You may take Tylenol (acetaminophen) and/or ibuprofen for pain. Use the hyoscyamine as prescribed for cramping. Follow-up with a primary care provider soon as possible. You may call the [facility] at [phone]. I suggested that you have a follow-up appointment and schedule a women's health exam. Return to care if symptoms are worsening despite treatment. All discharge instructions reviewed with patient and/or family. Voiced understanding. Scripts Cephalexin (Keflex) 500 Mg Capsule 500 MG PO QID, #28 CAP Prov: JULES METZ MD 11/29/18 Hyoscyamine Sulfate (Hyoscyamine Sulfate ER) 0.375 Mg Tab.er.12h 0.375 MG PO TID PRN for CRAMPS, #30 TAB Prov: JULES METZ MD 11/29/18 JULES METZ MD Nov 29, 2018 14:01
[2018-11-29] MEDS ORDERED: HYOS0.3710 PO (14:02)
[2018-11-29] MEDS ORDERED: CEPH-507 PO (14:02)
[2018-11-29 14:12] VITALS: BP 115/87
== END 2018-11-29 14:12 | disposition home or self-care (01) ==
LOC: EDUNIT# 12:35 → ER 12:37
DX: N39.0 Urinary tract infection, site not specified (principal); Z98.890 Other specified postprocedural states; Z90.710 Acquired absence of both cervix and uterus
CPT/HCPCS: 81000; 87077; 87088; 87186; 99283

== ENCOUNTER 2019-03-06 18:06 | Emergency (ER) | payer SELFPAY ==
[~2019-03-06] VITALS: Ht 162.6 cm; Wt 79.4 kg
[~2019-03-06 18:06] MED LIST: CEPH-507 PO; HYOS0.3710 PO
[2019-03-06 18:43] LABS: BILIRUBIN,URINE NEGATIVE (NEGATIVE); CLARITY,URINE SLIGHTLY CLOUDY; COLOR,URINE YELLOW; GLUCOSE, URINE (UA) NEGATIVE (NEGATIVE); KETONES,URINE 1+ (NEGATIVE); LEUKOCYTE ESTERASE ,URINE 3+ (NEGATIVE); NITRITE,URINE NEGATIVE (NEGATIVE); PH,URINE 5 (5-9); PROTEIN,URINE 2+ (NEGATIVE); UROBILINOGEN,URINE 1 MG/DL (NORMAL)
[2019-03-06 18:54] LABS: BACTERIA,URINE TRACE /HPF; WBC,URINE >100 /HPF
[2019-03-06] MEDS ORDERED: ACETAMINOPHEN 325 MG TABLET PO STA (19:31)
[2019-03-06] MEDS ORDERED: TRIM/SULFAMETH 160/800 (SEPTRA DS) TAB PO STA (19:31)
[2019-03-06] MEDS ORDERED: ONDANSETRON 4 MG (ZOFRAN) ORAL DISSOLVE TAB SL STA (19:31)
--- NOTE | 2019-03-06 19:34 | ED GU-Female ---
General Chief Complaint: Abdominal/GI Problems Stated Complaint: ABD PAIN Nursing Triage Note: PT REPORTS ABD AND BACK PAIN THAT HAS BEEN SEVERE THE LAST TWO DAYS. PT REPORTS HAVING UTI FOR THE LAST YEAR AND UNABLE TO SEE UROLOGIST OR GET HER ANTIBIOTICS DUES TO FINANCIAL ISSUES. PT REPORTS BODY ACHES, CHILLS, DIARRHEA, VOMITING, AND CONSTANT NAUSEA. PT HAD APPT WITH [facility] TODAY BUT DAUGHTER GOT HOME FROM WORK LATE WITH THE CAR AND DID NOT MAKE APPT AND NO OTHER OPENINGS TODAY. Nursing Sepsis Screen: No Definite Risk History of Present Illness Date Seen by Provider: Mar 06, 2019 Time Seen by Provider: 19:20 Initial Comments 43-year-old female presents for persistent UTIs. Timing/Duration: yesterday Severity/Quality: moderate Location: suprapubic Radiation: none Prior Genitourinary Problems: similar symptoms Associated Symptoms: fever/chills, urinary frequency Allergies and Home Medications Allergies Coded Allergies: No Known Drug Allergies (Unverified , 03/06/19) Home Medications Cephalexin 500 Mg Capsule, 500 MG PO QID Prescribed by: JULES WELLS on 11/29/18 1402 Hyoscyamine Sulfate 0.375 Mg Tab.er.12h, 0.375 MG PO TID PRN for CRAMPS Prescribed by: JULES WELLS on 11/29/18 1402 Sulfamethoxazole/Trimethoprim 1 Each Tablet, 1 EACH PO BID Prescribed by: MÓNICA MEDELLIN on 03/06/19 193 Patient Home Medication List Home Medication List Reviewed: Yes Review of Systems Review of Systems Constitutional: no symptoms reported, see HPI Genitourinary: see HPI, dysuria, frequency, pain, urgency All Other Systemes Reviewed Negative Unless Noted: Yes Past Abmpiwg-Xoqudh-Hzlbhg Hx Past Med/Social Hx: Reviewed Nursing Past Med/Soc Hx Patient Social History Alcohol Use: Denies Use Recreational Drug Use: No Smoking Status: Never a Smoker Recent Foreign Travel: No Contact w/Someone Who Travel: No Recent Infectious Disease Expo: No Recent Hopitalizations: No Physical Abuse: No Sexual Abuse: No Past Medical History Surgeries: Yes ([facility]) Bladder Surgery, Hysterectomy Respiratory: No Cardiac: No Neurological: No 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 oz. 79.054255nh; BMI Method:Stated General Appearance: WD/WN, no apparent distress Cardiovascular: normal peripheral pulses, regular rate, rhythm Respiratory: chest non-tender, lungs clear, normal breath sounds Gastrointestinal: normal bowel sounds, non tender, soft; No distended, No g uarding, No rebound, No tenderness Back: normal inspection, no CVA tenderness Neurologic/Psychiatric: no motor/sensory deficits, alert, normal mood/affect, oriented x 3 Skin: normal color, warm/dry Progress/Results/Core Measures Suspected Sepsis Recent Fever Within 48 Hours: No Infection Criteria Present: None New/Unexplained Altered Menta: No Sepsis Screen: No Definite Risk SIRS Temperature:97.5 Pulse: 84 Respiratory Rate: 16 Blood Pressure 109 /72 Mean: 84 Results/Orders Lab Results Laboratory Tests Test 03/06/19 18:37 Range/Units Urine Color YELLOW Urine Clarity SLIGHTLY CLOUDY Urine pH 5 5-9 Urine Specific [place] 1.030 H 1.016-1.022 Urine Protein 2+ H NEGATIVE Urine Glucose (UA) NEGATIVE NEGATIVE Urine Ketones 1+ H NEGATIVE Urine Nitrite NEGATIVE NEGATIVE Urine Bilirubin NEGATIVE NEGATIVE Urine Urobilinogen 1 NORMAL MG/DL Urine Leukocyte Esterase 3+ H NEGATIVE Urine RBC (Auto) 1+ H NEGATIVE Urine RBC 2-5 H /HPF Urine WBC >100 H /HPF Urine Squamous Epithelial Cells 2-5 /HPF Urine Crystals NONE /LPF Urine Bacteria TRACE /HPF Urine Casts NONE /LPF Urine Mucus LARGE H /LPF Urine Culture Indicated YES My Orders Orders - MÓNICA MEDELLIN Ua Culture If Indicated (03/06/19 18:24) Urine Culture (03/06/19 18:37) Acetaminophen Tablet/Caplet (Tylenol T (03/06/19 19:31) Sulfamethoxazole/Trimet Ds Tab (Bactrim (03/06/19 19:31) Ondansetron Oral Dissolve Tab (Zofran (03/06/19 19:31) Vital Signs/I&O 03/06/19 03/06/19 18:30 19:40 Temp 97.5 97.5 Pulse 84 84 Resp 16 16 B/P (MAP) 109/72 (84) 109/72 (84) Pulse Ox 98 98 Capillary Refill : Less Than 3 Seconds Blood Pressure Mean: 84 Departure Impression Primary Impression: Urinary tract infection Qualified Codes: N30.01 - Acute cystitis with hematuria Disposition: HOME, SELF-CARE Condition: Improved Departure-Patient Inst. Decision time for Depature: 19:30 Referrals: [facility] (PCP/Family) Primary Care Physician Patient Instructions: Urinary Tract Infection, Adult (DC) Add. Discharge Instructions: Increase water intake, 8 ounces every 2 hours while awake. Empty bladder every 2 hours while awake. Drink 1 glass of cranberry juice or eat 1 cup of fresh blueberries daily. Follow-up with your primary care provider next week for further treatment. Take antibiotics as prescribed. You may alternate between Tylenol 650 mg and ibuprofen 600 mg for fever or pain. [facility] has a walk in clinic for non-emergency health care needs. Return to emergency department for new, urgent health care needs. All discharge instructions reviewed with patient and/or family. Voiced understanding. Scripts Sulfamethoxazole/Trimethoprim (Sulfamethoxazole-Tmp Ds Tablet) 1 Each Tablet 1 EACH PO BID, #14 TAB 0 Refills Prov: MÓNICA MEDELLIN 03/06/19 MÓNICA MEDELLIN Mar 06, 2019 19:34
[2019-03-06] MEDS ORDERED: SULF-222 PO (19:35)
[2019-03-06 19:40] VITALS: BP 109/72
--- OUTSIDE RECORDS SUMMARY | 2019-03-06 23:33 | XMS REPORT | Continuity of Care Document ---
Author Organization Unknown Address Unknown Allergies Active Description Code Type Severity Reaction Onset Reported/Identified Relationship to Patient Clinical Status Yes No Known Allergies Drug Allergy N/A N/A 05/04/2013 Yes No Known Drug Allergies Drug Allergy N/A N/A 05/04/2013 Yes No Known Food Allergies Food Allergy N/A N/A 05/04/2013 Yes No Known Allergies No Known Allergies Drug Allergy Unknown N/A 11/14/2015 Yes No Known Drug Allergies [id number] Drug Allergy Unknown N/A 03/06/2019 Medications There is no data. Problems Date Dx Coded Attending Type Code [...] PERSONAL HISTORY OF UNSPECIFIED MALIGNANT NEOPLASM 09/08/[facility] OBSERVATION OF OTHER SUSPECTED MENTAL CONDITION 11/29/2018 JULES METZ MD Ot N39.0 URINARY TRACT INFECTION, SITE NOT SPECIF 11/29/2018 JULES METZ MD T Ot R30.0 DYSURIA 11/29/2018 JULES METZ MD Ot Z90.710 ACQUIRED ABSENCE OF BOTH CERVIX AND UTER 11/29/2018 JULES METZ MD T Ot Z98.890 OTHER SPECIFIED POSTPROCEDURAL STATES 12/03/2018 JULES METZ MD Ot N39.0 URINARY TRACT INFECTION, SITE NOT SPECIF 12/03/2018 JULES METZ MD Ot R30.0 DYSURIA 12/03/2018 JULES METZ MD Ot Z90.710 ACQUIRED ABSENCE OF BOTH CERVIX AND UTER 12/03/2018 JULES METZ MD T Ot Z98.890 OTHER SPECIFIED POSTPROCEDURAL STATES 12/05/2018 JULES METZ MD Ot N39.0 URINARY TRACT INFECTION, SITE NOT SPECIF 12/05/2018 JULES METZ MD Ot R30.0 DYSURIA 12/05/2018 JULES METZ MD T Ot Z90.710 ACQUIRED ABSENCE OF BOTH CERVIX AND UTER 12/05/2018 JULES METZ MD T Ot Z98.890 OTHER SPECIFIED POSTPROCEDURAL STATES Procedures Code Description Performed By Performed On 86.59 CLOSURE SKIN SUBCUTANEOUS NEC Secpilart , Flo B 08/01/2013 S0281 MEDICAL HOME, MAINTENANCE 09/13/2014 Results Test Result Range CBC W/DIFF - 08/02/14 10:45 EOSINOPHIL # 0.2 k/cumm 0.1-0.5 EOSINOPHIL % 2 % 2-4 GRANULOCYTE # 5.0 k/cumm 2.0-9.0 GRANULOCYTE % 58 % 50-75 LYMPHOCYTE # 2.9 k/cumm 1.0-4.0 LYMPHOCYTE % 34 % 20-30 MEAN CELL HGB 28.0 pg 27.0-33.0 MEAN CELL HGB CONCENTRATION 34.3 g/dL 32.0-37.0 MEAN CELL VOLUME 81.5 fl 80.0-100.0 MONOCYTE # 0.6 k/cumm 0.1-1.0 MONOCYTE % 6 % 4-6 RED BLOOD CELL 4.65 m/cumm 4.00-6.00 RED CELL DISTRIBUTION WIDTH 13.1 % 11.0-15.6 WHITE BLOOD CELL 8.6 k/cumm 5.0-10.0 HEMOGLOBIN 13.0 gm/dL 12.0-16.0 HEMATOCRIT 37.9 % 37.0-47.0 PLATELET COUNT 252 k/cumm 150-450 URINALYSIS, ROUTINE - 08/02/14 10:45 UA LEUKOCYTE ESTERASE DIPSTICK NEGATIVE NEGATIVE UA NITRITE DIPSTICK NEGATIVE NEGATIVE UA PROTEIN DIPSTICK NEGATIVE NEGATIVE UA GLUCOSE DIPSTICK NEGATIVE NEGATIVE UA KETONE DIPSTICK NEGATIVE NEGATIVE UA UROBILINOGEN DIPSTICK NORMAL NORMAL UA BILIRUBIN DIPSTICK NEGATIVE NEGATIVE UA BLOOD DIPSTICK NEGATIVE NEGATIVE UA SPECIFIC GRAVITY 1.020 1.015-1.025 UR PH 5.0 5.0-7.0 METABOLIC PANEL, COMPREHN - 08/02/14 10:45 POTASSIUM 3.7 mmol/L 3.5-5.3 EST GFR (MDRD) > 60 mL/min > 59 ANION GAP 12 mmol/L 5-15 EST CrCl (CG) > 60 mL/min > 59 GLUCOSE 146 mg/dL 70-99 CALCIUM 8.6 mg/dL 8.5-10.1 BLOOD UREA NITROGEN 7 mg/dL 7-20 CREATININE 1.0 mg/dL 0.6-1.0 SODIUM 142 mmol/L 135-148 CHLORIDE 104 mmol/L 98-110 AST/SGOT 30 Units/L 10-37 ALT/SGPT 53 Units/L < 66 CARBON DIOXIDE 26 mmol/L 21-32 TOTAL PROTEIN 6.7 gm/dL 6.4-8.2 ALBUMIN 3.3 gm/dL 3.4-5.0 BILI TOTAL 0.7 mg/dL 0.0-1.0 ALKALINE PHOSPHATASE TOTAL 96 IU/L 45-117 LIPASE - 08/02/14 10:45 LIPASE 107 Units/L 73-393 C REACTIVE PROTEIN - 08/02/14 10:45 C REACTIVE PROTEIN 2.8 mg/L < 8.0 CAMPYLOBACTER ANTIGEN - 08/02/14 10:50 Microbiology STOOL LEUKOCYTES - 08/02/14 10:50 Microbiology CLOSTRIDIUM DIFFICILE DNA - 08/02/14 10:50 Microbiology THYROID STIM HORMONE (TSH) - 08/02/14 10:54 THYROID STIM HORMONE (TSH) 1.56 uIU/mL 0.34-4.82 SED RATE - 08/02/14 10:54 SED RATE 11 mm/hr 0-15 CBC W/DIFF - 08/03/14 05:48 COMMENT REVIEWED GRANULOCYTE # 8.8 k/cumm 2.0-9.0 GRANULOCYTE % 77 % 50-75 LYMPHOCYTE # 1.9 k/cumm 1.0-4.0 LYMPHOCYTE % 16 % 20-30 MEAN CELL HGB 27.1 pg 27.0-33.0 MEAN CELL HGB CONCENTRATION 33.0 g/dL 32.0-37.0 MEAN CELL VOLUME 82.0 fl 80.0-100.0 MONOCYTE # 0.7 k/cumm 0.1-1.0 MONOCYTE % 6 % 4-6 RED BLOOD CELL 4.51 m/cumm 4.00-6.00 RED CELL DISTRIBUTION WIDTH 12.8 % 11.0-15.6 WHITE BLOOD CELL 11.5 k/cumm 5.0-10.0 HEMOGLOBIN 12.2 gm/dL 12.0-16.0 HEMATOCRIT 37.0 % 37.0-47.0 PLATELET COUNT 255 k/cumm 150-400 RENAL FUNCTION PANEL - 08/03/14 05:48 POTASSIUM 4.8 mmol/L 3.5-5.3 EST GFR (MDRD) > 60 mL/min > 59 ANION GAP 7 mmol/L 5-15 EST CrCl (CG) > 60 mL/min > 59 GLUCOSE 135 mg/dL 70-99 CALCIUM 8.8 mg/dL 8.5-10.1 BLOOD UREA NITROGEN 4 mg/dL 7-20 CREATININE 0.8 mg/dL 0.6-1.0 SODIUM 143 mmol/L 135-148 CHLORIDE 110 mmol/L 98-110 CARBON DIOXIDE 26 mmol/L 21-32 ALBUMIN 3.0 gm/dL 3.4-5.0 PHOSPHORUS 2.5 mg/dL 2.5-4.9 MAGNESIUM - 08/03/14 05:48 MAGNESIUM 1.5 mg/dL 1.8-2.4 AB SACCHAROMYCES CEREVISIAE - 08/03/14 05:48 INTERPRETATION TEST NOT PERFORMED AB SACCHAROMYCES CEREVISIAE TEST NOT PERFORMED < 20 AB SACCHAROMYCES CEREVISIAE TEST NOT PERFORMED < 20 MRSA SURVEILLANCE SCREEN - 08/04/14 14:05 Microbiology Bacterial urine culture - 11/29/18 12:50 Bacterial urine culture SEE COMMEN NRG COLONY COUNT . NRG FTX;REPORTABLE SUSCEPTIBILITY REPORTED 12-01-181. NRG RML Sensitivity Panel - 11/29/18 12:50 Gentamicin susceptibility test by minimum inhibitory concentration <= NRG Trimethoprim/sulfamethoxazole susceptibility test by minimum inhibitoryconcentration > NRG Levofloxacin susceptibility test by minimum inhibitory concentration <= NRG Ampicillin susceptibility test by minimum inhibitory concentration > NRG Cefazolin susceptibility test by minimum inhibitory concentration <= NRG Ceftriaxone susceptibility test by minimum inhibitory concentration <= NRG Ciprofloxacin susceptibility test by minimum inhibitory concentration 1 NRG Meropenem susceptibility test by minimum inhibitory concentration <= NRG Nitrofurantoin susceptibility test by minimum inhibitory concentration <= NRG Amoxicillin and clavulanate potassium susc CIARA = NRG Complete urinalysis with reflex to culture - 03/06/19 18:37 Urine color determination YELLOW NRG Urine clarity determination SLIGHTLY CLOUDY NRG Urine pH measurement by test strip 5 5-9 Specific gravity of urine by test strip 1.030 1.016-1.022 Urine protein assay by test strip, semi-quantitative 2+ NEGATIVE Urine glucose detection by automated test strip NEGATIVE NEGATIVE Erythrocytes detection in urine sediment by light microscopy 1+ NEGATIVE Urine ketones detection by automated test strip 1+ NEGATIVE Urine nitrite detection by test strip NEGATIVE NEGATIVE Urine total bilirubin detection by test strip NEGATIVE NEGATIVE Urine urobilinogen measurement by automated test strip (mass/volume) 1 mg/dL NORMAL Urine leukocyte esterase detection by dipstick 3+ NEGATIVE Automated urine sediment erythrocyte count by microscopy (number/high power field) [HPF] NRG Automated urine sediment leukocyte count by microscopy (number/high power field) > [HPF] NRG Bacteria detection in urine sediment by light microscopy TRACE NRG Squamous epithelial cells detection in urine sediment by light microscopy 2-5 NRG Crystals detection in urine sediment by light microscopy NONE NRG Casts detection in urine sediment by light microscopy NONE NRG Mucus detection in urine sediment by light microscopy LARGE NRG Complete urinalysis with reflex to culture YES NRG Radiology Report from [facility] on 08/30/2013 14:40:00 DIAGNOSTIC IMAGING REPORT [facility] - [address] [address] PHONE #: [phone] FAX #: [phone] Name: GODWIN GAMA Loc: LUIS A Radiology No: : 1975 Age: 38 Sex: F Status: REG CLI Unit No: [id number] Phys: Catherine Hughes MD Acct: [id number] Reason For Exam: INCREASED PAIN DECREASED MOBILI Exam Date: 08/30/2013 EXAMS: CPT CODE: [id number] HAND RIGHT [id number] REASON FOR EXAM: INCREASED PAIN DECREASED MOBILITY. TIME OF EXAM: 08/30/2013 1:01 PM COMPARISON: None Findings: 3 views of left hand are obtained. There is no acute fracture or dislocation. Focal irregularity is seen at the distal interphalangeal joint of the right fifth finger. There is mild overlying soft tissue swelling. The bone density appears within normal limits. No radiopaque foreign body is visualized. Impression: 1. Focal irregularity along the articular surface of distal interphalangeal joint of right fifth finger. Monoarticular arthritis is in the differential diagnosis. Recommend clinical correlation to exclude possibility of septic arthritis. An attempt was made to call Dr. Catherine Mortensen at 2:30 PM on 08/30/2013. Report was fax[facility] Dr[facility] Mortensen [facility]. The findings were also discussed with NUBIA Cisneros at [facility] at 2:35 AM on 08/30/2013. at 5451 Reported and signed by: SHAKA ANDREWS MD CC: Catherine Mortensen MD Technologist: WILL KOCH Transcribed Date/Time: 08/30/2013 (2618)Customer Services Manager: KATHY Printed Date/Time: 08/30/2013 (1443) BATCH NO: N/A PAGE 1 Signed Report Radiology Report from [facility] on 08/02/2014 19:00:00 DIAGNOSTIC IMAGING REPORT [facility] - [address] [address] PHONE #: [phone] FAX #: [phone] Name: GODWIN GAMABECKI Loc: W.4725 1 Radiology No: : 1975 Age: 39 Sex: F Status: ADM IN Unit No: [id number] Phys: [facility] Aashish Bazan Acct: [id number] Reason For Exam: RECTAL BLEED. HX COLITIS. ROOM Exam Date: 08/02/2014 EXAMS: CPT CODE: [id number] CT ABD/PELVIS WITH CONTRAST [id number] DATE: 08/02/2014 12:18 PM REASON FOR EXAM: Rectal bleed, history of colitis COMPARISON: None. TECHNIQUE: Helical postcontrast and delayed images were obtained through the abdomen and pelvis. Sagittal and coronal reformatted images were also reviewed. FINDINGS: CT Abdomen: The heart is unremarkable. The included lung bases show no focal consolidation. The liver, spleen, pancreas, adrenal glands, and kidneys have a normal appearance. Surgical clips are seen in the gallbladder fossa. The common bile duct appears prominent but this is not unexpected given cholecystectomy. There is no pathologically enlarged mesenteric or retroperitoneal adenopathy. The bowel loops are nondilated. The appendix is visualized and appears normal. There is no free fluid or free air. The sigmoid colon appears redundant and demonstrates mild thickening and mucosal enhancement with prominent surrounding vascularity. Trace free fluid is seen in the left lower pelvis, adjacent to the sigmoid colon. CT Pelvis: Ureters and bladder are grossly normal. There is no free air, loculated collection, or adenopathy in the pelvis. The osseous structures of the abdomen and pelvis show no acute abnormalities. IMPRESSION: 1. Findings consistent with sigmoid colitis. This may be infectious or inflammatory in nature. 2. Trace free fluid in the pelvis. No loculated fluid collection to suggest abscess. Findings were discussed with Dr. Bazan on 08/02/2014 12:58 PM. I have personally reviewed these images and approved or corrected the resident physician's interpretation. PAGE 1 Signed Report (CONTINUED) DIAGNOSTIC IMAGING REPORT [facility] - [address] [place] [address] PHONE #: [phone] FAX #: [phone] Name: GODWIN GAMA Loc: W.4725 1 Radiology No: : 1975 Age: 39 Sex: F Status: ADM IN Unit No: [id number] Phys: Aashish Miranda Acct: [id number] Reason For Exam: RECTAL BLEED. HX COLITIS. ROOM Exam Date: 08/02/2014 EXAMS: CPT CODE: [id number] CT ABD/PELVIS WITH CONTRAST 00715 <Continued> at 4863 RESIDENT: JEREMY DIGGS DO Reported and signed by: NEAL SOTELO JR., MD CC: Technologist: PHYLLIS OLSON Transcribed Date/Time: 08/02/2014 (8919)Customer Services Manager: ANDERSON Printed Date/Time: 08/02/2014 (6430) BATCH NO: N/A PAGE 2 Signed Report Encounters ACCT No. Visit Date/Time Discharge Status Pt. Type Provider Facility Loc./Unit Complaint [id number] 09/08/2014 11:02:00 09/08/2014 23:59:59 CLS Outpatient [facility] [id number] 05/04/2013 18:13:00 05/04/2013 21:24:00 DIS Emergency Noah DODevin Minh [facility] [id number] 03/20/2013 05:10:00 03/20/2013 07:20:00 DIS Emergency Fernandez DO Riki Barrios [facility] TERM [id number] 09/30/2013 14:14:00 09/30/2013 23:59:59 CLS Outpatient [id number] 03/06/2019 18:07:00 03/06/2019 19:40:00 DIS Emergency VIGNESHMÓNICA [employer] [facility] ER ABD PAIN [id number] 11/29/2018 12:37:00 11/29/2018 14:12:00 DIS Emergency ISAÍAS PUCKETT, JULES Oropeza [facility] ER BLADDER INFECTION [id number] 11/14/2015 11:53:00 11/14/2015 12:15:00 DIS Emergency Secrist DO [facility] W.EDW [id number] 10/31/2014 17:44:00 10/31/2014 19:06:00 DIS Emergency Secrist DO [facility] W.EDW [id number] 08/02/2014 14:37:00 08/04/2014 15:49:00 DIS Inpatient Malik PUCKETT, Jones [facility] W.7TS [id number] 05/06/2014 00:00:00 05/06/2014 00:00:00 CAN Outpatient Jake PUCKETT, Tresa Ponce [facility] W.PTW [id number] 08/30/2013 16:11:00 08/30/2013 18:34:00 DIS Emergency Riki Barrett DO [facility] W.EDN [id number] 08/30/2013 12:33:00 08/30/2013 12:33:00 DIS Outpatient Festus PUCKETT, Catherine Heard [facility] W.RAD [id number] 08/01/2013 11:35:00 08/01/2013 12:02:00 DIS Emergency Flo Porter DO [facility] W.EDW
== END 2019-03-06 19:40 | disposition home or self-care (01) ==
LOC: EDUNIT# 18:06 → ER 18:07
DX: N39.0 Urinary tract infection, site not specified (principal); Z90.710 Acquired absence of both cervix and uterus; Z98.890 Other specified postprocedural states
CPT/HCPCS: 81000; 87088; 99283

== ENCOUNTER 2021-08-13 18:28 | Emergency (ER) | payer BC ==
[~2021-08-13 18:28] MED LIST changes: +SULF-222 PO
--- OUTSIDE RECORDS SUMMARY | 2021-08-13 18:32 | XMS REPORT | Clinical Summary ---
Demographics Home Phone Preferred Language Unknown Marital Status Unknown Moravian Affiliation Unknown Race Unknown Ethnic Group Unknown Author Author [facility] Organization [facility] Address Unknown Phone Unavailable Care Team Providers Care Fiber Optic Technician Name Role Phone PCP Unavailable Source Comments Some departments are not documenting in the electronic medical record. If you d o not see the information that you expected, contact Release of Information in [facility] Information Management department at [phone] for further assistan ce in locating additional records.[facility] Allergies Not on File Medications Not on file Active Problems Not on file Social History Date Tobacco Use Types Packs/Day Years Used Never Assessed Sex Assigned at Date Recorded Not on file Last Filed Vital Signs Not on file Plan of Treatment Health Maintenance Due Date Last Done Comments HIV SCREENING 1991 DTAP/TDAP VACCINES (1 - 1994 Tdap) HEPATITIS C SCREENING 1994 PHYSICAL (COMPREHENSIVE) 1994 EXAM CERVICAL CANCER SCREENING 1997 BREAST CANCER SCREENING 2016 INFLUENZA VACCINE 04/18/2021 Results Not on filefrom Last 3 Months
--- OUTSIDE RECORDS SUMMARY | 2021-08-13 18:32 | XMS REPORT ---
Author Author [facility] Organization [facility] Address Unknown Phone Unavailable Care Team Providers Care Switch Inspector Name Role Phone Connor Lakia Unavailable PROBLEMS Type Condition ICD9-CM Code [id number] Code Onset Dates Condition S tatus W/U Status Risk SNOMED Code Notes Problem Panic disorder [episodic paroxysmal anxiety] F41.0 Active confirmed [id number] ALLERGIES No Known Allergies ENCOUNTERS from 1975 to 2021-07-17 Encounter Location Date Provider Diagnosis [address] [address] [id number] [address] Nov, Lakia Ryan IMMUNIZATIONS No Information SOCIAL HISTORY Tobacco Use: Social History Observation Description Date Details (start date - stop date) Never Smoker Sex Assigned At : Social History Observation Description Sex Assigned At Unknown Sexual History: Question Answer Notes Had sex in the past 12 months(vaginal,oral or anal) No LMP: 09/18/1999 Have you ever had an STD? No Alcohol Question Answer Notes How often did you have a drink containing alcohol in the pas t year? No Points 0 Interpretation Negative Smoking Status Question Answer Notes Are you a: never smoker REASON FOR REFERRAL No Information VITAL SIGNS No information MEDICATIONS Medication SIG (Take, Route, Frequency, Duration) Notes Start Da te End Date Status Multivitamins - 1 tablet Orally Once a day Active LORazepam 1 MG 1 tablet at bedtime as neede d Orally three times a day PRN for anxiety Active PROCEDURES No Information RESULTS No Results REASON FOR VISIT Labs/lvm* MEDICAL (GENERAL) HISTORY Type Description Date Surgical History hysterectomy 1999 Surgical History lumpectomy left Breast 2003 Surgical History Cholecystectomy 2012 Goals Section No Information Health Concerns No Information MEDICAL EQUIPMENT No Information MENTAL STATUS No Information FUNCTIONAL STATUS No Information ASSESSMENTS No Information PLAN OF TREATMENT No Information Insurance Providers Payer Name Payer Address Payer Phone Insured Name Patient Relati onship to Insured Coverage Start Date [facility]age End [facility] [address] [address] [facility] [address] Cristiane Joyner self
--- OUTSIDE RECORDS SUMMARY | 2021-08-13 18:32 | XMS REPORT ---
Author Author [facility] Organization [facility] Address Unknown Phone Unavailable Care Team Providers Care Instructor Creeler Name Role Phone Lakia Ryan Unavailable PROBLEMS Type Condition ICD9-CM Code QNI42-LF Code Onset Dates Condition S tatus W/U Status Risk SNOMED Code Notes Problem Panic disorder [episodic paroxysmal anxiety] F41.0 Active confirmed [id number] ALLERGIES No Known Allergies ENCOUNTERS from 1975 to 2021-07-17 Encounter Location Date Provider Diagnosis [id number] [address] [address] Nov, Lakia Ryan Panic disorder [epis odic paroxysmal anxiety] F41.0 and Encounter for screening for lipoid disorders Z13.220 IMMUNIZATIONS No Information SOCIAL HISTORY Tobacco Use: [...] REASON FOR REFERRAL No Information VITAL SIGNS Height 64.5 in Nov, Weight 159.5 lbs Nov, BMI 26.95 kg/m2 Nov, Heart Rate 63 /min Nov, Temperature 98.4 degrees Fahrenheit Nov, Blood pressure systolic 114 mm Hg Nov, Blood pressure diastolic 74 mm Hg Nov, MEDICATIONS Medication SIG (Take, Route, Frequency, Duration) Notes Start Da te End Date Status Multivitamins - 1 tablet Orally Once a day Active LORazepam 1 MG 1 tablet at bedtime as neede d Orally three times a day PRN for anxiety Active PROCEDURES No Information RESULTS Component Value Reference Range COMPREHENSIVE METABOLIC PANEL Reviewed date:12/12/2017 07:53:01 Interpretation:Normal Performing Lab: GLUCOSE 75 65-99 UREA NITROGEN (BUN) 12 7-25 CREATININE 0.84 0.50-1.10 eGFR NON-AFR. TRISTANIAN 86 > OR = 60 eGFR 100 > OR = 60 BUN/CREATININE RATIO NOT APPLICABLE 6-22 SODIUM 139 135-146 POTASSIUM 4.3 3.5-5.3 CHLORIDE 101 98-110 CARBON DIOXIDE 30 20-31 CALCIUM 9.7 8.6-10.2 PROTEIN, TOTAL 7.0 6.1-8.1 ALBUMIN 4.4 3.6-5.1 GLOBULIN 2.6 1.9-3.7 ALBUMIN/GLOBULIN RATIO 1.7 1.0-2.5 BILIRUBIN, TOTAL 0.8 0.2-1.2 ALKALINE PHOSPHATASE 88 33-115 AST 14 10-30 ALT 14 6-29 VITAMIN D, 25-HYDROXY, LC/MS/MS Reviewed date:12/12/2017 07:53:01 Interpretation:19L Performing Lab: VITAMIN D,25-OH,TOTAL,IA 19 30-100 CBC (H/H, RBC, INDICES, WBC, PLT) Reviewed date:12/12/2017 07:53:01 Interpretation:Normal Performing Lab: WHITE BLOOD CELL COUNT 8.5 3.8-10.8 RED BLOOD CELL COUNT 4.62 3.80-5.10 HEMOGLOBIN 12.9 11.7-15.5 HEMATOCRIT 38.2 35.0-45.0 MCV 82.7 80.0-100.0 MCH 27.9 27.0-33.0 MCHC 33.8 32.0-36.0 RDW 13.4 11.0-15.0 PLATELET COUNT 313 140-400 MPV 11.4 7.5-12.5 TSH W/REFLEX TO FT4 Reviewed date:12/12/2017 07:53:01 Interpretation:Normal Performing Lab: TSH W/REFLEX TO FT4 1.78 LIPID PANEL Reviewed date:12/12/2017 07:53:07 Interpretation:2.2% Performing Lab: CHOLESTEROL, TOTAL 227 <200 HDL CHOLESTEROL 28 >50 TRIGLYCERIDES 959 <150 LDL-CHOLESTEROL CHOL/HDLC RATIO 8.1 <5.0 NON HDL CHOLESTEROL 199 <130 REASON FOR VISIT Establish Care, panic attacks // ivalladaresma MEDICAL (GENERAL) HISTORY Type Description Date Surgical History hysterectomy 1999 Surgical History lumpectomy left Breast 2002 Surgical History Cholecystectomy 2011 Goals Section No Information Health Concerns No Information MEDICAL EQUIPMENT No Information MENTAL STATUS No Information FUNCTIONAL STATUS No Information ASSESSMENTS Encounter Date Diagnosis Assessment Notes Treatment Notes Treatm ent Clinical Notes Nov, Panic disorder [episodic paroxysmal anxiety] (IC D-10 - F41.0) Spoke with patient in detail about [facility]. She has agreed to leave here and go directly there for eval. Will draw labs today and call her with results when available. Patient voiced understanding. Nov, Encounter for screening for lipoid disorders (IC D-10 - Z13.220) Check Lipids and call patient with results when available. PLAN OF TREATMENT Treatment Notes Assessment Notes Clinical Notes Panic disorder [episodic paroxysmal anxiety] Spoke wit h patient in detail about [facility].She has agreed to leave here and go directly there for eval.Will draw labs today and call her with results when available.Patient voiced understanding. Encounter for screening for lipoid disorders Check Lip ids and call patient with results when available. Next Appt Details prn Reason: Insurance Providers Payer Name Payer Address Payer Phone Insured Name Patient Relati onship to Insured Coverage Start Date Coverage End Date [facility] [address] [address] [facility] [id number] Cristiane Joyner self
--- OUTSIDE RECORDS SUMMARY | 2021-08-13 18:32 | XMS REPORT ---
Author Cristiane Nathan [facility] Address [address] [place], [place] [id number] Care Team Providers Care Erp Pm Name Role Phone GRANT ANTONIO PCP GRANT ANTONIO PreferredProvider Allergies and Adverse Reactions Not available. Plan of Treatment Planned Activity Comments Planned Date Planned Time Plan/Goal CBC with Differential 07/23/2021 12:00 AM CMP 07/23/2021 12:00 AM Lipid Blood Profile 07/23/2021 12:00 AM Medications Active Name Start Date Estimated Completion Date SIG Co mments diazepam 5 mg oral tablet 06/17/2021 1/2 to 1 tablet by oral route 2 times per day PRN anxiety phentermine 37.5 mg oral tablet 07/23/2021 take one-half tablet (18.75 mg) by oral route once daily before breakfast Problem List Not available. Vital Signs Date Time BP-Sys(mm[Hg] BP-Iliana(mm[Hg]) HR(bpm) RR(rpm) Temp WT HT HC BMI BSA BMI Percentile O2 Sat(%) 03/10/2021 10:23:00 AM 120 mm[Hg] 75 mm[Hg] 80 {beats}/min 18 rpm 98.5 F 185 lbs 63 in 32.7709 kg/m2 1.9313 m2 96 % 11/04/2020 8:49:00 AM 118 mm[Hg] 80 mm[Hg] 75 {beats}/min 18 rpm 97.9 F 185.187 lbs 63 in 32.80 kg/m2 1.93 m2 96 % Social History Name Description Comments smoking History of Procedures Date Ordered Description Order Status 12/18/2020 12:00 AM Moderna Covid-19 Vaccine Reviewed Results Summary Not available. History Of Immunizations Name Date Admin Mfg Name Mfg Code Trade Name Lot# Route Inj Vis Given Vis Pub CVX Covid-19 12/18/2020 [employer] MOD Moderna COVID-19 Vaccin e [id number] Intramuscular Left Deltoid 12/18/2020 08/18/2020 207 History of Past Illness Name Date of Onset Comments Anxiety Nov 04 2020 8:50AM Panic attacks Nov 04 2020 8:50AM Medication management Nov 04 2020 8:50AM Establishing care with new doctor, encounter for Nov 04 2020 8:50AM Encounter for administration of COVID-19 vaccine Dec 18 2020 2:28PM Polyphagia Jun 22 2021 3:55PM Low self esteem Jun 22 2021 3:55PM Medication management Jun 22 2021 3:55PM Hyperlipemia Jul 23 2021 9:45AM prison current use of non-steroidal anti-inflammato bambi (NSAID) Jul 23 2021 9:45AM Fatigue Jul 23 2021 9:45AM Payers Insurance Name Company Name Plan Name Plan Number Policy Number Pavel [employer] Group [id number]/ A History of Encounters Visit Date Visit Type Provider 07/23/2021 Laboratory GRANT MANCIA 06/22/2021 Office visit GRANT MANCIA 12/18/2020 Nurse visit Barbara Gallagher APR N 11/04/2020 Office visit GRANT MANCIA
--- OUTSIDE RECORDS SUMMARY | 2021-08-13 18:32 | XMS REPORT ---
Author Cristiane Nathan [facility] Address [address] [place], [place] [id number] Care Team Providers Care Insole Bottom Filler Name Role Phone GRANT ANTONIO PCP GRANT ANTONIO PreferredProvider Allergies and Adverse Reactions Not available. Plan of Treatment Not available. Medications Active Name Start Date Estimated Completion Date SIG Co mments diazepam 5 mg oral tablet 06/17/2021 1/2 to 1 tablet by oral route 2 times per day PRN anxiety phentermine 37.5 mg oral tablet 06/22/2021 take one-half tablet (18.75 mg) by oral [...] Vis Given Vis Pub CVX Covid-19 12/18/2020 Modern[employer] MOD Moderna COVID-19 Vaccin e [id number] Intramuscular Left Deltoid 12/18/2020 08/18/2020 207 History [...] 3:55PM Medication management Jun 22 2021 3:55PM Payers Insurance Name Company Name Plan Name Plan Number Policy Number [employer] [id number]/ A History of Encounters Visit Date Visit Type Provider 06/22/2021 Office visit GRANT MANCIA 12/18/2020 Nurse visit Barbara Gallagher APR N 11/04/2020 Office visit GRANT MANCIA
[2021-08-13] MEDS ORDERED: ONDA4TAB11 PO (18:43)
[2021-08-13] MEDS ORDERED: AMOX500C2 PO (18:43)
--- NOTE | 2021-08-13 18:43 | ED EENT ---
History of Present Illness General Stated Complaint: TOOTH PAIN Source: patient Exam Limitations: no limitations History of Present Illness Date Seen by Provider: Aug 13, 2021 Time Seen by Provider: 18:27 Initial Comments Patient to the ER by private conveyance from home with chief complaint of fracturing a tooth yesterday on her left anterior mandible. Today she started having increasing swelling pain and nausea. She been using ibuprofen 800 mg every 6 hours. She has not been using Tylenol. She has been using Orajel. She has an appointment tomorrow morning at 730 with a dentist. She is not on antibiotics. She says the pain is so great is making her nauseated. Allergies and Home Medications Allergies Coded Allergies: No Known Drug Allergies (Unverified , 03/06/19) Patient Home Medication List Home Medication List Reviewed: Yes Cephalexin (Keflex) 500 Mg Capsule, 500 MG PO QID Prescribed by: JULES WELLS on 11/29/18 1402 Hyoscyamine Sulfate (Hyoscyamine Sulfate ER) 0.375 Mg Tab.er.12h, 0.375 MG PO TID PRN for CRAMPS Prescribed by: JULES WELLS on 11/29/18 1402 Sulfamethoxazole/Trimethoprim (Sulfamethoxazole-Tmp Ds Tablet) 1 Each Tablet, 1 EACH PO BID Prescribed by: MÓNICA MEDELLIN on 03/06/19 193 Review of Systems Review of Systems Constitutional: No chills, No diaphoresis Eyes: Denies Blindness, Denies Blurred Vision Ears: Denies Dizziness, Denies Pain Nose: denies clots, denies congestion Mouth: see HPI; denies clots; pain, swelling Throat: denies pain, denies swelling : No Musculoskeletal: No back pain, No joint pain All Other Systems Reviewed Negative Unless Noted: Yes Past Fploenp-Itiwwo-Hcccef Hx Patient Social History Tobacco Use?: No Use of E-Cig and/or Vaping dev: No Substance use?: No Past Medical History Surgeries: Yes ([facility]) Bladder Surgery, Hysterectomy Respiratory: No Cardiac: No Neurological: No 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 oz. 79.212669qu; BMI Method:Stated General Appearance: WD/WN, mild distress Eyes: bilateral eye normal inspection, bilateral eye PERRL, bilateral eye EOMI Ears: bilateral ear auricle normal, bilateral ear canal normal, bilateral ear TM normal Nose: normal inspection; No active bleeding Mouth/Throat: other (swelling red non indurated leftr mandible 1.5 cm daimeter assoc with fractured tooth. ) Neck: non-tender, full range of motion Cardiovascular: normal peripheral pulses, regular rate, rhythm Respiratory: lungs clear, normal breath sounds, no respiratory distress, no accessory muscle use Progress/Results/Core Measures Results/Orders My Orders Orders - MARK MARCANO Ondansetron Oral Dissolve Tab (Zofran (08/13/21 18:45) Lidocaine 2% Viscous 15 Ml (Xylocaine Vi (08/13/21 18:45) Progress Progress Note : Time: 18:41 Progress Note Zofran, viscous lidocaine, amoxicillin Departure Impression Primary Impression: Tooth fracture Qualified Codes: S02.5XXB - Fracture of tooth (traumatic), initial encounter for open fracture Additional Impression: Dental abscess Disposition: 01 HOME, SELF-CARE Condition: Stable Departure-Patient Inst. Decision time for Depature: 18:41 Referrals: [facility] [place] ([place]) Primary Care Physician Patient Instructions: Dental Pain (DC) Add. Discharge Instructions: Amoxicillin 2 capsules twice a day for the next 10 days. Tomorrow follow-up with a dentist. Zofran 1 tablet under the tongue every 6 hours as necessary for nausea or vomiting. Of a Profen 800 mg every 8 hours as necessary for pain. Tylenol 1000 mg every 8 hours as necessary for pain. Viscous lidocaine 5 cc applied to gauze directly over the tooth in question e very 6 hours as necessary. Keep the gauze in place for 30 to 60 minutes without drinking or eating. After that you may use Orajel. Warm, moist heat applied directly to the jaw can also help alleviate pain. Scripts Amoxicillin (Amoxicillin) 500 Mg Capsule 1000 MG PO BID for 10 Days, #40 CAP 0 Refills Prov: MARK MARCANO 08/13/21 Ondansetron (Ondansetron Odt) 4 Mg Tab.rapdis 4 MG PO Q6H PRN for NAUSEA/VOMITING, #12 TAB 0 Refills Prov: MARK MARCANO 08/13/21 MARK MARCANO Aug 13, 2021 18:43
[2021-08-13] MEDS ORDERED: ONDANSETRON 4 MG (ZOFRAN) ORAL DISSOLVE TAB PO ONE (18:45)
[2021-08-13] MEDS ORDERED: LIDOCAINE 2% VISCOUS 15 ML UDC PO ONE (18:45)
[2021-08-13 18:51] VITALS: BP 132/75
== END 2021-08-13 18:51 | disposition home or self-care (01) ==
LOC: EDUNIT# 18:28 → ER 18:30
DX: S02.5XXA Fracture of tooth (traumatic), initial encounter for closed fracture (principal); K04.7 Periapical abscess without sinus; X58.XXXA Exposure to other specified factors, initial encounter
CPT/HCPCS: 99283

== ENCOUNTER 2021-11-02 22:19 | Emergency (ER) | payer BC, OTHER ==
[~2021-11-02 22:19] MED LIST changes: +AMOX500C2 PO; +ONDA4TAB11 PO
== END 2021-11-02 22:45 | disposition left against medical advice (07) ==
LOC: EDUNIT# 22:19 → ER 22:23
DX: U07.1 COVID-19 (principal)

== ENCOUNTER → 2022-01-19 | Outpatient (CLI) | payer OTHER ==
[~2022-01-19] MED LIST changes: +BUPR1FIL3 SL; +CITA40TA19 PO; +CLN.1T PO; +DOCU-163 PO; +ESTR1TAB18 PO; +FOLI1TAB57 PO; -HYOS0.3710 PO; +HYOS0.3738 PO; +PHEN37.582 PO; +POLY17PO6 PO
== END | disposition home or self-care (01) ==
LOC: PREOP 15:32
PROVIDERS: ATTEND Surgery
DX: Z01.818 Encounter for other preprocedural examination (principal)

== ENCOUNTER 2022-01-20 09:04 | Day surgery (SDC) | payer OTHER ==
[~2022-01-20] VITALS: Ht 160 cm; Wt 74.5 kg
[2022-01-20] VITALS (12 sets, daily range): BP systolic 84–113; BP diastolic 46–72
[~2022-01-20 09:04] MED LIST changes: -BUPR1FIL3 SL; -CITA40TA19 PO; -CLN.1T PO; -DOCU-163 PO; -ESTR1TAB18 PO; -FOLI1TAB57 PO; -PHEN37.582 PO; -POLY17PO6 PO
[2022-01-20] MEDS ORDERED: CITA40TA19 PO (09:33)
[2022-01-20] MEDS ORDERED: BUPR1FIL3 SL (09:33)
[2022-01-20] MEDS ORDERED: CLN.1T PO (09:33)
[2022-01-20] MEDS ORDERED: DOCU-163 PO (09:33)
[2022-01-20] MEDS ORDERED: ESTR1TAB18 PO (09:33)
[2022-01-20] MEDS ORDERED: FOLI1TAB57 PO (09:33)
[2022-01-20] MEDS ORDERED: PHEN37.582 PO (09:33)
[2022-01-20] MEDS: LACTATED RINGERS 1,000 ML IV PRN ×2 (09:40→11:40)
--- NOTE | 2022-01-20 09:46 | Progress Note-Pre Operative ---
Pre-Operative Progress Note H&P Reviewed The H&P was reviewed, patient examined and no changes noted. Date Seen by Provider: January 20, 2022 Time Seen by Provider: 09:46 Date H&P Reviewed: January 20, 2022 Time H&P Reviewed: 09:46 Pre-Operative Diagnosis: perineal ulceration, blood in stool ERIK SCHMITT DO January 20, 2022 09:46
[2022-01-20] MEDS ORDERED: LIDOCAINE/EPI 2% 1:100,00 (XYLOCAINE) 20 ML VIAL ONE (09:53)
[2022-01-20] MEDS ORDERED: fentaNYL INJ 100 MCG/2 ML AMP ONE (10:04)
[2022-01-20] MEDS ORDERED: MIDAZOLAM 2 MG/2 ML (VERSED) VIAL ONE (10:04)
[2022-01-20] MEDS ORDERED: LIDOCAINE PF 2% 5 ML (XYLOCAINE) VIAL ONE (10:48)
[2022-01-20] MEDS ORDERED: proPOfol 200 MG/20 ML (DIPRIVAN) VIAL IV ONE (10:48)
[2022-01-20] MEDS ORDERED: ONDANSETRON 4 MG/2 ML (SDV) Z0FRAN ONE (10:48)
[2022-01-20] MEDS ORDERED: SEVOFLURANE (ULTANE) 15 ML INHAL SOLN ONE (10:51)
[2022-01-20] MEDS ORDERED: MEPERIDINE (DEMEROL) INJ 50 MG/ML IVP ONE (11:15)
[2022-01-20] MEDS ORDERED: PROMETHAZINE INJ 25 MG/ML (PHENERGAN) AMP IVP ONE (11:15)
[2022-01-20] MEDS ORDERED: ONDANSETRON 4 MG/2 ML (SDV) Z0FRAN IVP PRN (11:15)
[2022-01-20] MEDS ORDERED: morphine INJ 10 MG/ML 1ML (SYR OR VIAL) IVP ONE (11:15)
[2022-01-20] MEDS ORDERED: HYDROmorphone 2 MG/ML VIAL (DILAUDID) IV ONE (11:15)
[2022-01-20] MEDS ORDERED: POLY17PO6 PO (12:24)
--- NOTE | 2022-01-20 12:26 | Discharge Inst-Simple/Standard ---
Discharge Inst-Standard Patient Instructions/Follow Up Plan of Care/Instructions/FU: Radha 2 weeks. Diltazem cream is being called in for you, only place this is made is [facility] in [place], [place]. Please pick this up. Place just inside anus three times per day. Activity as Tolerated: Yes Discharge Diet: Regular Diet (high fiber) ERIK SCHMITT DO January 20, 2022 12:25
--- NOTE | 2022-01-20 12:27 | Progress Note-Post Operative ---
Post-Operative Progess Note Surgeon (s)/Piledriver Carpenter (s) Surgeon ERIK SCHMITT DO Piledriver Carpenter: na Pre-Operative Diagnosis perineal ulceration, blood in stool Post-Operative Diagnosis superficial posterior and anterior anal fissure, perineal superficial irritation Procedure & Operative Findings Date of Procedure 01/20/22 Procedure Performed/Findings gynecological/rectal exam under anesthesia Anesthesia Type general Estimated Blood Loss Estimated blood loss (mL): none Specimens/Packing Specimens Removed na ERIK SCHMITT DO January 20, 2022 12:27
--- NOTE | 2022-01-20 16:36 | OPERATIVE REPORT ---
DATE OF SERVICE: 01/20/2022 PREOPERATIVE DIAGNOSES: Perineal ulcer and blood per rectum. POSTOPERATIVE DIAGNOSES: Superficial peroneal ulceration, hemorrhoids, anterior and posterior fissure superficial. PROCEDURE: Exam under anesthesia gynecological/rectal. SURGEON: Erik Garcia DO ANESTHESIA: General. ESTIMATED BLOOD LOSS: None. COMPLICATIONS: None. INDICATIONS: The patient is a 46-year-old female with difficult to examine in the office secondary to pain. She has been having blood in her stools. She might have had a questionable peroneal ulceration as well. She understands risks and benefits of procedure and wished to proceed. Consent was signed in the chart. DESCRIPTION OF PROCEDURE: The patient was taken to the operating suite. She was placed in lithotomy position. General anesthesia was provided. Timeout was performed. Perineum a midline very superficial ulceration between the vagina and anus. This did not extend into the vagina. The opening of the vagina was spread without any abnormality visualized. The perineum was very soft and appeared to be slight tear at midline. At the anterior and posterior opening of the anus, there are superficial tears both anterior and posteriorly. Also, at approximately 5 o'clock position, appears to have hemorrhoids present as well. No palpable polyps, masses, or ulcerations within the rectal vault. There were significant amount of hard stools that are approximately the size of a ping pong balls that were evacuated. Otherwise, no other abnormality. Nothing further was done at this point. RECOMMENDATIONS: The patient will be placed on MiraLax 17 grams b.i.d. We will also use diltiazem cream. We will have her follow up in 2 weeks. We encouraged to keep her stool soft. If continues to have bleeding or discomfort, we would also consider doing colonoscopy for reevaluation, but I think source of her bleeding is from the fissures and secondary to the extremely hard stools. Job ID: [id number] DocumentID: [id number] Dictated Date: 01/20/2022 14:25:45 Polishing Machine Tender Date: 01/20/2022 16:35:44 Dictated By: ERIK GARCIA DO
== END 2022-01-20 13:20 | disposition home or self-care (01) ==
LOC: SDC 09:04
PROVIDERS: ATTEND Surgery
DX: K60.2 Anal fissure, unspecified (principal); K64.9 Unspecified hemorrhoids; K62.5 Hemorrhage of anus and rectum
CPT/HCPCS: 87081